=== PATIENT | female | born 1980 | race Caucasian/White ===

== ENCOUNTER 2016-11-15 14:33 | Emergency (ER) | payer OTHER ==
[2016-11-15 17:51] VITALS: BP 130/71
--- NOTE | 2016-11-15 18:16 | UC ---
HPI Febrile Illness - HPI Summary HPI Summary: five days of fever to 102, chills, severe body aches, HALL, malaise, mild [place] dry cough. Has been going to work, but couldn't do it today. 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 Did get a flu shot. No rash. Poor appetite - History of Current Complaint Chief Complaint: UCGeneralIllness Time Seen by Provider: 11/15/16 17:47 Hx Obtained From: Patient Timing: Constant Initial Severity: Mild Current Severity: Moderate Aggravating Factors: Nothing Alleviating Factors: OTC Medicine Associated Signs and Symptoms: Arthralgia, Chills, Cough - dry, mild, Headache, Myalgia, Sore Throat, Weakness - Risk Factors Pseudomonas Risk Factors: Negative Serious Bacterial Infection Risk Factors: Negative - Allergy/Home Medications Allergies/Adverse Reactions: Allergies Allergy/AdvReac Type Severity Reaction Status Date / Time No Known Allergies Allergy Verified 11/15/16 17:51 Home Medications: Home Medications Ibuprofen TAB* [Advil TAB*] 600 mg PO ONCE 11/15/16 [History Confirmed 11/15/16] Topiramate TAB(*) [Topamax(*)] 25 mg PO BEDTIME 11/15/16 [History Confirmed 07/22] PMH/Surg Hx/FS Hx/Imm Hx Previously Healthy: Yes - Surgical History Surgery Procedure, Year, and Place: tubal ligation, cholecystectomy, hysterectomy Infectious Disease History: No Infectious Disease History: Denies: Hx Clostridium Difficile, Hx Hepatitis, Hx Human Immunodeficiency Virus (HIV), Hx of Known/Suspected MRSA, Hx Shingles, Hx Tuberculosis, Hx Known/ Suspected VRE, Hx Known/Suspected VRSA, History Other Infectious Disease, Traveled Outside the [place] in Last 30 Days - Family History Known Family History: Positive: None - Social History Alcohol Use: Occasionally Substance Use Type: Reports: None Smoking Status (MU): Never Smoked Tobacco Review of Systems Constitutional: Fever, Chills, Fatigue Skin: Negative Eyes: Negative ENT: Sore Throat Respiratory: Cough - dry, mild Cardiovascular: Negative Gastrointestinal: Negative Genitourinary: Negative Motor: Negative Neurovascular: Negative Musculoskeletal: Arthralgia, Myalgia Neurological: Negative Psychological: Negative All Other Systems Reviewed And Are Negative: Yes Physical Exam Triage Information Reviewed: Yes Appearance: Well-Appearing, No Pain Distress, Well-Nourished Vital Signs: Initial Vital Signs Temp 97.8 F 11/15/16 17:47 Pulse 74 11/15/16 17:47 Resp 16 11/15/16 17:47 BP 130/71 11/15/16 17:47 Pulse Ox 100 11/15/16 17:47 Vital Signs Reviewed: Yes Eye Exam: Normal Eyes: Positive: Conjunctiva Clear ENT Exam: Normal ENT: Positive: Pharyngeal erythema - mild, Nasal congestion, TMs normal. Negative: Tonsillar swelling, Tonsillar exudate, Trismus, Muffled/hoarse voice Neck exam: Normal Neck: Positive: Supple Respiratory Exam: Normal Respiratory: Positive: Lungs clear, Normal breath sounds, No respiratory distress, No accessory muscle use Cardiovascular Exam: Normal Musculoskeletal Exam: Normal Neurological Exam: Normal Psychological Exam: Normal Skin Exam: Normal Diagnostics - Laboratory Diagnostic Studies Completed/Ordered: Strep neg Course/Dx - Febrile Illness Differential Diagnoses: Meningitis, Pneumonia, Sepsis, Viremia - Diagnoses Clinic Provider Diagnoses: influenza Discharge - Discharge Plan Condition: Stable Disposition: HOME Prescriptions: HYDROcodone/ACET. 7.5/325 LIQ* [Lortab Elixir 7.5/325 per 15 ml *] 5 ml PO Q6H # 100 ml MDD 20ml Patient Education Materials: Influenza (ED) Forms: *Work Release Referrals: Jie Vyas PA [Primary Care Provider] - Additional Instructions: If your fever and sore throat continue another 5 days, consider getting a mono test. There is no treatment for mononucleosis, but sometimes it is reassuring to know why you are still ill.
== END 2016-11-15 18:29 | disposition home or self-care (01) ==
LOC: UCCORT 14:33
DX: J11.1 Influenza due to unidentified influenza virus with other respiratory manifestations (principal)
CPT/HCPCS: 87651; 99212; G0463

== ENCOUNTER 2017-12-12 09:03 | Emergency (ER) | payer OTHER ==
[2017-12-12 09:57] VITALS: BP 126/83
--- NOTE | 2017-12-12 10:23 | UC ---
Knee Pain HPI - HPI Summary HPI Summary: Pt c/o left knee pain. Pt reports slipping on ice 2 weeks ago and falling form standing to left knee. P thas been using ice, NSAIDS X 2 weeks and reports that pain is worsening and radiating both in proximal and distally. - History of Current Complaint Hx Obtained From: Patient Hx Last Menstrual Period: n/a ?: No Onset/Duration: Sudden Onset Severity Initially: Mild Severity Currently: Moderate Pain Intensity: 5 Character: Dull, Aching, Stiffness Aggravating Factor(s): Movement, Weight Bearing, Prolonged Standing, Stairs Alleviating Factor(s): Rest, Position, Cold, OTC Meds Associated Signs And Symptoms: Positive: Negative Able to Bear Weight: Yes - Risk Factors Septic Arthritis Risk Factor: Negative Gout Risk Factor: Negative <Ekaterina Flowers NP - Last Filed: 12/12/17 11:18> <Dmitriy Nichols - Last Filed: 12/12/17 12:05> - History of Current Complaint Chief Complaint: UCLowerExtremity Stated Complaint: LFT KNEE COMPLAINT Time Seen by Provider: 12/12/17 10:06 - Allergies/Home Medications Allergies/Adverse Reactions: Allergies Allergy/AdvReac Type Severity Reaction Status Date / Time No Known Allergies Allergy Verified 12/12/17 09:48 Home Medications: Home Medications Naproxen Sodium 550 mg PO PRN 12/12/17 [History] PMH/Surg Hx/FS Hx/Imm Hx Previously Healthy: Yes - Surgical History Surgical History: Yes Surgery Procedure, Year, and Place: tubal ligation, cholecystectomy, hysterectomy - Family History Known Family History: Positive: Cardiac Disease - Social History Occupation: Employed Full-time Lives: With Family Alcohol Use: Occasionally Substance Use Type: None Smoking Status (MU): Never Smoked Tobacco Have You Smoked in the Last Year: No Household Exposure Type: Cigarettes - Immunization History Most Recent Influenza Vaccination: [id number] <Ekaterina Flowers NP - Last Filed: 12/12/17 11:18> Review of Systems Constitutional: Negative Skin: Negative Eyes: Negative ENT: Negative Respiratory: Negative Cardiovascular: Negative Gastrointestinal: Negative Genitourinary: Negative Motor: Decreased ROM - left knee Neurovascular: Negative Musculoskeletal: Arthralgia, Decreased ROM - left knee, Myalgia Neurological: Negative Psychological: Negative Is Patient Immunocompromised?: No All Other Systems Reviewed And Are Negative: Yes <Ekaterina Flowers NP - Last Filed: 12/12/17 11:18> Physical Exam Triage Information Reviewed: Yes Appearance: Well-Appearing Vital Signs: Initial Vital Signs Temp 98.2 F 12/12/17 09:50 Pulse 94 12/12/17 09:50 Resp 18 12/12/17 09:50 BP 126/83 12/12/17 09:50 Pulse Ox 98 12/12/17 09:50 Vital Signs Reviewed: Yes Eye Exam: Normal ENT Exam: Normal ENT: Positive: Hearing grossly normal Neck exam: Normal Respiratory: Positive: No respiratory distress Musculoskeletal Exam: Other Musculoskeletal: Positive: ROM Limited @ - left knee secondry to pain Neurological Exam: Normal Psychological Exam: Normal Skin Exam: Normal <Ekaterina Flowers NP - Last Filed: 12/12/17 11:18> Vital Signs: Initial Vital Signs Temp 98.2 F 12/12/17 09:50 Pulse 94 12/12/17 09:50 Resp 18 12/12/17 09:50 BP 126/83 12/12/17 09:50 Pulse Ox 98 12/12/17 09:50 <Dmitriy Nichols - Last Filed: 12/12/17 12:05> Diagnostics - Radiology No standard instances Radiology Interpretation Completed By: Radiologist - IMPRESSION: NO ACUTE OSSEOUS INJURY. IF SYMPTOMS PERSIST, RECOMMEND REPEAT IMAGING. <Ekaterina Flowers NP - Last Filed: 12/12/17 11:18> Knee Pain Course/Dx - Course Course Of Treatment: I disucssed with the pt the xray results and referred her to DR. Ordoñez for follow up . - Differential Dx/Diagnosis Differential Diagnosis/HQI/PQRI: Contusion, Sprain, Strain Provider Diagnoses: left knee pain. IMPRESSION: NO ACUTE OSSEOUS INJURY. IF SYMPTOMS PERSIST, RECOMMEND REPEAT IMAGING. <Ekaterina Flowers NP - Last Filed: 12/12/17 11:18> Discharge <Ekaterina Flowers NP - Last Filed: 12/12/17 11:18> <Dmitriy Nichols - Last Filed: 12/12/17 12:05> - Discharge Plan Condition: Stable Disposition: HOME Patient Education Materials: Knee Pain (ED) Referrals: Alexis Ordoñez MD [Medical Doctor] - 12/12/17 3:00 pm Jie Vyas PA [Primary Care Provider] - If Needed Additional Instructions:
--- NOTE | 2017-12-12 10:42 | RAD ---
HISTORY: Fall, subacute trauma, pain COMPARISONS: August 19, 2007 VIEWS: 4, Frontal, lateral, axial, and oblique views of the left knee FINDINGS: BONE DENSITY: Normal. BONES: There is no displaced fracture. JOINTS: There is mild patellofemoral osteoarthritis. There is no suprapatellar joint effusion or lipohemarthrosis. ALIGNMENT: There is no dislocation. SOFT TISSUES: Unremarkable. OTHER FINDINGS: None. IMPRESSION: NO ACUTE OSSEOUS INJURY. IF SYMPTOMS PERSIST, RECOMMEND REPEAT IMAGING.
== END 2017-12-12 11:06 | disposition home or self-care (01) ==
LOC: UCCORT 09:03
DX: W00.0XXA Fall on same level due to ice and snow, initial encounter (principal); Y93.9 Activity, unspecified; Y92.9 Unspecified place or not applicable; M25.562 Pain in left knee
CPT/HCPCS: 99211; G0463

== ENCOUNTER 2018-05-17 08:14 | Emergency (ER) | payer OTHER ==
--- OUTSIDE RECORDS SUMMARY | 2018-05-17 08:22 | XMS REPORT ---
:1980 External Reference #:[id number] Author Organization [facility] 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 Jie Vyas [facility] Primary Care Physician Unavailable Payers Type Date Identification Numbers Payment Provider Subscriber Commercial Effective: Policy Number: [id number] [employer] Lorraine Espinal 2015 PayID: [id number] [address] [place] [address] Problems Date Description Provider Status Onset: 09/01/2013 Endometriosis (clinical) Jie Vyas [facility] Active Onset: 01/04/2013 Depressive disorder Jie Vyas [facility] Active Onset: 09/24/2011 Plantar fascial fibromatosis Citlalli Dominique FNP Active Onset: 03/23/2015 Migraine Jie Vyas [facility] Active Onset: 09/04/2015 Steatosis of liver Jie Vyas [facility] Active Onset: 12/18/2017 Degenerative joint disease involving Jie Vyas [facility] Active multiple joints Note: knee Onset: 01/08/2018 Mixed hyperlipidemia Jie Vyas [facility] Active Onset: 01/08/2018 Vitamin D deficiency Jie Vyas [facility] Active Onset: 04/10/2018 Taking medication Adarsh Leon M.D. Active Onset: 04/10/2018 Increased frequency of urination Adarsh Leon M.D. Active Onset: 11/26/2017 Influenza with respiratory James Dumont M.D. Resolved manifestation other than pneumonia Resolved: 01/08/2018 Onset: 11/26/2017 Fever James Dumont M.D. 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 ETOH Use Currently consumes alcohol socially Smoking Patient has never smoked Allergies, Adverse Reactions, Alerts Date Description Reaction Status Severity Comments 02/20/2015 NKDA active Medications Medication Date Status Form Strength Qnty SIG Indications Ordering Provider Diflucan 05/12 Active Tablets 150mg 1tabs 1 tab by Donato mouth x Eileen Foster 1 for yeast vaginiti s Amoxicillin/Clav 05/01 Active Tablets 875-125mg 20tabs take one J01.90 Catarina ulanate tablet MS Darron, Potassium every 12 TELECOMMUNICATION OPERATOR-C, CNM hours Cheratussin ac 05/01 Active Syrup 100-10mg/ 236ml 5ml by Jennifer 5ML mouth MD Alejandrina every 4 hour as needed cough Atrovent 05/01 Active Solution 0.06% Use 2 J01.90 Catarina sprays MS Darron, twice a TELECOMMUNICATION OPERATOR-C, CNM day Ondansetron HCL 04/27 Active Tablets 8mg 20tabs Take one J11.2 Catarina /2018 tablet MS Darron, every 8 TELECOMMUNICATION OPERATOR-C, CNM hours as needed for nausea and vomiting Sumatriptan Active Tablets 100mg take 1/2 Sa[place], Succinate / - 1 Fahed tablet by mouth at onset of aura, may repeat in 2 hours Naproxen Active Tablets 500mg take one Saada, tablet Fahed by mouth twice a day with food as needed Phendimetrazine Active Tablets 35mg 1 tablet Reinoso, Tartrate / twice MD Americo daily. Benzonatate Active Capsules 100mg Take One Unknown Capsule By Mouth Every 6 Hours as Needed For Cough Doxycycline 05/01 Hx Tablets 100mg 14tabs Take one J01.90 Catarina Monohydrate tablet MS Darron, - two TELECOMMUNICATION OPERATOR-C, CNM 05/01 times a day Levofloxacin 05/01 Hx Tablets 500mg 5tabs Take one J01.90 Catarina tablet MS Darron, - every TELECOMMUNICATION OPERATOR-C, CNM Levofloxacin 05/01 Hx Tablets 750mg 5tabs Take one J.90 Catarina tablet Darron, , - every TELECOMMUNICATION OPERATOR-C, CNM Pseudoephedrine 05/01 Hx Tablets 30mg 30tabs Take one . Catarina HCL every MS Darron, - 4-6 TELECOMMUNICATION OPERATOR-C, CNM 05/01 hours needed for congesti on Loratadine 05/01 Hx Tablets 10mg 1tabs Take one J. Catarina tablet MS Darron, - every TELECOMMUNICATION OPERATOR-C, CNM 05/01 morning Fluticasone 05/01 Hx Suspension 50mcg/Act 31.6ml To use 1 J01.90 Catarina Propionate Nasal or 2 MS Darron, [place] Allergy - sprays TELECOMMUNICATION OPERATOR-C, CNM Relief 24- Hour 05/01 in nostril Atrovent HFA 05/01 Hx Aerosol 17mcg/Act 12.900g use 2 J. Catarina m sprays MS Darron, - in each TELECOMMUNICATION OPERATOR-C, CNM 05/01 nostril /2017 twice a day Pyridium 04/10 Hx Tablets 200mg 6tabs take 1 R30.0 Andras tablet Eileen Leon - by mouth 04/27 three times a day after meals for 2 days (generic [place]) Ciprofloxacin 04/10 Hx Tablets 250mg 6tabs take 1 R30.0 Andras HCL tablet Eileen Leon - twice 04/27 daily for 3 days Fluconazole 12/29 Hx Tablets 150mg 2tabs 1 tab by Jennifer mouth MD Alejandrina - once, 01/08 repeat as needed. Monistat 7 12/29 Hx Cream 2% 1Tube apply to Jennifer Simply affected MD Alejandrina - area of 01/08 vaginal area one daily Methylprednisolo 12/23 Hx Tablets 4mg start 6 Unknown tabs on - day one 04/10 decrease by 1 tab each day until gone Oseltamivir 11/26 Hx Capsules 75mg 10caps 1 tab by J11.1 James Phosphate mouth [place], - twice a M.DDesirae 12/29 day 5 days Cyclobenzaprine 10/20 Hx Tablets 10mg 30tabs take 1 M62.830 Donato HCL tablet Eileen Foster - every 8 for muscle spasm as needed Cefuroxime 10/07 Hx Tablets 500mg 28tabs 1 tab by J01.90 Donato Axetil mouth Eileen Foster - twice a Dulera 10/07 Hx Aerosol 100-5mcg/ sample 2 puffs Act twice a Eileen Foster - day 04/10 Azithromycin 09/01 Hx Tablets 250mg 6tabs 2 tabs by mouth Eileen Foster today, then one tab by mouth daily Benzonatate 09/01 Hx Capsules 200mg 30caps 1 cap by R05 varun Foster M.D. three times a day cough Omeprazole 05/20 Hx Capsules 20mg 30caps Take One DR Milagros Foster M.D. - By Mouth 04/10 Day No Active 05/19 Hx Unknown Medications /2016 - 05/19 Cephalexin 05/19 Hx Tablets 500mg 30tabs 1 tab J01.90 Donato (or cap) Eileen Foster by mouth three times a day Fluoxetine HCL 04/03 Hx Capsules 40mg 30caps 1 by F43.23 mouth Eileen Foster every day Cephalexin 02/20 Hx Tablets 500mg 30tabs 1 tab J02.9 Donato (or cap) Eileen Foster - by mouth 04/03 times a day Magnesium-Oxide 02/10 Hx Tablets 400(241.3 90tabs 1 by Donato mg) mg mouth Eileen Foster every day Oxycodone HCL 01/23 Hx Tablets 10mg 30tabs 1 tab by Donato varun Foster M.D. - every 02/20- hours as needed migraine pain ::: Bactrim DS 11/22 Hx Tablets 800-160mg 20tabs 1 tab by Burt Donato varun Foster M.D. - twice a Amoxicillin 11/18 Hx Tablets 875mg 14tabs 1 tab by Burt Mayer varun Foster M.D. - twice a Fluconazole 11/18 Hx Tablets 150mg 1tabs 1 tab by Burt Sewell varun Foster M.D. - today 01/23 Frovatriptan 08/23 Hx Tablets 2.5mg 18tabs 1 tab po G43.009 Pedro E. Succinate at start [facility] - of Farfan, 11/18 repeat in 2 hrs, or at 4 hrs if necessar y Diclofenac 08/[address] 75mg 60tabs take one Pedro E. Sodium tablet Justin DO - by mouth 11/18 twice a day with food for pain Rizatriptan 08/15 Hx Tablets 10mg 14tabs 1 by G43.009 Pedro E. Benzoate mouth at [place] DO - start of 08/23 farfan/auraFebruary repeat in 2 hours Fluoxetine HCL 08/15 Hx Capsules 20mg 30caps Take One F43.an Milagros Foster M.D. - By Mouth 04/03 Day Fluoxetine HCL 08/01 Hx Capsules 10mg 30caps 1 by F43.23 Pedro E. /2015 mouth Justin DO - every Hydroxyzine HCL 08/01 Hx Tablets 10mg 60tabs take one F43.23 Pedro E. tablet Justin DO by mouth every 4 hours as needed for anxiety, may use 2 tabs qhs Escitalopram 02/04 Hx Tablets 10mg 30tabs Take One Pedro E. Oxalate Tablet Justin DO - By Mouth 08/04 Day Work Note 12/27 Hx May Pedro E. return Justin DO - to work 08/04/ 6....no restrict ions Metronidazole 12/26 Hx Tablets 500mg 21tabs 1 tab by A09 Pedro Wiggins mouth Justin DO - three 01/03 times a day Ondansetron HCL 12/26 Hx Tablets 8mg 14tabs take 1 A09 Pedro Wiggins tablet Justin DO by mouth every 8 hours as needed for nausea Meclizine HCL 11/07 Hx Tablets 12.5mg 30tabs one-two H81.10 Pedro Wiggins tabs Justin DO - every 6 10/21 hour by mouth as needed dizzines s Multivital-M 11/07 Hx Tablets 90tabs 1 by Pedro Wiggins mouth Justin DO every day Cephalexin 11/01 Hx Capsules 500mg 30caps 1 cap ( Pedro Wiggins or tab) Justin DO - by mouth 11/12 times a day Naprosyn 10/20 Hx Tablets 500mg 1 by mouth - twice a after meals Naproxen Kit 10/19 Hx Tablets 500mg 30tabs 2 Times A Day - prn 08/15 headache Note For Work 10/18 Hx Evaluate Noemy Wiggins d at Justin [facility] - Primary 11/07 Care for acute migraine headache . Please excuse Ondansetron 10/18 Hx Tablets 8mg 30tabs 1 tab by G43.Chandan Wiggins Dispers mouth Justin DO - every 8 01/02 hours needed nausea/m igraine Oxycodone HCL 10/18 Hx Capsules 5mg 30caps 1 cap by Lois3.Chandan Wiggins mouth Justin DO - every 4 10/21 hours needed migraine farfan ::: Referenc e #: [id number] Sumatriptan 10/18 Hx Tablets 100mg 9tabs one by Noemy Wiggins Succinate mouth at Justin DO - Onset of 08/15 headache , may repeat in 2 hours Diflucan 09/22 Hx Tablets 150mg 2tabs 1 tab by Pedro Wiggins mouth x Justin DO - 1 for 10/18 yeast vaginiti s Anexsia 09/04 Hx Tablets 5-325mg 15tabs Every 4 Hours as - Needed 10/18 prn Pain Ondansetron HCL 09/04 Hx Tablets 4mg 15tabs Every 8 Unknown Hours as - Needed 10/18 prn Nausea Cephalexin 08/24 Hx Capsules 500mg 30caps 1 cap ( J01.90 Pedro Wiggins /2014 or tab) Justin DO - by mouth 09/22 three times a day Mucinex 08/24 Hx Tablets ER 600mg 30tabs take two J01.90 Pedro Wiggins 12HR by mouth Justin [facility] - twice a 10/18 day for /2016 congesti on Work Note 08/24 Hx Evaluate Pedro Wiggins /2014 d for Justin [facility] - acute 09/22 illness today at Primary Care. Please excuse Fluticasone 08/24 Hx Suspension 50mcg/Act 16units [place] 2 J01.90 Pedro Wiggins Propionate Sprays Justin [facility] - In Each 05/19 Nostril /2016 Once Daily Neomycin/Polymyx 05/19 Hx Suspension 3.5-56443 7.500ml 3 drops 380.10 Pedro Wiggins in/Hydrocortison /2014 -1 to (L) Justin [facility] e - ear four 08/24 times a day Cefuroxime 05/19 Hx Tablets 500mg 20tabs 1 tab by 380.10 Pedro Wiggins Axetil /2014 mouth Justin [facility] - twice a /2014 Acetaminophen-Co 05/19 Hx Tablets 300-30mg 30tabs 1-2 by 380.10 Pedro Wiggins deine #3 /2014 mouth Justin [facility] - every 4 08/24 hours needed ... Nabumetone 04/06 Hx Tablets 750mg 30tabs take 2 789.07 Pedro Wiggins tablets Justin DO - by mouth 08/24 every evening with food for abdl pain Azithromycin 03/23 Hx Tablets 250mg 6tabs 2 tabs 786.2 Pedro Wiggins /2014 by mouth Justin [facility] today then one tab by mouth daily Benzonatate 03/23 Hx Capsules 200mg 30caps 1 cap by 786.2 Pedro Wiggins mouth Justin [facility] three times a day as needed cough Fluticasone 02/20 Hx Suspension 50mcg/Act 2 sprays Katie Propionate Jairo Hernandez every M.D. Lupron Depot 02/20 Hx Kit 30mg q 3 Katie /2014 months Chiquita, - per Dr Arellano 03/22 Reinoso Sumatriptan 02/20 Hx Tablets 100mg 1 tab by Katie mouth @ [place]ita, - start of M.D. 03/22 farfan, february repeat in 2 hours Escitalopram 02/20 Hx Tablets 10mg 30tabs Take One Katie Oxalate Tablet Chiquita, - By Mouth M.DDesirae 03/22 Day Escitalopram 02/20 Hx Tablets 10mg 30tabs Take One Katie Oxalate Tablet Chiquita, - By Mouth M.D. 01/18 Day Omeprazole 02/20 Hx Capsules 20mg 30caps Take One Pedro Wiggins DR Milagros Anderson DO - By Mouth 04/03 Day Topiramate 02/20 Hx Tablets 25mg 90tabs take one Donato tab in Eileen Foster the morning and three tablets by mouth at bedtime Flonase 11/16 Hx Suspension 50mcg/Act 16units 2 sprays [place]iquita, to each Katie, - nostril 03/22 day Lupron Depot 10/12 Hx Kit 11.25mg per Kyburz Fluticasone Hx Suspension 50mcg/Act 2 sprays Unknown Propionate /0000 intranas - al every Naproxen Sodium Hx Capsules 220mg as Unknown /0000 Needed - 10/18 Omeprazole Hx Capsules 20.6(20Ba 30caps Once Unknown Magnesium /0000 DR condon) mg Daily - 01/02 Calcium 600 + D 00 Hx Tablets 600-200mg 2 by Unknown /0000 -Unit mouth - once 05/19 Hydrocodone Hx Solution 7.5-325mg Take 5 Unknown Bitartrate/Aceta /0000 /15ML ML By minophen - Mouth 01/23 Every Hours For Pain Sore Throat Max Day 20ML Medications Administered in Office Medication Date Status Form Strength Qnty SIG Indications Ordering Provider Injection Administered Injection Jie Ketorolac 017 [place], Tromethamine 30 RPAC MG/mL (Toradol) Injection Administered Injection Jie Ketorolac 016 [place], Tromethamine 30 RPAC MG/mL (Toradol) Injection Administered Injection Jie Ketorolac 016 [place], Tromethamine 30 RPAC MG/mL (Toradol) Immunizations CPT Code Status Date Vaccine Lot # [id number] Given 08/15/2016 Tdap injection [id number] Given 11/07/2015 Influenza Vaccine (Fluzone) Age 3 And Older [id number] Given 07/25/2011 flu vaccination 90911 Given 10/19/2009 flu vaccination 29670 Given 10/19/2009 H1N1 Immuniation Adminstration 28608 Given 10/19/2009 H1N1 Immuniation Adminstration Vital Signs Date Vital Result Comment 05/08/2018 BP Systolic Sitting Right Arm 121 mmHg BP Diastolic Sitting Right Arm 86 mmHg Body Temperature 97.8 F Heart Rate 99 /min Respiratory Rate 16 /min Height 62.5 inches 5'2.50" Weight 178.00 lb BMI (Body Mass Index) 32.0 kg/m2 BSA (Body Surface Area) 1.83 m2 [place] body weight in kilograms 51 O2 % BldC Oximetry 95 % 05/01/2018 Body Temperature 99.1 F Heart Rate 97 /min Respiratory Rate 20 /min Height 62.5 inches 5'2.50" Weight 179.00 lb BMI (Body Mass Index) 32.2 kg/m2 BSA (Body Surface Area) 1.83 m2 [place] body weight in kilograms 51 O2 % BldC Oximetry 97 % Ra 04/27/2018 BP Systolic Sitting Left Arm 126 mmHg BP Diastolic Sitting Left Arm 87 mmHg Body Temperature 102.5 F Heart Rate 120 /min Respiratory Rate 18 /min Height 62.5 inches 5'2.50" Weight 183.00 lb BMI (Body Mass Index) 32.9 kg/m2 BSA (Body Surface Area) 1.85 m2 [place] body weight in kilograms 51 O2 % BldC Oximetry 98 % Ra 04/10/2018 BP Systolic Sitting Right Arm 110 mmHg BP Diastolic Sitting Right Arm 74 mmHg Body Temperature 97.4 F Heart Rate 92 /min reg Respiratory Rate 18 /min Height 62.5 inches 5'2.50" Weight 180.00 lb BMI (Body Mass Index) 32.4 kg/m2 BSA (Body Surface Area) 1.84 m2 [place] body weight in kilograms 51 O2 % BldC Oximetry 98 % ra 12/29/2017 BP Systolic Sitting Right Arm 130 mmHg BP Diastolic Sitting Right Arm 82 mmHg Body Temperature 98.2 F Heart Rate 100 /min Height 62.5 inches 5'2.50" Weight 197.00 lb BMI (Body Mass Index) 35.5 kg/m2 BSA (Body Surface Area) 1.91 m2 [place] body weight in kilograms 51 11/26/2017 BP Systolic Sitting Right Arm 102 mmHg BP Diastolic Sitting Right Arm 60 mmHg Body Temperature 98.4 F Heart Rate 87 /min Height 62.5 inches 5'2.50" Weight 189.00 lb BMI (Body Mass Index) 34.0 kg/m2 BSA (Body Surface Area) 1.88 m2 [place] body weight in kilograms 51 O2 % BldC Oximetry 97 % ra 10/20/2017 BP Systolic Sitting Right Arm 118 mmHg BP Diastolic Sitting Right Arm 78 mmHg Heart Rate 92 /min Height 62.5 inches 5'2.50" Weight 195.00 lb BMI (Body Mass Index) 35.1 kg/m2 BSA (Body Surface Area) 1.90 m2 [place] body weight in kilograms 51 O2 % BldC Oximetry 97 % ra 10/07/2017 BP Systolic Sitting Right Arm 118 mmHg BP Diastolic Sitting Right Arm 68 mmHg Heart Rate 104 /min Height 62.5 inches 5'2.50" Weight 196.00 lb BMI (Body Mass Index) 35.3 kg/m2 BSA (Body Surface Area) 1.91 m2 [place] body weight in kilograms 51 O2 % BldC Oximetry 98 % 09/01/2017 Body Temperature 97.5 F Heart Rate 83 /min Respiratory Rate 18 /min Height 62.5 inches 5'2.50" Weight 189.00 lb BMI (Body Mass Index) 34.0 kg/m2 BSA (Body Surface Area) 1.88 m2 [place] body weight in kilograms 51 O2 % BldC Oximetry 98 % ra 05/19/2017 BP Systolic Sitting Right Arm 118 mmHg BP Diastolic Sitting Right Arm 82 mmHg Body Temperature 97.8 F Heart Rate 78 /min Respiratory Rate 18 /min Height 62.5 inches 5'2.50" Weight 192.00 lb BMI (Body Mass Index) 34.6 kg/m2 BSA (Body Surface Area) 1.89 m2 [place] body weight in kilograms 51 O2 % BldC Oximetry 98 % ra 04/03/2017 BP Systolic Sitting Right Arm 132 mmHg BP Diastolic Sitting Right Arm 72 mmHg Height 62.5 inches 5'2.50" Weight 192.00 lb BMI (Body Mass Index) 34.6 kg/m2 BSA (Body Surface Area) 1.89 m2 [place] body weight in kilograms 51 02/20/2017 BP Systolic Sitting Right Arm 128 mmHg BP Diastolic Sitting Right Arm 68 mmHg Body Temperature 97.8 F Height 62.5 inches 5'2.50" Weight 189.50 lb BMI (Body Mass Index) 34.1 kg/m2 BSA (Body Surface Area) 1.88 m2 [place] body weight in kilograms 51 01/23/2017 BP Systolic Sitting Left Arm 136 mmHg BP Diastolic Sitting Left Arm 74 mmHg Height 62.5 inches 5'2.50" Weight 189.12 lb BMI (Body Mass Index) 34.0 kg/m2 BSA (Body Surface Area) 1.88 m2 11/18/2016 BP Systolic 118 mmHg BP Diastolic 86 mmHg Body Temperature 97.7 F Heart Rate 90 /min Respiratory Rate 16 /min Height 62.5 inches 5'2.50" Weight 193.00 lb BMI (Body Mass Index) 34.7 kg/m2 BSA (Body Surface Area) 1.89 m2 O2 % BldC Oximetry 95 % 10/21/2016 BP Systolic Sitting Right Arm 122 mmHg BP Diastolic Sitting Right Arm 80 mmHg Body Temperature 97.8 F Heart Rate 88 /min Height 62.5 inches 5'2.50" Weight 192.25 lb BMI (Body Mass Index) 34.6 kg/m2 BSA (Body Surface Area) 1.89 m2 O2 % BldC Oximetry 98 % 08/15/2016 BP Systolic Sitting Right Arm 122 mmHg BP Diastolic Sitting Right Arm 80 mmHg Height 62.5 inches 5'2.50" Weight 193.50 lb BMI (Body Mass Index) 34.8 kg/m2 BSA (Body Surface Area) 1.90 m2 08/01/2016 BP Systolic 132 mmHg BP Diastolic 88 mmHg Heart Rate 68 /min Respiratory Rate 18 /min Height 62.5 inches 5'2.50" Weight 196.00 lb BMI (Body Mass Index) 35.3 kg/m2 BSA (Body Surface Area) 1.91 m2 01/19/2016 BP Systolic 130 mmHg BP Diastolic 98 mmHg Body Temperature 98.1 F Heart Rate 98 /min Respiratory Rate 16 /min Height 62.5 inches 5'2.50" Weight 194.00 lb BMI (Body Mass Index) 34.9 kg/m2 BSA (Body Surface Area) 1.90 m2 O2 % BldC Oximetry 96 % 12/27/2015 BP Systolic 112 mmHg BP Diastolic 64 mmHg Body Temperature 98.1 F Height 62.5 inches 5'2.50" Weight 193.00 lb BMI (Body Mass Index) 34.7 kg/m2 BSA (Body Surface Area) 1.89 m2 11/07/2015 BP Systolic Sitting Left Arm 138 mmHg BP Diastolic Sitting Left Arm 94 mmHg Body Temperature 97.3 F Height 62 inches 5'2" Weight 185.00 lb BMI (Body Mass Index) 33.8 kg/m2 BSA (Body Surface Area) 1.85 m2 10/18/2015 BP Systolic Sitting Left Arm 138 mmHg BP Diastolic Sitting Left Arm 74 mmHg Body Temperature 98.1 F Heart Rate 84 /min Height 62 inches 5'2" Weight 186.25 lb BMI (Body Mass Index) 34.1 kg/m2 BSA (Body Surface Area) 1.85 m2 O2 % BldC Oximetry 100 % 08/24/2015 BP Systolic 112 mmHg BP Diastolic 70 mmHg Body Temperature 98.2 F Heart Rate 94 /min Height 62 inches 5'2" Weight 186.00 lb BMI (Body Mass Index) 34.0 kg/m2 BSA (Body Surface Area) 1.85 m2 O2 % BldC Oximetry 99 % 05/19/2015 BP Systolic 124 mmHg BP Diastolic 72 mmHg Body Temperature 98.0 F Height 62 inches 5'2" Weight 191.00 lb BMI (Body Mass Index) 34.9 kg/m2 BSA (Body Surface Area) 1.87 m2 04/06/2015 BP Systolic Sitting Left Arm 131 mmHg BP Diastolic Sitting Left Arm 92 mmHg Heart Rate 78 /min Respiratory Rate 14 /min Weight 180.00 lb O2 % BldC Oximetry 93 % 03/23/2015 BP Systolic 127 mmHg BP Diastolic 88 mmHg Body Temperature 96.5 F Heart Rate 87 /min Respiratory Rate 18 /min Weight 192.00 lb 11/16/2014 BP Systolic 132 mmHg BP Diastolic 70 mmHg Body Temperature 98.7 F Height 62 inches 5'2" Weight 199.00 lb 10/27/2014 BP Systolic 122 mmHg BP Diastolic 72 mmHg Weight 198.00 lb 08/09/2014 BP Systolic 134 mmHg BP Diastolic 86 mmHg Weight 192.00 lb O2 % BldC Oximetry 99 % 04/26/2014 BP Systolic 122 mmHg BP Diastolic 68 mmHg Weight 194.00 lb 04/21/2014 BP Systolic 118 mmHg BP Diastolic 68 mmHg Weight 194.00 lb 03/24/2014 BP Systolic 122 mmHg BP Diastolic 70 mmHg Weight 199.00 lb 11/15/2013 BP Systolic 118 mmHg BP Diastolic 70 mmHg Weight 197.00 lb 10/25/2013 Weight 194.00 lb 10/25/2013 BP Systolic 134 mmHg BP Diastolic 70 mmHg 09/13/2013 BP Systolic 124 mmHg BP Diastolic 72 mmHg Results Test Date Test Result H/L Range Note Influenza A/B Antigen 05/01/2018 Influenza A Antigen Negative (Negative) Influenza B Antigen Negative (Negative) 1 CBS W/Automated Diff 05/01/2018 White Blood Count 11.0 K/uL High 3.1-10.7 2 Red Blood Count 4.31 M/uL 3.90-5.40 2 Hemoglobin 12.6 gm/dL 11.6-15.8 2 Hematocrit 37.7 % 36.0-46.1 2 Mean Cell Volume 87.5 fl 80.9-99.0 2 Mean Corpuscular HGB 29.2 pg 25.9-32.7 2 Mean Corpuscular HGB Conc 33.4 g/dL 30.8-34.3 2 Platelet Count 398 K/uL High 155-360 2 Red Cell Distri Width SD 38.2 fl 3-47 2 Red Cell Distri Width %CV 12.1 % 11.7-14.4 2 Mean Platelet Volume 10.3 fL 8.9-12.4 2 Neut% 67.0 % 40.4-72.8 2 Lymph % 23.8 % 20.0-42.0 2 [place] % 7.2 % 4.3-13.2 2 Eo% 1.6 % 0.0-6.6 2 Bas% 0.4 % 0.0-1.1 2 Neut# 7.36 K/uL High 1.8-7.0 2 Lymph # 2.61 K/uL 1.0-4.0 2 [place] # 0.79 K/uL 0.3-0.9 2 Eos # 0.18 K/uL 0.0-0.5 2 Baso # 0.04 K/uL 0.0-0.1 2 Laboratory test 05/01/2018 [place] Screen NEGATIVE Negative 2, 3 finding (Heterophile) Slide Review 05/01/2018 Slide Review (SEE NOTE) 2, 4 Throat Culture 04/27/2018 Throat Culture NORMAL THROAT FL 5, 6 Complete Complete <SEE NOTE> Urine Dipstick 04/10/2018 Ua Color dark yellow Yellow Ua Clarity clear Clear Ua Leuko negative Negative Ua Nitrite negative Negative Ua Urobilinogen 0.2 0.2 - 1.0 E.U./dL Ua Protein trace Negative Ua PH 6.0 Low 6.5-7.5 Ua Blood negative Negative Ua Specific [place] 1.030 1.010-1.030 Ua Ketones trace Negative Ua Bilirubin negative Negative Ua Glucose negative Negative Ua RFX Micro & Culture II 04/10/2018 Urine Color YELLOW Yellow 7 Urine Clarity CLEAR Clear 7 Urine Glucose - Dipstick NEGATIVE mg/dL Negative 7 Urine Bilirubin - Dipstick NEGATIVE Negative 7 Urine Ketone NEGATIVE mg/dL Negative 7 Urine Specific [place] 1.020 1.010-1.030 7 Urine Blood NEGATIVE Negative 7 Urine PH 6.5 6.5-7.5 7 Urine Protein - Dipstick NEGATIVE mg/dL Negative 7 Urine Urobilinogen - Dipstick 0.2 E.U./dL 0.2-1.0 7 Urine Nitrite - Dipstick NEGATIVE Negative 7 Urine Leuk Esterase NEGATIVE Negative 7 Source: URINE, CLEAN CAT <SEE NOTE> 7, 8 Urine Culture 04/10/2018 Urine Culture NO GROWTH: 7, 9 FINAL <SEE NOTE> Ketones Ur 05/10/2017 Ketones Ur Negative Negative Strip.auto-mCnc Strip.auto-mCnc Leukocyte esterase 05/10/2017 Leukocyte esterase Negative Negative Ur Ql Strip.auto Ur Ql Strip.auto Lymphocytes 05/10/2017 Lymphocytes 2.68 1.0-4.0 [#/volume] in Blood [#/volume] in Blood by Automated count by Automated count Lymphocytes/leuk NFr 05/10/2017 Lymphocytes/leuk NFr 32.0 20.0-42.0 Bld Auto Bld Auto MCV RBC Auto 05/10/2017 MCV RBC Auto 85.2 80.9-99.0 Monocytes/leuk NFr 05/10/2017 Monocytes/leuk NFr 6.7 4.3-13.2 Bld Auto Bld Auto Neutrophils # Bld 05/10/2017 Neutrophils # Bld 4.96 1.8-7.0 Auto Auto Neutrophils/leuk NFr 05/10/2017 Neutrophils/leuk NFr 59.2 40.4-72.8 Bld Auto Bld Auto Nitrite Ur Ql 05/10/2017 Nitrite Ur Ql Negative Negative Strip.auto Strip.auto PMV Bld Auto 05/10/2017 PMV Bld Auto 10.5 8.9-12.4 Platelets [#/volume] 05/10/2017 Platelets [#/volume] 309 150-400 in Blood by in Blood by Automated count Automated count Potassium SerPl-sCnc 05/10/2017 Potassium SerPl-sCnc 4.1 3.5-5.1 Prot SerPl-mCnc 05/10/2017 Prot SerPl-mCnc 8.2 6.4-8.2 Prot Ur 05/10/2017 Prot Ur Trace Negative Strip.auto-mCnc Strip.auto-mCnc RDW RBC Auto 05/10/2017 RDW RBC Auto 38.6 3-47 RDW RBC Auto-Rto 05/10/2017 RDW RBC Auto-Rto 12.7 11.7-14.4 Serum or plasma 05/10/2017 Serum or plasma 139 73-393 lipase measurement lipase measurement (enzymatic acti (enzymatic activity/volume) Serum or plasma 05/10/2017 Serum or plasma 0.4 0.2-1.0 total bilirubin total bilirubin measurement (mass/ measurement (mass/volume) Sodium SerPl-sCnc 05/10/2017 Sodium SerPl-sCnc 140 136-145 Urine appearance 05/10/2017 Urine appearance Clear Clear determination determination Urine glucose 05/10/2017 Urine glucose Negative Negative measurement by measurement by automated test strip automated test strip (mass/volume) Urine hemoglobin 05/10/2017 Urine hemoglobin Negative Negative detection by detection by automated test strip automated test strip Urine total 05/10/2017 Urine total Negative Negative bilirubin detection bilirubin detection by automated test by automated test strip Urobilinogen Ur 05/10/2017 Urobilinogen Ur 0.2 0.2-1.0 Strip-aCnc Strip-aCnc WBC # Bld Auto 05/10/2017 WBC # Bld Auto 8.4 3.1-10.7 pH Ur Strip.auto 05/10/2017 pH Ur Strip.auto 6.0 Low 6.5-7.5 Ua RFX Micro & 05/10/2017 Urine Color YELLOW Yellow 10 Culture II Urine Clarity CLEAR Clear 10 Urine Glucose - Dipstick NEGATIVE mg/dL Negative 10 Urine Bilirubin - Dipstick NEGATIVE Negative 10 Urine Ketone NEGATIVE mg/dL Negative 10 Urine Specific [place] >=1.030 1.010-1.030 10 Urine Blood NEGATIVE Negative 10 Urine PH 6.0 Low 6.5-7.5 10 Urine Protein - Dipstick TRACE mg/dL Negative 10 Urine Urobilinogen - Dipstick 0.2 E.U./dL 0.2-1.0 10 Urine Nitrite - Dipstick NEGATIVE Negative 10 Urine Leuk Esterase NEGATIVE Negative 10 Source: URINE, CLEAN CAT <SEE NOTE> 10, 11 CBS W/Automated Diff 05/10/2017 White Blood Count 8.4 K/uL 3.1-10.7 10 Red Blood Count 4.54 M/uL 3.90-5.40 10 Hemoglobin 13.7 gm/dL 11.6-15.8 10 Hematocrit 38.7 % 36.0-46.1 10 Mean Cell Volume 85.2 fl 80.9-99.0 10 Mean Corpuscular HGB 30.2 pg 25.9-32.7 10 Mean Corpuscular HGB Conc 35.4 g/dL High 30.8-34.3 10 Platelet Count 309 K/uL 150-400 10 Red Cell Distri Width SD 38.6 fl 3-47 10 Red Cell Distri Width %CV 12.7 % 11.7-14.4 10 Mean Platelet Volume 10.5 fL 8.9-12.4 10 Neut% 59.2 % 40.4-72.8 10 Lymph % 32.0 % 20.0-42.0 10 [place] % 6.7 % 4.3-13.2 10 Eo% 1.6 % 0.0-6.6 10 Bas% 0.5 % 0.0-1.1 10 Neut# 4.96 K/uL 1.8-7.0 10 Lymph # 2.68 K/uL 1.0-4.0 10 [place] # 0.56 K/uL 0.3-0.9 10 Eos # 0.13 K/uL 0.0-0.5 10 Baso # 0.04 K/uL 0.0-0.1 10 Comprehensive Metabolic Panel 05/10/2017 Glucose 117 mg/dL High 74-106 10 BUN 11 mg/dL 7-18 10 Creatinine 0.7 mg/dL 0.6-1.3 10 Glom Filtration Rate, Estimate >60 mL/min >60 10 If >60 mL/min >60 10, 12 BUN/Creat 15.7 ratio 10 Sodium 140 mmol/L 136-145 10 Potassium 4.1 mmol/L 3.5-5.1 10 Chloride 107 mmol/L 98-107 10 Carbon Dioxide 26 mmol/L 21-32 10 Anion Gap 7 mEq/L Low 8-16 10 Calcium 8.9 mg/dL 8.5-10.1 10 Total Protein 8.2 g/dL 6.4-8.2 10 Albumin 3.7 g/dL 3.4-5.0 10 Globulin 4.5 g/dL High 1.9-4.3 10 Alb/Glob 0.8 ratio 10 Bilirubin,Total 0.4 mg/dL 0.2-1.0 10 Sgot/Ast 32 U/L 15-37 10 SGPT/Alt 40 U/L 12-78 10 Alkaline Phosphatase 111 U/L 45-117 10 Laboratory test finding 05/10/2017 Lipase 139 U/L 73-393 10 HCG,Serum (Qualitative) NEGATIVE (Negative) 10, 13 Alp SerPl-cCnc 05/10/2017 Alp SerPl-cCnc 111 45-117 Alt SerPl-cCnc 05/10/2017 Alt SerPl-cCnc 40 12-78 Albumin SerPl-mCnc 05/10/2017 Albumin SerPl-mCnc 3.7 3.4-5.0 Albumin/Glob SerPl 05/10/2017 Albumin/Glob SerPl 0.8 Anion Gap SerPl-sCnc 05/10/2017 Anion Gap SerPl-sCnc 7 Low 8-16 Aspartate 05/10/2017 Aspartate 32 15-37 aminotransferase aminotransferase [Enzymatic activity/vol [Enzymatic activity/volume] in Serum or Plasma Automated erythrocyte 05/10/2017 Automated erythrocyte 30.2 25.9-32.7 mean corpuscular mean corpuscular hemoglobin hemoglobin (mass per erythrocyte) Automated erythrocyte 05/10/2017 Automated erythrocyte 35.4 High 30.8- 34.3 mean corpuscular mean corpuscular hemoglobin hemoglobin concentration measurement (mass/volume) BUN SerPl-mCnc 05/10/2017 BUN SerPl-mCnc 11 7-18 BUN/Creat SerPl 05/10/2017 BUN/Creat SerPl 15.7 Hct VFr Bld Auto 05/10/2017 Hct VFr Bld Auto 38.7 36.0-46.1 Glucose [Mass/volume] 05/10/2017 Glucose [Mass/volume] 117 High 74-106 in Serum or Plasma in Serum or Plasma Globulin Ser Calc-mCnc 05/10/2017 Globulin Ser Calc-mCnc 4.5 High 1.9-4.3 Eosinophil/leuk NFr Bld 05/10/2017 Eosinophil/leuk NFr 1.6 0.0-6.6 Auto Bld Auto Eosinophil # Bld Auto 05/10/2017 Eosinophil # Bld Auto 0.13 0.0-0.5 Creat SerPl-mCnc 05/10/2017 Creat SerPl-mCnc 0.7 0.6-1.3 Color Ur 05/10/2017 Color Ur Yellow Yellow Chloride SerPl-sCnc 05/10/2017 Chloride SerPl-sCnc 107 98-107 Calcium SerPl-mCnc 05/10/2017 Calcium SerPl-mCnc 8.9 8.5-10.1 Co2 SerPl-sCnc 05/10/2017 Co2 SerPl-sCnc 26 21-32 Blood monocytes 05/10/2017 Blood monocytes 0.56 0.3-0.9 automated count automated count (number/volume) (number/volume) Blood hemoglobin 05/10/2017 Blood hemoglobin 13.7 11.6-15.8 measurement measurement (mass/volume) (mass/volume) Blood erythrocytes 05/10/2017 Blood erythrocytes 4.54 3.90-5.40 automated count automated count (number/volume) (number/volume) Basophils/leuk NFr Bld 05/10/2017 Basophils/leuk NFr Bld 0.5 0.0-1.1 Auto Auto Basophils [#/volume] in 05/10/2017 Basophils [#/volume] 0.04 0.0-0.1 Blood by Automated in Blood by Automated count count Xray 02/28/2017 Foot, 2 Views, Left <pending> Laboratory test finding 11/15/2016 Rapid Strep Molecular Negative Negative 14 CBS W/Automated Diff 10/21/2016 White Blood Count 8.8 K/uL 3.1-10.7 15 Red Blood Count 4.67 M/uL 3.90-5.40 15 Hemoglobin 13.7 gm/dL 11.6-15.8 15 Hematocrit 40.2 % 36.0-46.1 15 Mean Cell Volume 86.1 fl 80.9-99.0 15 Mean Corpuscular HGB 29.3 pg 25.9-32.7 15 Mean Corpuscular HGB Conc 34.1 g/dL 30.8-34.3 15 Platelet Count 331 K/uL 155-360 15 Red Cell Distri Width SD 40.2 fl 3-47 15 Red Cell Distri Width %CV 13.1 % 11.7-14.4 15 Mean Platelet Volume 10.9 fL 8.9-12.4 15 Neut% 61.0 % 40.4-72.8 15 Lymph % 30.9 % 20.0-42.0 15 [place] % 6.2 % 4.3-13.2 15 Eo% 1.6 % 0.0-6.6 15 Bas% 0.3 % 0.0-1.1 15 Neut# 5.38 K/uL 1.8-7.0 15 Lymph # 2.73 K/uL 1.0-4.0 15 [place] # 0.55 K/uL 0.3-0.9 15 Eos # 0.14 K/uL 0.0-0.5 15 Baso # 0.03 K/uL 0.0-0.1 15 Liver Function Tests 10/21/2016 Total Protein 7.8 g/dL 6.4-8.2 15 Albumin 3.9 g/dL 3.4-5.0 15 Globulin 3.9 g/dL 1.9-4.3 15 Alb/Glob 1.0 ratio 15 Bilirubin,Total 0.7 mg/dL 0.2-1.0 15 Bilirubin,Direct 0.1 mg/dL 0.0-0.2 15 Bilirubin,Indirect 0.6 mg/dL 0.0-0.9 15 Sgot/Ast 24 U/L 15-37 15 SGPT/Alt 34 U/L 12-78 15 Alkaline Phosphatase 100 U/L 45-117 15 Laboratory test finding 10/21/2016 Lipase 149 U/L 73-393 15 Amylase 63 U/L 25-115 15 Laboratory test 12/27/2015 Cryptosporidium Antigen Negative For finding Cryptosporidium Specific Antigen Giardia Antigen (Hal) Negative For Giardia Specific Antigen. Shiga Toxin Test Shiga Toxin 1 Not Detected Stool Culture Organism: No Enteric Pathogens Isolated Laboratory test finding 12/27/2015 Aerobic Blood Culture No Growth: Final Report Anaerobic Blood Culture No Growth: Final Report Blood Culture 12/27/2015 Blood Culture Aerobic See Note 16 Blood Culture Anaerobic See Note 17 Urine Screen 12/26/2015 Urine Color YELLOW Yellow Urine Clarity SL CLOUDY Clear Urine Glucose - Dipstick NEGATIVE mg/dL Negative Urine Bilirubin - Dipstick NEGATIVE Negative Urine Ketone NEGATIVE mg/dL Negative Urine Specific [place] >=1.030 1.010-1.030 Urine Blood NEGATIVE Negative Urine PH 5.5 Low 6.5-7.5 Urine Protein - Dipstick NEGATIVE mg/dL Negative Urine Urobilinogen - Dipstick 0.2 E.U./dL 0.2-1.0 Urine Nitrite - Dipstick NEGATIVE Negative Urine Leuk Esterase NEGATIVE Negative CBC 12/26/2015 White Blood Count 9.6 K/uL 3.1-10.7 Red Blood Count 4.24 M/uL 3.90-5.40 Hemoglobin 12.6 gm/dL 11.6-15.8 Hematocrit 37.0 % 36.0-46.1 Mean Cell Volume 87.3 fl 80.9-99.0 Mean Corpuscular HGB 29.7 pg 25.9-32.7 Mean Corpuscular HGB Conc 34.1 g/dL 30.8-34.3 Platelet Count 418 K/uL High 155-360 Red Cell Distri Width %CV 12.5 % 11.7-14.4 Mean Platelet Volume 9.9 fL 8.9-12.4 Laboratory test finding 12/26/2015 Lipase 174 U/L 73-393 HCG,Serum (Qualitative) NEGATIVE (Negative) Comprehensive Metabolic Panel 12/26/2015 Glucose 92 mg/dL 74-106 BUN 16 mg/dL 7-18 Creatinine 0.8 mg/dL 0.6-1.3 Glom Filtration Rate, Estimate >60 mL/min >60 If >60 mL/min >60 18 BUN/Creat 20.0 ratio Sodium 139 mmol/L 136-145 Potassium 3.7 mmol/L 3.5-5.1 Chloride 104 mmol/L 98-107 Carbon Dioxide 28 mmol/L 21-32 Anion Gap 7 mEq/L Low 8-16 Calcium 8.6 mg/dL 8.5-10.1 Total Protein 7.8 g/dL 6.4-8.2 Albumin 3.8 g/dL 3.4-5.0 Globulin 4.0 g/dL 1.9-4.3 Alb/Glob 1.0 ratio Bilirubin,Total 0.5 mg/dL 0.2-1.0 Sgot/Ast 25 U/L 15-37 SGPT/Alt 38 U/L 12-78 Alkaline Phosphatase 95 U/L 45-117 Laboratory test finding 12/26/2015 Carbon Dioxide Level 28 21-32 RDW Coefficient of Variation 12.5 11.7-14.4 Sodium Level 139 136-145 Urine Bilirubin Negative Negative Urine Glucose (Ua) Negative Negative Urine Ketones Negative Negative Urine Leukocyte Esterase Negative Negative Urine Nitrite Negative Negative Urine Protein Negative Negative Urine Urobilinogen 0.2 0.2-1.0 Comprehensive Metabolic Panel 12/12/2015 Glucose 99 mg/dL 74-106 BUN 21 mg/dL High 7-18 Creatinine 0.7 mg/dL 0.6-1.3 Glom Filtration Rate, Estimate >60 mL/min >60 If >60 mL/min >60 19 BUN/Creat 30.0 ratio Sodium 139 mmol/L 136-145 Potassium 3.9 mmol/L 3.5-5.1 Chloride 104 mmol/L 98-107 Carbon Dioxide 27 mmol/L 21-32 Anion Gap 8 mEq/L 8-16 Calcium 8.4 mg/dL Low 8.5-10.1 Total Protein 8.0 g/dL 6.4-8.2 Albumin 3.7 g/dL 3.4-5.0 Globulin 4.3 g/dL 1.9-4.3 Alb/Glob 0.9 ratio Bilirubin,Total 0.4 mg/dL 0.2-1.0 Sgot/Ast 19 U/L 15-37 SGPT/Alt 37 U/L 12-78 Alkaline Phosphatase 88 U/L 45-117 Laboratory test finding 12/12/2015 Lipase 139 U/L 73-393 CBC W/Automated Diff 12/12/2015 White Blood Count 11.2 K/uL High 3.1-10.7 Red Blood Count 4.44 M/uL 3.90-5.40 Hemoglobin 13.3 gm/dL 11.6-15.8 Hematocrit 38.9 % 36.0-46.1 Mean Cell Volume 87.6 fl 80.9-99.0 Mean Corpuscular HGB 30.0 pg 25.9-32.7 Mean Corpuscular HGB Conc 34.2 g/dL 30.8-34.3 Platelet Count 392 K/uL High 155-360 Red Cell Distri Width SD 40.0 fl 3-47 Red Cell Distri Width %CV 12.9 % 11.7-14.4 Mean Platelet Volume 10.0 fL 8.9-12.4 Neut% 61.2 % 40.4-72.8 Lymph % 31.0 % 17.0-46.1 [place] % 5.9 % 4.3-13.2 Eo% 1.5 % 0.0-6.6 Bas% 0.4 % 0.0-1.1 Neut# 6.85 K/uL 1.8-7.0 Lymph # 3.47 K/uL 1.8-7.0 [place] # 0.66 K/uL 0.3-0.9 Eos # 0.17 K/uL 0.0-0.5 Baso # 0.04 K/uL 0.0-0.1 Laboratory test finding 12/12/2015 Slide Review . 20 Laboratory test finding 12/12/2015 Basophils # (Auto) 0.04 0.0-0.1 Basophils (%) (Auto) 0.4 0.0-1.1 Eosinophils # (Auto) 0.17 0.0-0.5 Eosinophils (%) (Auto) 1.5 0.0-6.6 Lymphocytes # (Auto) 3.47 1.8-7.0 Lymphocytes (%) (Auto) 31.0 17.0-46.1 Manual Slide Review (Hematology) . Monocytes # (Auto) 0.66 0.3-0.9 Monocytes (%) (Auto) 5.9 4.3-13.2 Neutrophils # (Auto) 6.85 1.8-7.0 Neutrophils (%) (Auto) 61.2 40.4-72.8 RDW Coefficient of Variation 12.9 11.7-14.4 Red Cell Distribution Width 40.0 3-47 Sodium Level 139 136-145 Carbon Dioxide Level 27 21-32 Laboratory test finding 12/12/2015 Urine HCG (Qualitative) NEGATIVE Negative 21 Urinalysis With 12/12/2015 Urine Color YELLOW Yellow Microscopic Urine Clarity CLEAR Clear Urine Glucose - Dipstick NEGATIVE mg/dL Negative Urine Bilirubin - Dipstick NEGATIVE Negative Urine Ketone NEGATIVE mg/dL Negative Urine Specific [place] >=1.030 1.010-1.030 Urine Blood LARGE High Negative Urine PH 5.5 Low 6.5-7.5 Urine Protein - Dipstick NEGATIVE mg/dL Negative Urine Urobilinogen - Dipstick 0.2 E.U./dL 0.2-1.0 Urine Nitrite - Dipstick NEGATIVE Negative Urine Leuk Esterase NEGATIVE Negative Urine RBC 0-2 rbc/hpf 0-2 Urine WBC 0-2 wbc/hpf 0-7 Urine Epithelial Cells FEW NONESEEN/lpf Urine Bacteria VERY FEW NONESEEN Urine Mucus VERY FEW NONESEEN Urine Screen 12/12/2015 Ua RFX Micro + Culture II See Note 22 Laboratory test finding 12/12/2015 Urine Bilirubin Negative Negative Urine Glucose (Ua) Negative Negative Urine Ketones Negative Negative Urine Leukocyte Esterase Negative Negative Urine Nitrite Negative Negative Urine Protein Negative Negative Urine Urobilinogen 0.2 0.2-1.0 CBC 12/08/2015 White Blood Count 8.7 K/uL 3.1-10.7 Red Blood Count 4.57 M/uL 3.90-5.40 Hemoglobin 13.7 gm/dL 11.6-15.8 Hematocrit 39.8 % 36.0-46.1 Mean Cell Volume 87.1 fl 80.9-99.0 Mean Corpuscular HGB 30.0 pg 25.9-32.7 Mean Corpuscular HGB Conc 34.4 g/dL High 30.8-34.3 Platelet Count 352 K/uL 155-360 Red Cell Distri Width %CV 12.9 % 11.7-14.4 Mean Platelet Volume 10.0 fL 8.9-12.4 Urine Screen 12/08/2015 Urine Color YELLOW Yellow Urine Clarity CLEAR Clear Urine Glucose - Dipstick NEGATIVE mg/dL Negative Urine Bilirubin - Dipstick NEGATIVE Negative Urine Ketone NEGATIVE mg/dL Negative Urine Specific [place] 1.020 1.010-1.030 Urine Blood NEGATIVE Negative Urine PH 5.5 Low 6.5-7.5 Urine Protein - Dipstick NEGATIVE mg/dL Negative Urine Urobilinogen - Dipstick 0.2 E.U./dL 0.2-1.0 Urine Nitrite - Dipstick NEGATIVE Negative Urine Leuk Esterase NEGATIVE Negative Laboratory test finding 12/08/2015 RDW Coefficient of Variation 12.9 11.7 -14.4 Urine Bilirubin Negative Negative Urine Glucose (Ua) Negative Negative Urine Ketones Negative Negative Urine Leukocyte Esterase Negative Negative Urine Nitrite Negative Negative Urine Protein Negative Negative Urine Urobilinogen 0.2 0.2-1.0 Urine Screen 12/04/2015 Urine Color YELLOW Yellow Urine Clarity SL CLOUDY Clear Urine Glucose - Dipstick NEGATIVE mg/dL Negative Urine Bilirubin - Dipstick NEGATIVE Negative Urine Ketone NEGATIVE mg/dL Negative Urine Specific [place] 1.025 1.010-1.030 Urine Blood NEGATIVE Negative Urine PH 5.5 Low 6.5-7.5 Urine Protein - Dipstick NEGATIVE mg/dL Negative Urine Urobilinogen - Dipstick 0.2 E.U./dL 0.2-1.0 Urine Nitrite - Dipstick NEGATIVE Negative Urine Leuk Esterase NEGATIVE Negative Laboratory test finding 12/04/2015 Urine Bilirubin Negative Negative Urine Glucose (Ua) Negative Negative Urine Ketones Negative Negative Urine Leukocyte Esterase Negative Negative Urine Nitrite Negative Negative Urine Protein Negative Negative Urine Urobilinogen 0.2 0.2-1.0 Laboratory test finding 12/04/2015 Basophils # (Auto) 0.06 0.0-0.1 Basophils (%) (Auto) 0.7 0.0-1.1 Eosinophils # (Auto) 0.13 0.0-0.5 Eosinophils (%) (Auto) 1.5 0.0-6.6 Lymphocytes # (Auto) 2.88 1.8-7.0 Lymphocytes (%) (Auto) 33.0 17.0-46.1 Monocytes # (Auto) 0.48 0.3-0.9 Monocytes (%) (Auto) 5.5 4.3-13.2 Neutrophils # (Auto) 5.19 1.8-7.0 Neutrophils (%) (Auto) 59.3 40.4-72.8 RDW Coefficient of Variation 12.8 11.7-14.4 Red Cell Distribution Width 40.0 3-47 Sodium Level 139 136-145 Carbon Dioxide Level 26 21-32 Laboratory test finding 12/04/2015 Lipase 143 U/L 73-393 HCG,Serum (Qualitative) NEGATIVE (Negative) Comprehensive Metabolic Panel 12/04/2015 Glucose 99 mg/dL 74-106 BUN 14 mg/dL 7-18 Creatinine 0.7 mg/dL 0.6-1.3 Glom Filtration Rate, Estimate >60 mL/min >60 If >60 mL/min >60 23 BUN/Creat 20.0 ratio Sodium 139 mmol/L 136-145 Potassium 3.5 mmol/L 3.5-5.1 Chloride 104 mmol/L 98-107 Carbon Dioxide 26 mmol/L 21-32 Anion Gap 9 mEq/L 8-16 Calcium 8.8 mg/dL 8.5-10.1 Total Protein 8.5 g/dL High 6.4-8.2 Albumin 4.1 g/dL 3.4-5.0 Globulin 4.4 g/dL High 1.9-4.3 Alb/Glob 0.9 ratio Bilirubin,Total 0.7 mg/dL 0.2-1.0 Sgot/Ast 21 U/L 15-37 SGPT/Alt 36 U/L 12-78 Alkaline Phosphatase 97 U/L 45-117 CBC W/Automated Diff 12/04/2015 White Blood Count 8.7 K/uL 3.1-10.7 Red Blood Count 4.36 M/uL 3.90-5.40 Hemoglobin 13.1 gm/dL 11.6-15.8 Hematocrit 38.1 % 36.0-46.1 Mean Cell Volume 87.4 fl 80.9-99.0 Mean Corpuscular HGB 30.0 pg 25.9-32.7 Mean Corpuscular HGB Conc 34.4 g/dL High 30.8-34.3 Platelet Count 367 K/uL High 155-360 Red Cell Distri Width SD 40.0 fl 3-47 Red Cell Distri Width %CV 12.8 % 11.7-14.4 Mean Platelet Volume 10.4 fL 8.9-12.4 Neut% 59.3 % 40.4-72.8 Lymph % 33.0 % 17.0-46.1 [place] % 5.5 % 4.3-13.2 Eo% 1.5 % 0.0-6.6 Bas% 0.7 % 0.0-1.1 Neut# 5.19 K/uL 1.8-7.0 Lymph # 2.88 K/uL 1.8-7.0 [place] # 0.48 K/uL 0.3-0.9 Eos # 0.13 K/uL 0.0-0.5 Baso # 0.06 K/uL 0.0-0.1 Laboratory test finding 11/23/2015 Thyroid Stim Hormone 0.80 uIU/mL 0.36- 3.74 Laboratory test finding 10/31/2015 Basophils # (Auto) 0.05 0.0-0.1 Basophils (%) (Auto) 0.5 0.0-1.1 Eosinophils # (Auto) 0.14 0.0-0.5 Eosinophils (%) (Auto) 1.5 0.0-6.6 Lymphocytes # (Auto) 3.57 1.8-7.0 Lymphocytes (%) (Auto) 38.3 17.0-46.1 Monocytes # (Auto) 0.54 0.3-0.9 Monocytes (%) (Auto) 5.8 4.3-13.2 Neutrophils # (Auto) 5.01 1.8-7.0 Neutrophils (%) (Auto) 53.9 40.4-72.8 RDW Coefficient of Variation 12.8 11.7-14.4 Red Cell Distribution Width 38.8 3-47 Sodium Level 141 136-145 Carbon Dioxide Level 23 21-32 Laboratory test finding 10/31/2015 HCG,Serum (Qualitative) NEGATIVE ( Negative) Comprehensive Metabolic 10/31/2015 Glucose 81 mg/dL 74-106 Panel BUN 16 mg/dL 7-18 Creatinine 0.8 mg/dL 0.6-1.3 Glom Filtration Rate, Estimate >60 mL/min >60 If >60 mL/min >60 24 BUN/Creat 20.0 ratio Sodium 141 mmol/L 136-145 Potassium 3.7 mmol/L 3.5-5.1 Chloride 109 mmol/L High 98-107 Carbon Dioxide 23 mmol/L 21-32 Anion Gap 9 mEq/L 8-16 Calcium 7.9 mg/dL Low 8.5-10.1 Total Protein 7.9 g/dL 6.4-8.2 Albumin 3.6 g/dL 3.4-5.0 Globulin 4.3 g/dL 1.9-4.3 Alb/Glob 0.8 ratio Bilirubin,Total 0.5 mg/dL 0.2-1.0 Sgot/Ast 15 U/L 15-37 SGPT/Alt 26 U/L 12-78 Alkaline Phosphatase 87 U/L 45-117 CBC W/Automated Diff 10/31/2015 White Blood Count 9.3 K/uL 3.1-10.7 Red Blood Count 4.35 M/uL 3.90-5.40 Hemoglobin 13.2 gm/dL 11.6-15.8 Hematocrit 37.5 % 36.0-46.1 Mean Cell Volume 86.2 fl 80.9-99.0 Mean Corpuscular HGB 30.3 pg 25.9-32.7 Mean Corpuscular HGB Conc 35.2 g/dL High 30.8-34.3 Platelet Count 387 K/uL High 155-360 Red Cell Distri Width SD 38.8 fl 3-47 Red Cell Distri Width %CV 12.8 % 11.7-14.4 Mean Platelet Volume 10.0 fL 8.9-12.4 Neut% 53.9 % 40.4-72.8 Lymph % 38.3 % 17.0-46.1 [place] % 5.8 % 4.3-13.2 Eo% 1.5 % 0.0-6.6 Bas% 0.5 % 0.0-1.1 Neut# 5.01 K/uL 1.8-7.0 Lymph # 3.57 K/uL 1.8-7.0 [place] # 0.54 K/uL 0.3-0.9 Eos # 0.14 K/uL 0.0-0.5 Baso # 0.05 K/uL 0.0-0.1 Laboratory test finding 09/04/2015 Urine HCG (Qualitative) NEGATIVE Negative 25 Urinalysis With 09/04/2015 Urine Color YELLOW Yellow Microscopic Urine Clarity CLEAR Clear Urine Glucose - Dipstick NEGATIVE mg/dL Negative Urine Bilirubin - Dipstick NEGATIVE Negative Urine Ketone TRACE mg/dL High Negative Urine Specific [place] 1.025 1.010-1.030 Urine Blood LARGE High Negative Urine PH 6.0 Low 6.5-7.5 Urine Protein - Dipstick NEGATIVE mg/dL Negative Urine Urobilinogen - Dipstick 0.2 E.U./dL 0.2-1.0 Urine Nitrite - Dipstick NEGATIVE Negative Urine Leuk Esterase NEGATIVE Negative Urine RBC 20-30 rbc/hpf High 0-2 Urine WBC 0-2 wbc/hpf 0-7 Urine Epithelial Cells FEW NONESEEN/lpf Urine Bacteria FEW NONESEEN Urine Mucus SMALL NONESEEN Laboratory test finding 09/04/2015 Ua RFX Micro + Culture II See Note 26 Laboratory test finding 09/04/2015 Urine Bilirubin Negative Negative Urine Glucose (Ua) Negative Negative Urine Ketones Trace High Negative Urine Leukocyte Esterase Negative Negative Urine Nitrite Negative Negative Urine Protein Negative Negative Urine Urobilinogen 0.2 0.2-1.0 Comprehensive Metabolic Panel 09/04/2015 Glucose 86 mg/dL 74-106 BUN 19 mg/dL High 7-18 Creatinine 0.6 mg/dL 0.6-1.3 Glom Filtration Rate, Estimate >60 mL/min >60 If >60 mL/min >60 27 BUN/Creat 31.6 ratio Sodium 141 mmol/L 136-145 Potassium 3.9 mmol/L 3.5-5.1 Chloride 106 mmol/L 98-107 Carbon Dioxide 25 mmol/L 21-32 Anion Gap 10 mEq/L 8-16 Calcium 8.9 mg/dL 8.5-10.1 Total Protein 8.0 g/dL 6.4-8.2 Albumin 4.2 g/dL 3.4-5.0 Globulin 3.8 g/dL 1.9-4.3 Alb/Glob 1.1 ratio Bilirubin,Total 0.6 mg/dL 0.2-1.0 Sgot/Ast 35 U/L 15-37 SGPT/Alt 43 U/L 12-78 Alkaline Phosphatase 95 U/L 45-117 CBS W/Automated Diff 09/04/2015 White Blood Count 9.9 K/uL 3.1-10.7 Red Blood Count 4.34 M/uL 3.90-5.40 Hemoglobin 12.8 gm/dL 11.6-15.8 Hematocrit 37.4 % 36.0-46.1 Mean Cell Volume 86.2 fl 80.9-99.0 Mean Corpuscular HGB 29.5 pg 25.9-32.7 Mean Corpuscular HGB Conc 34.2 g/dL 30.8-34.3 Platelet Count 410 K/uL High 155-360 Red Cell Distri Width SD 39.5 fl 3-47 Red Cell Distri Width %CV 12.9 % 11.7-14.4 Mean Platelet Volume 10.1 fL 8.9-12.4 Neut% 60.8 % 40.4-72.8 Lymph % 31.9 % 17.0-46.1 [place] % 5.5 % 4.3-13.2 Eo% 1.4 % 0.0-6.6 Bas% 0.4 % 0.0-1.1 Neut# 6.03 K/uL 1.0-7.0 Lymph # 3.17 K/uL 1.8-7.0 [place] # 0.55 K/uL 0.3-0.9 Eos # 0.14 K/uL 0.0-0.5 Baso # 0.04 K/uL 0.0-0.1 Laboratory test finding 09/04/2015 Basophils # (Auto) 0.04 0.0-0.1 Basophils (%) (Auto) 0.4 0.0-1.1 Eosinophils # (Auto) 0.14 0.0-0.5 Eosinophils (%) (Auto) 1.4 0.0-6.6 Lymphocytes # (Auto) 3.17 1.8-7.0 Lymphocytes (%) (Auto) 31.9 17.0-46.1 Monocytes # (Auto) 0.55 0.3-0.9 Monocytes (%) (Auto) 5.5 4.3-13.2 Neutrophils # (Auto) 6.03 1.0-7.0 Neutrophils (%) (Auto) 60.8 40.4-72.8 RDW Coefficient of Variation 12.9 11.7-14.4 Red Cell Distribution Width 39.5 3-47 Sodium Level 141 136-145 Comprehensive Metabolic Panel 05/30/2015 Glucose 97 mg/dL 74-106 BUN 10 mg/dL 7-18 Creatinine 0.8 mg/dL 0.6-1.3 Glom Filtration Rate, Estimate >60 mL/min >60 If >60 mL/min >60 28 BUN/Creat 12.5 ratio Sodium 138 mmol/L 136-145 Potassium 3.9 mmol/L 3.5-5.1 Chloride 102 mmol/L 98-107 Carbon Dioxide 27 mmol/L 21-32 Anion Gap 9 mEq/L 8-16 Calcium 9.0 mg/dL 8.5-10.1 Total Protein 8.2 g/dL 6.4-8.2 Albumin 3.7 g/dL 3.4-5.0 Globulin 4.5 g/dL High 1.9-4.3 Alb/Glob 0.8 ratio Bilirubin,Total 0.9 mg/dL 0.2-1.0 Sgot/Ast 27 U/L 15-37 SGPT/Alt 49 U/L 12-78 Alkaline Phosphatase 117 U/L 45-117 Laboratory test finding 05/30/2015 Lipase 133 U/L 73-393 CBC W/Automated Diff 05/30/2015 White Blood Count 12.6 K/uL High 3.1-10.7 Red Blood Count 4.46 M/uL 3.90-5.40 Hemoglobin 13.2 gm/dL 11.6-15.8 Hematocrit 38.7 % 36.0-46.1 Mean Cell Volume 86.8 fl 80.9-99.0 Mean Corpuscular HGB 29.6 pg 25.9-32.7 Mean Corpuscular HGB Conc 34.1 g/dL 30.8-34.3 Platelet Count 333 K/uL 155-360 Red Cell Distri Width SD 40.2 fl 3-47 Red Cell Distri Width %CV 13.2 % 11.7-14.4 Mean Platelet Volume 10.0 fL 8.9-12.4 Neut% 75.4 % High 40.4-72.8 Lymph % 17.7 % 17.0-46.1 [place] % 6.0 % 4.3-13.2 Eo% 0.7 % 0.0-6.6 Bas% 0.2 % 0.0-1.1 Neut# 9.49 K/uL High 1.0-7.0 Lymph # 2.23 K/uL 1.8-7.0 [place] # 0.76 K/uL 0.3-0.9 Eos # 0.09 K/uL 0.0-0.5 Baso # 0.03 K/uL 0.0-0.1 Chlamydia/GC [place], Urine 05/30/2015 Chlamydia Trachomatis,Ur Negative Negative -[place] Neisseria Gonorrhoeae,Ur -[place] Negative Negative Urine note: See Note 29 Urine HCG (Qualitative) 05/30/2015 Urine HCG (Qualitative) NEGATIVE Negative 30 Urine Screen 05/30/2015 Urine Color YELLOW Yellow Urine Clarity CLEAR Clear Urine Glucose - Dipstick NEGATIVE mg/dL Negative Urine Bilirubin - Dipstick NEGATIVE Negative Urine Ketone NEGATIVE mg/dL Negative Urine Specific [place] 1.025 1.010-1.030 Urine Blood NEGATIVE Negative Urine PH 5.5 Low 6.5-7.5 Urine Protein - Dipstick NEGATIVE mg/dL Negative Urine Urobilinogen - Dipstick 0.2 E.U./dL 0.2-1.0 Urine Nitrite - Dipstick NEGATIVE Negative Urine Leuk Esterase NEGATIVE Negative Laboratory test finding 05/30/2015 Basophils # (Auto) 0.03 0.0-0.1 Basophils (%) (Auto) 0.2 0.0-1.1 Eosinophils # (Auto) 0.09 0.0-0.5 Eosinophils (%) (Auto) 0.7 0.0-6.6 Lymphocytes # (Auto) 2.23 1.8-7.0 Lymphocytes (%) (Auto) 17.7 17.0-46.1 Monocytes # (Auto) 0.76 0.3-0.9 Monocytes (%) (Auto) 6.0 4.3-13.2 Neutrophils # (Auto) 9.49 High 1.0-7.0 Neutrophils (%) (Auto) 75.4 High 40.4-72.8 RDW Coefficient of Variation 13.2 11.7-14.4 Red Cell Distribution Width 40.2 3-47 Reference Lab Test Comments See Note 31 Sodium Level 138 136-145 Urine Bilirubin Negative Negative Urine Glucose (Ua) Negative Negative Urine Ketones Negative Negative Urine Leukocyte Esterase Negative Negative Urine Nitrite Negative Negative Urine Protein Negative Negative Urine Urobilinogen 0.2 0.2-1.0 Laboratory test finding 04/06/2015 Sedimentation Rate 36 mm/hr High 0-20 C-Reactive Protein,Quant 5.9 mg/L <3.0 CBC W/Automated Diff 04/06/2015 White Blood Count 7.5 K/uL 3.1-10.7 Red Blood Count 4.63 M/uL 3.90-5.40 Hemoglobin 13.8 gm/dL 11.6-15.8 Hematocrit 40.0 % 36.0-46.1 Mean Cell Volume 86.4 fl 80.9-99.0 Mean Corpuscular HGB 29.8 pg 25.9-32.7 Mean Corpuscular HGB Conc 34.5 g/dL High 30.8-34.3 Platelet Count 375 K/uL High 155-360 Red Cell Distri Width SD 39.9 fl 3-47 Red Cell Distri Width %CV 13.0 % 11.7-14.4 Mean Platelet Volume 10.1 fL 8.9-12.4 Neut% 59.0 % 40.4-72.8 Lymph % 32.0 % 17.0-46.1 [place] % 6.7 % 4.3-13.2 Eo% 1.5 % 0.0-6.6 Bas% 0.8 % 0.0-1.1 Neut# 4.40 K/uL 1.0-7.0 Lymph # 2.39 K/uL 1.8-7.0 [place] # 0.50 K/uL 0.3-0.9 Eos # 0.11 K/uL 0.0-0.5 Baso # 0.06 K/uL 0.0-0.1 Influenza A & B Antigen 10/24/2014 Influenza A Antigen Negative (Negative ) Influenza B Antigen Negative (Negative) 32 H Pylori,Igm,Igg,Iga 04/26/2014 Helicobacter Pylori, 1.1 units 0.0-8.9 33 Antibodys Iga Abs Helicobacter Pylori, Igg <0.9 U/mL 0.0-0.8 34 Helicobacter Pylori, Igm Abs 1.6 units 0.0-8.9 35 Comprehensive Metabolic Panel 04/26/2014 Alb/Glob 0.8 ratio Albumin 3.8 g/dL 3.5-5.0 Alkaline Phosphatase 106 U/L 50-136 Anion Gap 11 mEq/L 8-16 BUN 13 mg/dL 5-23 BUN/Creat 16.2 ratio Bilirubin,Total 0.4 mg/dL 0.2-1.2 Calcium 8.8 mg/dL 8.5-10.1 Carbon Dioxide 23 mEq/L 18-29 Chloride 109 mmol/L High 98-107 Creatinine 0.8 mg/dL 0.5-1.4 Globulin 4.5 g/dL High 1.9-4.3 Glom Filtration Rate, Estimate >60 mL/min >60 Glucose 84 mg/dL 76-115 If >60 mL/min >60 36 Potassium 3.7 mmol/L 3.5-5.1 SGPT/Alt 35 U/L 30-65 Sgot/Ast 20 U/L 16-40 Sodium 139 mmol/L 136-145 Total Protein 8.3 g/dL High 6.3-8.0 Laboratory test finding 04/26/2014 Urine Culture See Note 37 Affirm 04/26/2014 Lilia Negative 38 Gardnerella Negative Trichomonas Negative Throat-Beta Strept 04/02/2014 Throat Beta Strep (See Note) 39 Culture Laboratory test finding 03/24/2014 Free T4 1.07 ng/dL 0.71-1.85 Thyroid Stim Hormone 0.97 uIU/mL 0.49-4.67 Comprehensive Metabolic Panel 12/30/2013 Alb/Glob 1.0 ratio Albumin 4.2 g/dL 3.5-5.0 Alkaline Phosphatase 99 U/L 50-136 Anion Gap 11 mEq/L 8-16 BUN 12 mg/dL 5-23 BUN/Creat 24.0 ratio Bilirubin,Total 0.7 mg/dL 0.2-1.2 Calcium 9.0 mg/dL 8.5-10.1 Carbon Dioxide 27 mEq/L 18-29 Chloride 104 mmol/L 98-107 Creatinine 0.5 mg/dL 0.5-1.4 Globulin 4.3 g/dL 1.9-4.3 Glom Filtration Rate, Estimate >60 mL/min >60 Glucose 94 mg/dL 76-115 If >60 mL/min >60 40 Potassium 4.2 mmol/L 3.5-5.1 SGPT/Alt 28 U/L Low 30-65 Sgot/Ast 28 U/L 16-40 Sodium 138 mmol/L 136-145 Total Protein 8.5 g/dL High 6.3-8.0 Laboratory test finding 12/30/2013 Bas% 0.5 % 0.0-1.1 Baso # 0.06 K/uL 0.0-0.1 Eo% 1.4 % 0.0-6.6 Eos # 0.16 K/uL 0.0-0.5 Hematocrit 41.3 % 36.0-46.1 Hemoglobin 14.3 gm/dL 11.6-15.8 Lipase 137 U/L 28-380 41 Lymph # 3.14 K/uL 0.8-3.4 Lymph % 26.6 % 17.0-46.1 Mean Cell Volume 87.7 fl 80.9-99.0 Mean Corpuscular HGB 30.4 pg 25.9-32.7 Mean Corpuscular HGB Conc 34.6 g/dL High 30.8-34.3 Mean Platelet Volume 10.0 fL 8.9-12.4 [place] # 0.69 K/uL 0.3-0.9 [place] % 5.8 % 4.3-13.2 Neut# 7.77 K/uL High 1.0-7.0 Neut% 65.7 % 40.4-72.8 Platelet Count 413 K/uL High 155-360 Red Blood Count 4.71 M/uL 3.90-5.40 Red Cell Distri Width %CV 13.0 % 11.7-14.4 Red Cell Distri Width SD 40.3 fl 3-47 White Blood Count 11.8 K/uL High 3.1-10.7 Urine Screen 12/30/2013 Urine Bilirubin - Dipstick Negative Negative Urine Blood Negative Negative Urine Clarity SL Cloudy Clear Urine Color Yellow Yellow Urine Glucose - Dipstick Negative mg/dL Negative Urine Ketone Negative mg/dL Negative Urine Leuk Esterase Negative Negative Urine Nitrite - Dipstick Negative Negative Urine PH 6.0 Low 6.5-7.5 Urine Protein - Dipstick Negative mg/dL Negative Urine Specific [place] >=1.030 1.010-1.030 Urine Urobilinogen - Dipstick 0.2 E.U./dL 0.2-1.0 Chlamydia/GC R[place], Urine 12/30/2013 Chlamydia Trachomatis,Ur Negative Negative -[place] Neisseria Gonorrhoeae,Ur -[place] Negative Negative Urine note: See Note 42 1 Please Note: A POSITIVE result for influenza A and/or B antigen does not rule out a co-infection with other pathogens or identify any specific influenza A virus subtype. A NEGATIVE result for influenza A and/or B antigen does not preclude influenza virus infection and should not be the sole basis for treatment or other management decisions, since the antigen present in the specimen may be below the detection limit of the test. A NEGATIVE result is PRESUMPTIVE and it is recommended these results be confirmed by virus culture or an FDA-cleared influenza A and B molecular assay. Method: BD Veritor Chromatographic immunoassay 2 J11.2 3 METHOD: [place] II Rapid Immunochromatographic assay [facility] 4 Instrument flagged sample for slide review. Less than 10% Bands seen, no other immature WBC's seen. RBC morphology essentially normal. Platelet estimate=NORMAL 5 J02.9 6 NORMAL THROAT RYDER 7 R35.0 8 URINE, CLEAN CATCH 9 NO GROWTH: FINAL REPORT 10 SEVERE RT ABDOMINAL PAIN AND VOMITING 11 URINE, CLEAN CATCH 12 Note: Persistent reduction for 3 months or more in an eGFR <60 mL/min/1.73 m2 defines CKD. Patients with eGFR values >/=60 mL/min/1.73 m2 may also have CKD if evidence of persistent proteinuria is present. The original MDRD equation for estimated GFR is not valid for patients less than 18 years of age. Additional information may be found at [email or web address]. 13 Method: Quidel QuickVue One-Step Immunoassay 14 [employer] Coach: [id number] DONNELL BURR 15 A09 16 NO GROWTH: FINAL REPORT 17 NO GROWTH: FINAL REPORT 18 Note: Persistent reduction for 3 months or more in an eGFR <60 mL/min/1.73 m2 defines CKD. Patients with eGFR values >/=60 mL/min/1.73 m2 may also have CKD if evidence of persistent proteinuria is present. The original MDRD equation for estimated GFR is not valid for patients less than 18 years of age. Additional information may be found at [email or web address]. 19 Note: Persistent reduction for 3 months or more in an eGFR <60 mL/min/1.73 m2 defines CKD. Patients with eGFR values >/=60 mL/min/1.73 m2 may also have CKD if evidence of persistent proteinuria is present. The original MDRD equation for estimated GFR is not valid for patients less than 18 years of age. Additional information may be found at [email or web address]. 20 Instrument flagged sample for slide review. Less than 10% Bands seen, no other immature WBC's seen. RBC morphology essentially normal. Platelet estimate=NORMAL 21 FIRST MORNING SPECIMENS GENERALLY CONTAIN THE HIGHEST CONCENTRATION OF HCG AND ARE RECOMMENDED FOR EARLY DETECTION OF . 22 12/12/15 LAB.TOW Deleted by [employer] 23 Note: Persistent reduction for 3 months or more in an eGFR <60 mL/min/1.73 m2 defines CKD. Patients with eGFR values >/=60 mL/min/1.73 m2 may also have CKD if evidence of persistent proteinuria is present. The original MDRD equation for estimated GFR is not valid for patients less than 18 years of age. Additional information may be found at [email or web address]. 24 Note: Persistent reduction for 3 months or more in an eGFR <60 mL/min/1.73 m2 defines CKD. Patients with eGFR values >/=60 mL/min/1.73 m2 may also have CKD if evidence of persistent proteinuria is present. The original MDRD equation for estimated GFR is not valid for patients less than 18 years of age. Additional information may be found at [email or web address]. 25 FIRST MORNING SPECIMENS GENERALLY CONTAIN THE HIGHEST CONCENTRATION OF HCG AND ARE RECOMMENDED FOR EARLY DETECTION OF . 26 09/04/15 LAB.DWM Deleted by Reflex Group [facility] 27 Note: Persistent reduction for 3 months or more in an eGFR <60 mL/min/1.73 m2 defines CKD. Patients with eGFR values >/=60 mL/min/1.73 m2 may also have CKD if evidence of persistent proteinuria is present. The original MDRD equation for estimated GFR is not valid for patients less than 18 years of age. Additional information may be found at [email or web address]. 28 Note: Persistent reduction for 3 months or more in an eGFR <60 mL/min/1.73 m2 defines CKD. Patients with eGFR values >/=60 mL/min/1.73 m2 may also have CKD if evidence of persistent proteinuria is present. The original MDRD equation for estimated GFR is not valid for patients less than 18 years of age. Additional information may be found at [email or web address]. 29 Acceptable specimens for this test are male urethral swab, endocervical swab and liquid based pap specimens, vaginal swabs in APTIMA transports and first void urine. See online Directory of Services for test number for rectal and pharyngeal specimens. Performed at: [address] [id number] [employer]: Myesha Saab MD, Phone: [phone] 30 FIRST MORNING SPECIMENS GENERALLY CONTAIN THE HIGHEST CONCENTRATION OF HCG AND ARE RECOMMENDED FOR EARLY DETECTION OF . 31 Acceptable specimens for this test are male urethral swab, endocervical swab and liquid based pap specimens, vaginal swabs in Aptima transports and first void urine. See online Directory of Services for test number for rectal and pharyngeal specimens. Performed at: [facility] [id number] [employer]: Myesha Saab MD, Phone: [phone] 32 Please Note: A POSITIVE result for influenza A and/or B antigen does not rule out a co-infection with other pathogens or identify any specific influenza A virus subtype. A NEGATIVE result for influenza A and/or B antigen does not preclude influenza virus infection and should not be the sole basis for treatment or other management decisions, since the antigen present in the specimen may be below the detection limit of the test. A NEGATIVE result is PRESUMPTIVE and it is recommended these results be confirmed by virus culture or an FDA-cleared influenza A and B molecular assay. 33 Negative <9.0 Equivocal 9.0 - 11.0 Positive >11.0 34 Negative <0.9 Indeterminate 0.9 - 1.0 Positive >1.0 35 Negative <9.0 Equivocal 9.0 - 11.0 Positive >11.0 This test was developed and its performance characteristics determined by [employer]. It has not been cleared or approved by the Food and Drug Administration. Results of this test are for investigational purposes only. The result should not be used as a diagnostic procedure without confirmation of the diagnosis by another medically diagnostic product or procedure. Performed at: [address] [id number] [employer]: Myesha Saab MD, Phone: [phone] 36 Note: Persistent reduction for 3 months or more in an eGFR <60 mL/min/1.73 m2 defines CKD. Patients with eGFR values >/=60 mL/min/1.73 m2 may also have CKD if evidence of persistent proteinuria is present. The original MDRD equation for estimated GFR is not valid for patients less than 18 years of age. Additional information may be found at [email or web address]. 37 COLONY COUNT ! 80,000-100,000 CFU/ml Organism 1 ! URETHRAL RYDER 38 [facility] [address] [place] [address], [address] [place] [address] AFFIRM VAGINOSIS / VAGINITIS REPORT Name: Lorraine Espinal : 1980 (Age: 33) Sex: F Location: [facility] Med. Rec. # Date Collected: 04/26/2014 Billing #: [id number] Date Received: 04/26/2014 Physician(s): ANUSHA SINGH Source of Specimen: Vaginal Results: Lilia species DNA Probe NEGATIVE Gardnerella vaginalis DNA Probe NEGATIVE Trichomonas vaginalis DNA Probe NEGATIVE Reported: 04/27/2014 Electronic Signature alphonso Romo [facility] ICD-9 Codes: 616.10 39 RUN DATE: 04/04/14 [facility] LAB LIVE PAGE 1 RUN TIME: [address] [place] [id number] Specimen Inquiry ----- Name: LORRAINE ESPINAL : [address]: Gigi Khan DO Acct: [id number] Unit: [id number] AGE: 33 Location: [facility] Re04/02/14 SEX: F Status: DEP ER ----- SPEC: [id number] NERY: 04/02/14-0858 [facility] [address]: Gigi Khan DO REQ: [id number] RECD: 04/02/14-1242 STATUS: TRUMAN DOMINGUEZ DR: [place] Jie KATZ _ SOURCE: THROAT SPDESC: ORDERED: Throat Beta Str ----- Procedure Result Verified Site ----- Throat Beta Strep Culture Final 04/04/14-918 ML Negative For Group A Beta Streptococcus ----- END OF REPORT * ML=Testing performed at Main Lab DEPARTMENT OF PATHOLOGY, [address] [place] [address] Jim Alatorre M.D. Director [facility] # [id number] Note: Persistent reduction for 3 months or more in an eGFR <60 mL/min/1.73 m2 defines CKD. Patients with eGFR values >/=60 mL/min/1.73 m2 may also have CKD if evidence of persistent proteinuria is present. The original MDRD equation for estimated GFR is not valid for patients less than 18 years of age. Additional information may be found at www.[email or web address]. 41 SPECIMEN IS SLIGHTLY HEMOLYZED 42 Acceptable specimens for this test are male urethral swab, endocervical swab and liquid based pap specimens, vaginal swabs in APTIMA transports and first void urine. See online Directory of Services for test number for rectal and pharyngeal specimens. Performed at: RN - [facility] [address], [place], [place] [id number] [employer]: Myesha Saab MD, Phone: [phone] Procedures Date CPT Code Description Status 01/23/2017 16106 Theraputic Or Diagnostic Injection Completed 08/15/2016 46857 Theraputic Or Diagnostic Injection Completed 08/01/2016 60260 Theraputic Or Diagnostic Injection Completed Encounters Type Date Location Provider CPT E/M Dx Office Visit 04/10/2018 11:40a Primary Care Office Adarsh Leon M.D. 29620 R35.0 R30.0 Z79.899 Office Visit 12/29/2017 2:20p [place] [address] R30.0 B37.3 Office Visit 11/26/2017 9:00a Primary Care Office James Luthersteve, 75598 J11.1 Eileen R50.81 Office Visit 10/20/2017 2:30p Primary Care Office Jie Kaisering, 36900 M62.830 RPA G43.009 Office Visit 10/07/2017 9:00a Primary Care Office Jie Kaisering, 85090 J01.90 [facility] R05 Office Visit 09/01/2017 2:30p Primary Care Office Jie Kaisering, 88430 R05 RPA Office Visit 05/19/2017 2:00p Primary Care Office Jie Kaisering, 96829 J01.90 RPA Office Visit 04/03/2017 2:45p Primary Care Office Jie Kaisering, 14977 F43.23 RPA Office Visit 02/20/2017 10:00a Primary Care Office Jie Kaisering, 62110 J02.9 RPAC J06.9 Office Visit 01/23/2017 1:30p Primary Care Office Jie Kaisering, 26271 G43.009 RPAC Office Visit 11/18/2016 9:45a Primary Care Office Jie Kaisering, 79568 J01.90 RPA Office Visit 10/21/2016 2:00p Primary Care Office Jie Kaisering, 51547 A09 RPAC Office Visit 08/15/2016 10:15a Primary Care Office Jie Kaisering, 47142 G43.009 [facility] F43.23 Z23 Office Visit 08/01/2016 11:15a Primary Care Office Jie Midland, 23205 G43.009 RPAC F43.23 Office Visit 01/19/2016 9:45a Primary [facility] Kaisering, [facility] 83145 N80.9 R10.84 Office Visit 12/27/2015 1:45p Primary Care Office Jie [place], 46588 R10.84 [facility] A09 Office Visit 11/07/2015 1:00p Primary Care Office Jie Vays, [facility] 26186 Z23 R53.81 H81.10 Office Visit 10/18/2015 1:30p Primary Care Office Jie Vyas, 11915 G43.009 [facility] Office Visit 08/24/2015 10:15a Primary Care Office Jie Vyas, 22807 J01.90 [facility] Office Visit 05/19/2015 1:15p Primary Care Office Jie Vyas, 21173 380.10 [facility] 780.60 Office Visit 04/06/2015 9:45a Primary Care Office Jie Vyas, 49136 789.07 [facility] Office Visit 03/23/2015 1:15p Primary Care Office Jie Vyas, 21633 786.2 [facility] Plan of Care 05/08/2018 - Catarina Rob, MS, TELECOMMUNICATION OPERATOR-C, CN66.91 Otitis media, unspecified, right earComments:Otitis media with effusion, no infection. Patient advised to continue Atrovent BID. Counseled on theprognosis of OME. Patient to monitor and report if not resolving.J01.90 Acute sinusitis, unspecifiedComments:Complete antibiotic, steam inhalation, increase fluids, rest.R05 CoughComments:Increase fluids, Atrovent, continue Benzonatate 100 mg, as cough medication with codiene does not work as well. Monitor symptons and report worsening.
--- OUTSIDE RECORDS SUMMARY | 2018-05-17 08:23 | XMS REPORT ---
:1980 External Reference #:[id number] Author Organization [facility] 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 Jie Vyas [facility] Primary Care Physician Unavailable Payers Type Date Identification Numbers Payment Provider Subscriber Commercial Effective: Policy Number: [id number] [employer] Medicaid Lorraine Espinal 2015 PayID: [id number] [address] [place] [address] Problems Date Description Provider Status Onset: 09/01/2013 Endometriosis (clinical) Jie Vyas [facility] Active Onset: 01/04/2013 Depressive disorder Jie Vyas [facility] Active Onset: 09/24/2011 Plantar fascial fibromatosis Citlalli Dominique FNP Active Onset: 03/23/2015 Migraine Jie Vyas [facility] Active Onset: 09/04/2015 Steatosis of liver Jie Vyas [facility] Active Onset: 12/18/2017 Degenerative joint disease involving Jie Vyas [facility] Active multiple joints Note: knee Onset: 01/08/2018 Mixed hyperlipidemia Jie Vyas [facility] Active Onset: 01/08/2018 Vitamin D deficiency Jie Vyas [facility] Active Onset: 04/10/2018 Taking medication Adarsh Leon [...] follows no dietary restrictions 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 Catarina ulanate tablet [place], [place], Potassium every 12 HEALTH SUPPORT SPECIALIST-C, CNM hours Cheratussin ac 05/01 Active Syrup 100-10mg/ 236ml 5ml by Jennifer 5ML mouth MD Alejandrina every 4 hour as needed cough Atrovent 05/01 Active Solution 0.06% Use 2 J. Catarina /2018 sprays [place], MS, twice a HEALTH SUPPORT SPECIALIST-C, CNM day Ondansetron HCL 04/27 Active Tablets 8mg 20tabs Take one J11.2 tablet [place]agen, MS, every 8 HEALTH SUPPORT SPECIALIST-C, CNM hours as needed for nausea and vomiting Sumatriptan Active Tablets 100mg take 1/2 Saada, Succinate / - 1 Fahed tablet by mouth at onset of aura, may repeat in 2 hours Naproxen Active Tablets 500mg take one Saada, 0000 tablet Fahed by mouth twice a day with food as needed Phendimetrazine Active Tablets 35mg 1 tablet Reinoso, Tartrate twice MD Americo daily. Benzonatate Active Capsules 100mg Take One Unknown Capsule By Mouth Every 6 Hours as Needed For Cough Doxycycline 05/01 Hx Tablets 100mg 14tabs Take one . Catarina Monohydrate tablet [place]agen, MS, - two HEALTH SUPPORT SPECIALIST-C, CNM 05/01 times a day Levofloxacin 05/01 Hx Tablets 500mg 5tabs Take one J.90 Catarina tablet [place]ageran, MS, - every HEALTH SUPPORT SPECIALIST-C, CNM Levofloxacin 05/01 Hx Tablets 750mg 5tabs Take one J.90 Catarina tablet Gageran, MS, - every HEALTH SUPPORT SPECIALIST-C, CNM Pseudoephedrine 05/01 Hx Tablets 30mg 30tabs Take one . Catarina HCL every Darron, MS, - 4-6 HEALTH SUPPORT SPECIALIST-C, CNM 05/01 hours needed for congesti on Loratadine 05/01 Hx Tablets 10mg 1tabs Take one J01.90 Catarina tablet Darron, MS, - every HEALTH SUPPORT SPECIALIST-C, CNM 05/01 morning Fluticasone 05/01 Hx Suspension 50mcg/Act 31.6ml To use 1 J01.90 Catarina Propionate Nasal or 2 Darron, MS, [place] Allergy - sprays HEALTH SUPPORT SPECIALIST-C, CNM Relief 24- Hour 05/01 in nostril Atrovent HFA 05/01 Hx Aerosol 17mcg/Act 12.900g use 2 J01.90 Catarina m sprays [place]ron, MS, - in each HEALTH SUPPORT SPECIALIST-C, CNM 05/01 nostril twice a day Pyridium 04/10 Hx Tablets [...] James Phosphate mouth [place], - twice a M.D. 12/29 day for /2018 5 days Cyclobenzaprine 10/20 Hx Tablets 10mg 30tabs take 1 M62.830 Donato HCL edgar Foster M.D. - every 8 for muscle spasm as needed Cefuroxime 10/07 Hx Tablets 500mg 28tabs 1 tab by J01.90 Donato Axetil mouth Eileen Foster - twice a /2017 Dulera 10/07 Hx Aerosol 100-5mcg/ sample 2 puffs Act twice a Eileen Foster - day 04/10 Azithromycin 09/01 Hx Tablets 250mg 6tabs 2 tabs by varun Foster M.D. today, then one tab by mouth daily Benzonatate 09/01 Hx Capsules 200mg 30caps 1 cap by R0 varun Foster M.D. three times a day cough Omeprazole 05/20 Hx Capsules 20mg 30caps Take One DR Milagros Foster M.D. - By Mouth 04/10 Day No Active 05/19 Hx Unknown Medications /2016 - 05/19 Cephalexin 05/19 Hx Tablets 500mg 30tabs 1 tab J01.90 (or cap) Eileen Foster by mouth three times a day Fluoxetine HCL 04/03 Hx Capsules 40mg 30caps 1 by F43.23 varun Foster M.D. every day Cephalexin 02/20 Hx Tablets 500mg 30tabs 1 tab J02.9 (or cap) Eileen Foster - by mouth 04/03 times a day Magnesium-Oxide 02/10 Hx Tablets 400(241.3 90tabs 1 by mg) mg varun Foster M.D. every day Oxycodone HCL 01/23 Hx Tablets 10mg 30tabs 1 tab by Donato varun Foster M.D. - every 02/20- hours as needed migraine pain ::: Bactrim DS 11/22 Hx Tablets 800-160mg 20tabs 1 tab by Burt varun Foster M.D. - twice a Amoxicillin 11/18 Hx Tablets 875mg 14tabs 1 tab by Burt Dunn varun Foster M.D. - twice a Fluconazole 11/18 Hx Tablets 150mg 1tabs 1 tab by Burt varun Foster M.D. - today 01/23 Frovatriptan 08/23 Hx Tablets 2.5mg 18tabs 1 tab po G43.009 Pedro E. Succinate at start [place] DO - of Farfan, 11/18 repeat in 2 hrs, or at 4 hrs if necessar y Diclofenac 08/[address] 75mg 60tabs take one Pedro E. Sodium tablet Justin DO - by mouth 11/18 twice a day with food for pain Rizatriptan 08/15 Hx Tablets 10mg 14tabs 1 by G43.009 Pedro E. Benzoate mouth at [place] DO - start of 08/23 farfan/aura, February repeat in 2 hours Fluoxetine HCL 08/15 Hx Capsules 20mg 30caps Take One F43. Milagros Foster M.D. - By Mouth 04/03 Day Fluoxetine HCL 08/01 Hx Capsules 10mg 30caps 1 by F43. Pedro E. mouth Justin DO - every Hydroxyzine HCL [...] 500mg 21tabs 1 tab by A09 Pedro E. mouth Justin DO - three 01/03 times a day Ondansetron HCL 12/26 Hx Tablets 8mg 14tabs take 1 A09 Pedro Wiggins tablet Justin DO by mouth every 8 hours as needed for nausea Meclizine HCL 11/07 Hx Tablets 12.5mg 30tabs one-two H81.10 Pedro Wiggins tabs Justin DO - every 6 /16 hour by mouth as needed dizzines s Multivital-M 11/07 Hx Tablets 90tabs 1 by Pedro Wiggins mouth Justin DO every day Cephalexin 11/01 Hx Capsules 500mg 30caps 1 cap ( Pedro Wiggins /2015 or tab) Justin DO - by mouth 11/12 times a day Naprosyn 10/20 Hx Tablets 500mg 1 by Unknown mouth - twice a 11/07 day after meals Naproxen Kit 10/19 Hx Tablets 500mg 30tabs 2 Times A Day - prn 08/15 headache Note For Work 10/18 Hx Evaluate Noemy Wiggins d at [facility] - Primary 11/07 Care for acute migraine headache . Please excuse Ondansetron 10/18 Hx Tablets 8mg 30tabs 1 tab by G43.Chandan Wiggins Dispers mouth Justin DO - every 8 01/02 hours as needed nausea/m igraine Oxycodone HCL 10/18 Hx Capsules 5mg 30caps 1 cap by G43.Chandan Wiggins mouth Justin DO - every 4 10/21 hours needed migraine farfan ::: Referenc e #: [id number] Sumatriptan 10/18 Hx Tablets 100mg 9tabs one by G43.Chandan Wiggins Succinate mouth at [facility] - Onset of 08/15 headache , may repeat in 2 hours Diflucan 09/22 Hx Tablets 150mg 2tabs 1 tab by Pedro Wiggins mouth x Justin [facility] - 1 for 10/18 yeast vaginiti s Anexsia 09/04 Hx Tablets 5-325mg 15tabs Every 4 Hours as - Needed 10/18 prn Pain Ondansetron HCL 09/04 Hx Tablets 4mg 15tabs Every 8 Hours as - Needed 10/18 prn /2015 Nausea Cephalexin 08/24 Hx Capsules 500mg 30caps 1 cap ( J01.90 Pedro Wiggins /2014 or tab) Justin DO - by mouth 09/22 times a day Mucinex 08/24 Hx Tablets ER 600mg 30tabs take two J01.90 Pedro Wiggins 12HR by mouth Justin DO - twice a 10/18 day for congesti on Work Note 08/24 Hx Evaluate Pedro Wiggins /2014 d for [facility] - acute 09/22 illness today at Primary Care. Please excuse Fluticasone 08/24 Hx Suspension 50mcg/Act 16units [place] 2 J01.90 Pedro Wiggins Propionate Sprays Justin [facility] - In Each 05/19 Nostril Once Daily Neomycin/Polymyx 05/19 Hx Suspension 3.5-95921 7.500ml 3 drops 380.10 Pedro Wiggins in/Hydrocortison /2014 -1 to (L) Justin [facility] e - ear four 08/24 times a day Cefuroxime 05/19 Hx Tablets 500mg 20tabs 1 tab by 380.10 Pedro Wiggins Axetil /2014 mouth Justin [facility] - twice a Acetaminophen-Co 05/19 Hx Tablets 300-30mg 30tabs 1-2 by 380.10 Pedro Wiggins deine #3 mouth Justin [facility] - every 4 08/24 hours needed ... Nabumetone 04/06 Hx Tablets 750mg 30tabs take 2 789.07 Pedro Wiggins tablets Justin [facility] - by mouth 08/24 evening with food for abdl pain Azithromycin 03/23 Hx Tablets 250mg 6tabs 2 tabs 786.2 Pedro Wiggins by mouth Justin [facility] today then one tab by mouth daily Benzonatate 03/23 Hx Capsules 200mg 30caps 1 cap by 786.2 Pedro Wiggins mouth Justin [facility] three times a day as needed cough Fluticasone 02/20 Hx Suspension 50mcg/Act 2 sprays Katie Propionate intranjenna Porras, - al every Eileen Lupron Depot 02/20 Hx Kit 30mg q 3 Katie /2014 months [place], - per Dr Arellano 03/22 [place] Sumatriptan 02/20 Hx Tablets 100mg 1 tab by Katie Succinate mouth @ Chiquita, - start of M.D. 03/22 farfan, february repeat in 2 hours Escitalopram 02/20 Hx Tablets 10mg 30tabs Take One Katie Oxalate Tablet Chiquita, - By Mouth M.D. 03/22 Day Escitalopram 02/20 Hx Tablets 10mg 30tabs Take One Katie Oxalate Tablet Chiquita, - By Mouth M.D. 01/18 Day Omeprazole 02/20 Hx Capsules 20mg 30caps Take One Pedro Wiggins DR Milagros Anderson DO - By Mouth 04/03 Day Topiramate 02/20 Hx Tablets 25mg 90tabs take one Donato tab in FosterEileen the morning and three tablets by mouth at bedtime Flonase 11/16 Hx Suspension 50mcg/Act 16units 2 sprays Chiquita to each Katie, - nostril 03/22 day Lupron Depot 10/12 Hx Kit 11.25mg per Dr Ortiz [place] Fluticasone Hx Suspension 50mcg/Act 2 sprays Unknown Propionate /0000 intranas - al every Naproxen Sodium Hx Capsules 220mg as Unknown /0000 Needed - 10/18 Omeprazole Hx Capsules 20.6(20Ba 30caps Once Unknown Magnesium /0000 DR condon) mg Daily - 01/02 Calcium 600 + D Hx Tablets 600-200mg 2 by Unknown /0000 -Unit mouth - once 05/19 Hydrocodone Hx Solution 7.5-325mg Take 5 Unknown Bitartrate/Aceta /0000 /15ML ML By minophen - Mouth 01/23 Every Hours For Pain Sore Throat Max Day 20ML Medications Administered in Office Medication Date Status Form Strength Qnty SIG Indications Ordering Provider Injection Administered Injection Jie Ketorolac 017 [place], Tromethamine 30 RPAC MG/mL (Toradol) Injection Administered Injection Jie Ketorolac 016 [place], Tromethamine 30 RPAC MG/mL (Toradol) Injection Administered Injection Jie Ketorolac 016 [place], Tromethamine 30 RPAC MG/mL (Toradol) Immunizations CPT Code Status Date Vaccine Lot # [id number] Given 08/15/2016 Tdap injection [id number] Given 11/07/2015 Influenza Vaccine (Fluzone) Age 3 And Older [id number] Given 07/25/2011 flu vaccination 25866 Given 10/19/2009 flu vaccination 26729 Given 10/19/2009 H1N1 Immuniation Adminstration 61689 Given 10/19/2009 H1N1 Immuniation Adminstration Vital Signs Date Vital Result Comment 05/01/2018 Body Temperature 99.1 F Heart Rate 97 /min Respiratory Rate 20 /min Height 62.5 inches 5'2.50" Weight 179.00 lb BMI (Body Mass Index) 32.2 kg/m2 BSA (Body Surface Area) 1.83 m2 [place] body weight in kilograms 51 O2 % BldC Oximetry 97 % Ra 04/27/2018 BP Systolic Sitting Left Arm 126 mmHg BP Diastolic Sitting Left Arm 87 mmHg Body Temperature 102.5 F Heart Rate 120 /min Respiratory Rate 18 /min Height 62.5 inches 5'2.50" Weight 183.00 lb BMI (Body Mass Index) 32.9 kg/m2 BSA (Body Surface Area) 1.85 m2 [place] body weight in kilograms 51 O2 % BldC Oximetry 98 % Ra 04/10/2018 BP Systolic Sitting Right Arm 110 mmHg BP Diastolic Sitting Right Arm 74 mmHg Body Temperature 97.4 F Heart Rate 92 /min reg Respiratory Rate 18 /min Height 62.5 inches 5'2.50" Weight 180.00 lb BMI (Body Mass Index) 32.4 kg/m2 BSA (Body Surface Area) 1.84 m2 [place] body weight in kilograms 51 O2 % BldC Oximetry 98 % ra 12/29/2017 BP Systolic Sitting Right Arm 130 mmHg BP Diastolic Sitting Right Arm 82 mmHg Body Temperature 98.2 F Heart Rate 100 /min Height 62.5 inches 5'2.50" Weight 197.00 lb BMI (Body Mass Index) 35.5 kg/m2 BSA (Body Surface Area) 1.91 m2 [place] body weight in kilograms 51 11/26/2017 BP Systolic Sitting Right Arm 102 mmHg BP Diastolic Sitting Right Arm 60 mmHg Body Temperature 98.4 F Heart Rate 87 /min Height 62.5 inches 5'2.50" Weight 189.00 lb BMI (Body Mass Index) 34.0 kg/m2 BSA (Body Surface Area) 1.88 m2 [place] body weight in kilograms 51 O2 % BldC Oximetry 97 % ra 10/20/2017 BP Systolic Sitting Right Arm 118 mmHg BP Diastolic Sitting Right Arm 78 mmHg Heart Rate 92 /min Height 62.5 inches 5'2.50" Weight 195.00 lb BMI (Body Mass Index) 35.1 kg/m2 BSA (Body Surface Area) 1.90 m2 [place] body weight in kilograms 51 O2 % BldC Oximetry 97 % ra 10/07/2017 BP Systolic Sitting Right Arm 118 mmHg BP Diastolic Sitting Right Arm 68 mmHg Heart Rate 104 /min Height 62.5 inches 5'2.50" Weight 196.00 lb BMI (Body Mass Index) 35.3 kg/m2 BSA (Body Surface Area) 1.91 m2 [place] body weight in kilograms 51 O2 % BldC Oximetry 98 % 09/01/2017 Body Temperature 97.5 F Heart Rate 83 /min Respiratory Rate 18 /min Height 62.5 inches 5'2.50" Weight 189.00 lb BMI (Body Mass Index) 34.0 kg/m2 BSA (Body Surface Area) 1.88 m2 [place] body weight in kilograms 51 O2 % BldC Oximetry 98 % 05/19/2017 BP Systolic Sitting Right Arm 118 mmHg BP Diastolic Sitting Right Arm 82 mmHg Body Temperature 97.8 F Heart Rate 78 /min Respiratory Rate 18 /min Height 62.5 inches 5'2.50" Weight 192.00 lb BMI (Body Mass Index) 34.6 kg/m2 BSA (Body Surface Area) 1.89 m2 [place] body weight in kilograms 51 O2 % BldC Oximetry 98 % ra 04/03/2017 BP Systolic Sitting Right Arm 132 mmHg BP Diastolic Sitting Right Arm 72 mmHg Height 62.5 inches 5'2.50" Weight 192.00 lb BMI (Body Mass Index) 34.6 kg/m2 BSA (Body Surface Area) 1.89 m2 [place] body weight in kilograms 51 02/20/2017 BP Systolic Sitting Right Arm 128 mmHg BP Diastolic Sitting Right Arm 68 mmHg Body Temperature 97.8 F Height 62.5 inches 5'2.50" Weight 189.50 lb BMI (Body Mass Index) 34.1 kg/m2 BSA (Body Surface Area) 1.88 m2 [place] body weight in kilograms 51 01/23/2017 BP [...] 2 Lymph % 23.8 % 20.0-42.0 2 [place] % 7.2 % 4.3-13.2 2 Eo% 1.6 % 0.0-6.6 2 Bas% 0.4 % 0.0-1.1 2 Neut# 7.36 K/uL High 1.8-7.0 2 Lymph # 2.61 K/uL 1.0-4.0 2 [place] # 0.79 K/uL 0.3-0.9 2 Eos # 0.18 K/uL 0.0-0.5 2 Baso # 0.04 K/uL 0.0-0.1 2 Laboratory test 05/01/2018 [place] Screen NEGATIVE Negative 2, 3 finding (Heterophile) [...] 6.5-7.5 Ua Blood negative Negative Ua Specific [place] 1.030 1.010-1.030 Ua Ketones trace Negative Ua Bilirubin negative Negative Ua Glucose negative Negative Ua RFX Micro & Culture II 04/10/2018 Urine Color YELLOW Yellow 7 Urine Clarity CLEAR Clear 7 Urine Glucose - Dipstick NEGATIVE mg/dL Negative 7 Urine Bilirubin - Dipstick NEGATIVE Negative 7 Urine Ketone NEGATIVE mg/dL Negative 7 Urine Specific [place] 1.020 1.010-1.030 7 Urine Blood NEGATIVE Negative [...] Ketone NEGATIVE mg/dL Negative 10 Urine Specific [place] >=1.030 1.010-1.030 10 Urine Blood NEGATIVE Negative [...] 10 Lymph % 32.0 % 20.0-42.0 10 [place] % 6.7 % 4.3-13.2 10 Eo% 1.6 % 0.0-6.6 10 Bas% 0.5 % 0.0-1.1 10 Neut# 4.96 K/uL 1.8-7.0 10 Lymph # 2.68 K/uL 1.0-4.0 10 [place] # 0.56 K/uL 0.3-0.9 10 Eos # [...] 15 Lymph % 30.9 % 20.0-42.0 15 [place] % 6.2 % 4.3-13.2 15 Eo% 1.6 % 0.0-6.6 15 Bas% 0.3 % 0.0-1.1 15 Neut# 5.38 K/uL 1.8-7.0 15 Lymph # 2.73 K/uL 1.0-4.0 15 [place] # 0.55 K/uL 0.3-0.9 15 Eos # [...] Urine Ketone NEGATIVE mg/dL Negative Urine Specific [place] >=1.030 1.010-1.030 Urine Blood NEGATIVE Negative Urine [...] % 40.4-72.8 Lymph % 31.0 % 17.0-46.1 [place] % 5.9 % 4.3-13.2 Eo% 1.5 % 0.0-6.6 Bas% 0.4 % 0.0-1.1 Neut# 6.85 K/uL 1.8-7.0 Lymph # 3.47 K/uL 1.8-7.0 [place] # 0.66 K/uL 0.3-0.9 Eos # 0.17 [...] Urine Ketone NEGATIVE mg/dL Negative Urine Specific [place] >=1.030 1.010-1.030 Urine Blood LARGE High Negative [...] Urine Ketone NEGATIVE mg/dL Negative Urine Specific [place] 1.020 1.010-1.030 Urine Blood NEGATIVE Negative Urine [...] Urine Ketone NEGATIVE mg/dL Negative Urine Specific [place] 1.025 1.010-1.030 Urine Blood NEGATIVE Negative Urine [...] % 40.4-72.8 Lymph % 33.0 % 17.0-46.1 [place] % 5.5 % 4.3-13.2 Eo% 1.5 % 0.0-6.6 Bas% 0.7 % 0.0-1.1 Neut# 5.19 K/uL 1.8-7.0 Lymph # 2.88 K/uL 1.8-7.0 [place] # 0.48 K/uL 0.3-0.9 Eos # 0.13 [...] % 40.4-72.8 Lymph % 38.3 % 17.0-46.1 [place] % 5.8 % 4.3-13.2 Eo% 1.5 % 0.0-6.6 Bas% 0.5 % 0.0-1.1 Neut# 5.01 K/uL 1.8-7.0 Lymph # 3.57 K/uL 1.8-7.0 [place] # 0.54 K/uL 0.3-0.9 Eos # 0.14 K/uL 0.0-0.5 Baso # 0.05 K/uL 0.0-0.1 Laboratory test finding 09/04/2015 Urine HCG (Qualitative) NEGATIVE Negative 25 Urinalysis With 09/04/2015 Urine Color YELLOW Yellow Microscopic Urine Clarity CLEAR Clear Urine Glucose - Dipstick NEGATIVE mg/dL Negative Urine Bilirubin - Dipstick NEGATIVE Negative Urine Ketone TRACE mg/dL High Negative Urine Specific [place] 1.025 1.010-1.030 Urine Blood LARGE High Negative [...] % 40.4-72.8 Lymph % 31.9 % 17.0-46.1 [place] % 5.5 % 4.3-13.2 Eo% 1.4 % 0.0-6.6 Bas% 0.4 % 0.0-1.1 Neut# 6.03 K/uL 1.0-7.0 Lymph # 3.17 K/uL 1.8-7.0 [place] # 0.55 K/uL 0.3-0.9 Eos # 0.14 [...] High 40.4-72.8 Lymph % 17.7 % 17.0-46.1 [place] % 6.0 % 4.3-13.2 Eo% 0.7 % 0.0-6.6 Bas% 0.2 % 0.0-1.1 Neut# 9.49 K/uL High 1.0-7.0 Lymph # 2.23 K/uL 1.8-7.0 [place] # 0.76 K/uL 0.3-0.9 Eos # 0.09 [...] Urine Ketone NEGATIVE mg/dL Negative Urine Specific [place] 1.025 1.010-1.030 Urine Blood NEGATIVE Negative Urine [...] % 40.4-72.8 Lymph % 32.0 % 17.0-46.1 [place] % 6.7 % 4.3-13.2 Eo% 1.5 % 0.0-6.6 Bas% 0.8 % 0.0-1.1 Neut# 4.40 K/uL 1.0-7.0 Lymph # 2.39 K/uL 1.8-7.0 [place] # 0.50 K/uL 0.3-0.9 Eos # 0.11 [...] 30.8-34.3 Mean Platelet Volume 10.0 fL 8.9-12.4 [place] # 0.69 K/uL 0.3-0.9 [place] % 5.8 % 4.3-13.2 Neut# 7.77 K/uL [...] - Dipstick Negative mg/dL Negative Urine Specific [place] >=1.030 1.010-1.030 Urine Urobilinogen - Dipstick 0.2 [...] influenza A and B molecular assay. Method: WangYou Chromatographic immunoassay 2 J11.2 3 METHOD: [place] II Rapid Immunochromatographic assay [facility] 4 Instrument flagged sample for slide review. [...] may be found at [email or web address]. 13 Method: Accruent[employer] One-Step Immunoassay 14 [employer]: [id number] DONNELL BURR 15 A09 16 NO GROWTH: [...] 26 09/04/15 LAB.DWM Deleted by [employer] UACOM 27 Note: Persistent reduction for 3 months [...] for rectal and pharyngeal specimens. Performed at: [address] [id number] [employer]er: Myesha Saab MD, Phone: [phone] 30 FIRST MORNING SPECIMENS GENERALLY CONTAIN THE HIGHEST CONCENTRATION OF HCG AND ARE RECOMMENDED FOR EARLY DETECTION OF . 31 Acceptable specimens for this test are male urethral swab, endocervical swab and liquid based pap specimens, vaginal swabs in Aptima transports and first void urine. See online Directory of Services for test number for rectal and pharyngeal specimens. Performed at: [address] [id number] [employer]: Myesha Saab MD, Phone: [phone] Please Note: A POSITIVE result for [...] developed and its performance characteristics determined by [facility]. It has not been cleared or approved by the Food and Drug Administration. Results of this test are for investigational purposes only. The result should not be used as a diagnostic procedure without confirmation of the diagnosis by another medically diagnostic product or procedure. Performed at: - [facility] [id number] [employer]: Myesha Saab MD, Phone: [phone] Note: Persistent reduction for 3 months [...] ! URETHRAL RYDER 38 [facility] [address] [place] [address], [address] [place] [address] AFFIRM VAGINOSIS / VAGINITIS REPORT Name: Lorraine Espinal : 1980 (Age: 33) Sex: F Location: [facility] Med. Rec. # Date Collected: 04/26/2014 Billing #: [id number] Date Received: 04/26/2014 Physician(s): ANUSHA CONNORS HEALTH SUPPORT SPECIALIST Source of Specimen: Vaginal Results: Lilia species DNA Probe NEGATIVE Gardnerella vaginalis DNA Probe NEGATIVE Trichomonas vaginalis DNA Probe NEGATIVE Reported: 04/27/2014 Electronic Signature alphonso Kelin [facility] ICD-9 Codes: 616.10 39 RUN DATE: 04/04/14 [facility] LAB LIVE PAGE 1 RUN TIME: [id number] [address] [place], [place] [address] Specimen Inquiry ----- Name: LORRAINE ESPINAL Rachelle : [address]: Gigi Khan DO Acct: [id number] Unit: [id number] AGE: 33 Location: [facility] Re04/02/14 SEX: F Status: DEP ER ----- SPEC: [id number] NERY: 04/02/14-[address] [facility] [address]: Gigi Khan DO REQ: [id number] RECD: 04/02/14-1241 STATUS: TRUMAN DOMINGUEZ DR: [facility] Jie KATZ _ SOURCE: THROAT SPDESC: ORDERED: Throat Beta Str ----- Procedure Result Verified Site ----- Throat Beta Strep Culture Final 04/04/14-0919 ML Negative For Group A Beta Streptococcus ----- END OF REPORT * ML=Testing performed at Main Lab DEPARTMENT OF PATHOLOGY, [address] [place] [address] Jim Alatorre M.D. Director [facility] # [id number] Note: Persistent reduction for 3 months [...] pharyngeal specimens. Performed at: RN - [facility] [address] [id number] [employer]: Myesha Saab MD, Phone: [phone] Procedures Date CPT Code Description Status 01/23/2017 37217 Theraputic Or Diagnostic Injection Completed 08/15/2016 82292 Theraputic Or Diagnostic Injection Completed 08/01/2016 46074 Theraputic Or Diagnostic Injection Completed Encounters Type Date Location Provider CPT E/M Dx Office Visit 04/10/2018 11:40a Primary Care Office Adarsh Leon M.D. 03411 R35.0 R30.0 Z79.899 Office Visit 12/29/2017 2:20p [place] [address] R30.0 B37.3 Office Visit 11/26/2017 9:00a Primary Care Office James Dumont 81569 J11.1 Eileen R50.81 Office Visit 10/20/2017 2:30p Primary Care Office Jie Vyas 25210 M62.830 [facility] G43.009 Office Visit 10/07/2017 9:00a Primary Care Office Jie Kiasering, 49025 J01.90 [facility] R05 Office Visit 09/01/2017 2:30p Primary Care Office Jie Kaisering, 82449 R05 RPA Office Visit 05/19/2017 2:00p Primary Care Office Jie [place], 97099 J01.90 RPA Office Visit 04/03/2017 2:45p Primary Care Office Jie [place], 31116 F43.23 RPA Office Visit 02/20/2017 10:00a Primary Care Office Jie [place], 24606 J02.9 [facility] J06.9 Office Visit 01/23/2017 1:30p Primary Care Office Jie Kaisering, 37686 G43.009 [facility] Office Visit 11/18/2016 9:45a Primary Care Office Jie Kaisering, 10427 J01.90 RPA Office Visit 10/21/2016 2:00p Primary Care Office Jie Kaisering, 14442 A09 RPA Office Visit 08/15/2016 10:15a Primary Care Office Jie Kaisering, 48547 G43.009 [facility] F43.23 Z23 Office Visit 08/01/2016 11:15a Primary Care Office Jie Kaisering, 32304 G43.009 RPAC F43.23 Office Visit 01/19/2016 9:45a Primary Care Office Jie Vyas, [facility] [address]8786 N80.9 R10.84 Office Visit 12/27/2015 1:45p Primary Care Office Jie [place], 08921 R10.84 [facility] A09 Office Visit 11/07/2015 1:00p Primary Care Office Jie Kaisering, [facility] 11756 Z23 R53.81 H81.10 Office Visit 10/18/2015 1:30p Primary Care Office Jie [place], 48864 G43.009 [facility] Office Visit 08/24/2015 10:15a Primary Care Office Jie [place], 48791 J01.90 RPA Office Visit 05/19/2015 1:15p Primary Care Office Jie Kaisering, 55703 380.10 [facility] 780.60 Office Visit 04/06/2015 9:45a Primary Care Office Jie Vyas, [phone] [facility] Office Visit 03/23/2015 1:15p Primary Care Office Jie Vyas, [phone] [facility] Plan of Care Future Appointment(s):05/08/2018 9:30 am - Catarina Rob, MS, ROSELYN, CNM at [facility] [id number]/2018 - Catarina Rob, MS, [place], [id number] Influenza due to unidentified influenza virus w GI manifestComments:Patient to: increase fluids, use steam inhalation 20 to 30 minutes three times a day,use saline irrigation (Neti pot), sleep with head of the bed elevated, avoid exposure to smoke or fumes, avoid caffeine and alcohol. Call back if symptoms are worsening and not resolved. We will get mono spot due to swollen lymph nodes, fever, sore throat, [id number] Acute sinusitis, unspecifiedNew Medication:Amoxicillin/ Clavulanate Potassium 875-125 mgAtrovent 0.06 %Doxycycline Monohydrate 100 mgLevofloxacin 500 mgLevofloxacin 750 mgPseudoephedrine HCL 30 mgLoratadine 10 mgFluticasone Propionate Nasal [place] Allergy Relief 24- Hour 50 mcg/ActAtrovent HFA 17 mcg/ActComments:Not sure why all theses meds are here. I order Augmentin antibiotic onlyFollow up:Return to office if no improvement of [id number] CoughComments:As Benzonatate was not effective, Cheratussin AC was ordered. Discussed Herbal tea with [place] kelly up:OOW for 1 more week RTO next Friday for Follow up
--- OUTSIDE RECORDS SUMMARY | 2018-05-17 08:24 | XMS REPORT ---
:1980 External Reference #:[id number] Author Organization [facility] Address [address] [place] [address] Phone [phone] Care Team Providers Name Role Phone Jie Vyas RPAC Care Team Information Financial Secretary Unavailable Jie Vyas RPAC Primary Care Physician Unavailable Payers Type Date Identification Numbers Payment Provider Subscriber Commercial Effective: Policy Number: [id number] [employer]idel[employer] Medicaid Lorraine Rachelle Kae 2015 PayID: [id number] [address] [place] [address] Problems Date Description Provider Status Onset: 09/01/2013 Endometriosis (clinical) MARIANELA Bates Active Onset: 01/04/2013 Depressive disorder [facility] Active Onset: 09/24/2011 Plantar fascial fibromatosis Citlalli Dominique FNP Active Onset: 03/23/2015 Migraine Jie Vyas [facility] Active Onset: 09/04/2015 Steatosis of liver [facility] Active Onset: 12/18/2017 Degenerative joint disease involving Jie Vyas [facility] Active multiple joints Note: knee Onset: 01/08/2018 Mixed hyperlipidemia [facility]ie [facility]as [facility] Active Onset: 01/08/2018 Vitamin D deficiency [facility] Active Onset: 04/10/2018 Increased frequency of urination [...] follows no dietary restrictions 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 ETOH Use Currently consumes alcohol socially Smoking Patient has never smoked Allergies, Adverse Reactions, Alerts Date Description Reaction Status Severity Comments 02/20/2015 NKDA active Medications Medication Date Status Form Strength Qnty SIG Indications Ordering Provider Ondansetron HCL 04/27 Active Tablets 8mg 20tabs Take one J11.2 Catarina tablet MS Darron, every 8 MAPPING TECHNICIAN-C, CNM hours as needed for nausea and vomiting Sumatriptan Active Tablets 100mg take 1/2 Saada, Succinate / - 1 Fahed tablet by mouth at onset of aura, may repeat in 2 hours Naproxen Active Tablets 500mg take one Saada, / tablet Fahed by mouth twice a day with food as needed Phendimetrazine Active Tablets 35mg 1 tablet Reinoso, Tartrate / twice MD Americo daily. Pyridium 04/10 Hx Tablets 200mg 6tabs take 1 R30.0 Andras tablet Eileen Leon - by mouth 04/27 times a day after meals for 2 [...] 1 tab each day until gone Oseltamivir 02/21 Hx Capsules 75mg 10caps 1 tab by J11.1 James Phosphate mouth [place], - twice a M.D. 12/29 day 5 days Cyclobenzaprine 10/20 Hx Tablets 10mg 30tabs take 1 M62.830 HCL edgar Foster M.D. - every 8 [...] Hx Capsules 200mg 30caps 1 cap by varun Foster M.D. three times a day [...] Hx Tablets 10mg 30tabs 1 tab by varun Foster M.D. - every 02/20- hours as needed migraine pain ::: Bactrim DS 11/22 Hx Tablets 800-160mg 20tabs 1 tab by Burt varun Foster M.D. - twice a Amoxicillin 11/18 Hx Tablets 875mg 14tabs 1 tab by Burt varun Foster M.D. - twice a Fluconazole 11/18 Hx Tablets 150mg 1tabs 1 tab by Burt Donato varun Foster M.D. - today 01/23 Frovatriptan 08/23 Hx Tablets 2.5mg 18tabs 1 tab po G43.009 Pedro E. Succinate at start Justin DO - of Farfan, 11/18 repeat in 2 hrs, or at 4 hrs if necessar y Diclofenac 08/[address] 75mg 60tabs take one Pedro E. Sodium tablet Justin DO - by mouth 11/18 twice day with food for pain Rizatriptan 08/15 Hx Tablets 10mg 14tabs 1 by G43. Pedro E. Benzoate mouth at Justin DO - start of 08/23 farfan/auraFebruary repeat in 2 hours Fluoxetine HCL 08/15 Hx Capsules 20mg 30caps Take One F4. Capsule Eileen Foster - By Mouth 04/03 Day Fluoxetine HCL 08/01 Hx Capsules 10mg 30caps 1 by F43. Pedro E. mouth Justin DO - every Hydroxyzine HCL 08/01 Hx Tablets 10mg 60tabs take one F4. Pedro E. tablet Justin DO by mouth [...] needed migraine farfan ::: Referenc e #: [id number] Sumatriptan 10/18 Hx Tablets 100mg 9tabs one by G43.Chandan Wiggins mouth at Justin CORDOVA - Onset of [...] 15tabs Every 8 Hours as - Needed 01/13 prn Nausea Cephalexin 08/24 Hx Capsules 500mg 30caps 1 cap ( J01.90 Pedro Wiggins /2014 or tab) Justin DO - by mouth 09/22 times a day Mucinex 08/24 Hx Tablets ER 600mg 30tabs take two J01.90 Pedro Wiggins 12HR by mouth Justin CORDOVA - twice a 10/18 day for congesti on Work Note 08/24 Hx Evaluate Pedro Wiggins /2014 d for Justin CORDOVA - acute 09/22 illness today at [facility]. Please excuse Fluticasone 08/24 Hx Suspension 50mcg/Act 16units [place] 2 J01.90 Pedro Wiggins Propionate Sprays Justin CORDOVA - In Each 05/19 Nostril /2016 Once Daily Neomycin/Polymyx 05/19 Hx Suspension 3.5-62102 7.500ml 3 drops 380.10 Pedro Wiggins in/Hydrocortison [...] Hx Suspension 50mcg/Act 2 sprays Katie Propionate intranas Chiquita, - al every MHu Lupron Depot 02/20 Hx Kit 30mg q 3 Katie /2014 months Chiquita, - per Dr Arellano 06/ Sumatriptan 02/20 Hx Tablets 100mg 1 tab by Katie Succinate mouth @ Chiquita, - start of M.D. 03/22 farfan, february repeat in 2 hours Escitalopram 02/20 Hx Tablets 10mg 30tabs Take One Katie Oxalate Tablet Chiquita, - By Mouth M.D. 03/22 Day Escitalopram 02/20 Hx Tablets 10mg 30tabs Take One Katie Oxalate Tablet Chiuqita, - By Mouth M.D. 01/18 Day Omeprazole 02/20 Hx Capsules 20mg 30caps Take One Pedro Wiggins DR Milagros Anderson DO - By Mouth 04/03 Day Topiramate 02/20 Hx Tablets 25mg 90tabs take one Donato tab in Eileen Foster the morning and three tablets by mouth at bedtime Flonase 11/16 Hx Suspension 50mcg/Act 16units 2 sprays Chiquita to each Katie, Jairo nostril 03/22 day Lupron Depot 10/12 Hx Kit 11.25mg per Dr Ortiz [place] Fluticasone Hx Suspension 50mcg/Act 2 sprays Unknown [...] Provider Injection Administered Injection Jie Ketorolac 017 [place], Tromethamine 30 RPAC MG/mL (Toradol) Injection Administered Injection Jie Ketorolac 016 [place], Tromethamine 30 RPAC MG/mL (Toradol) Injection Administered Injection Jie Ketorolac 016 [place], Tromethamine 30 RPAC MG/mL (Toradol) Immunizations CPT Code Status Date Vaccine Lot # [id number] Given 08/15/2016 Tdap injection [id number] Given 11/07/2015 Influenza Vaccine (Fluzone) Age 3 And Older [id number] Given 07/25/2011 flu vaccination 66893 Given 10/19/2009 flu vaccination 27409 Given 10/19/2009 H1N1 Immuniation Adminstration 44037 Given 10/19/2009 H1N1 Immuniation Adminstration Vital Signs Date Vital Result Comment 04/27/2018 BP Systolic Sitting Left Arm 126 mmHg BP Diastolic Sitting Left Arm 87 mmHg Body Temperature 102.5 F Heart Rate 120 /min Respiratory Rate 18 /min Height 62.5 inches 5'2.50" Weight 183.00 lb BMI (Body Mass Index) 32.9 kg/m2 BSA (Body Surface Area) 1.85 m2 [place] body weight in kilograms 51 O2 % BldC Oximetry 98 % Ra 04/10/2018 BP Systolic Sitting Right Arm 110 mmHg BP Diastolic Sitting Right Arm 74 mmHg Body Temperature 97.4 F Heart Rate 92 /min reg Respiratory Rate 18 /min Height 62.5 inches 5'2.50" Weight 180.00 lb BMI (Body Mass Index) 32.4 kg/m2 BSA (Body Surface Area) 1.84 m2 [place] body weight in kilograms 51 O2 % BldC Oximetry 98 % ra 12/29/2017 BP Systolic Sitting Right Arm 130 mmHg BP Diastolic Sitting Right Arm 82 mmHg Body Temperature 98.2 F Heart Rate 100 /min Height 62.5 inches 5'2.50" Weight 197.00 lb BMI (Body Mass Index) 35.5 kg/m2 BSA (Body Surface Area) 1.91 m2 [place] body weight in kilograms 51 11/26/2017 BP Systolic Sitting Right Arm 102 mmHg BP Diastolic Sitting Right Arm 60 mmHg Body Temperature 98.4 F Heart Rate 87 /min Height 62.5 inches 5'2.50" Weight 189.00 lb BMI (Body Mass Index) 34.0 kg/m2 BSA (Body Surface Area) 1.88 m2 [place] body weight in kilograms 51 O2 % BldC Oximetry 97 % ra 10/20/2017 BP Systolic Sitting Right Arm 118 mmHg BP Diastolic Sitting Right Arm 78 mmHg Heart Rate 92 /min Height 62.5 inches 5'2.50" Weight 195.00 lb BMI (Body Mass Index) 35.1 kg/m2 BSA (Body Surface Area) 1.90 m2 [place] body weight in kilograms 51 O2 % BldC Oximetry 97 % ra 10/07/2017 BP Systolic Sitting Right Arm 118 mmHg BP Diastolic Sitting Right Arm 68 mmHg Heart Rate 104 /min Height 62.5 inches 5'2.50" Weight 196.00 lb BMI (Body Mass Index) 35.3 kg/m2 BSA (Body Surface Area) 1.91 m2 [place] body weight in kilograms 51 O2 % BldC Oximetry 98 % 09/01/2017 Body Temperature 97.5 F Heart Rate 83 /min Respiratory Rate 18 /min Height 62.5 inches 5'2.50" Weight 189.00 lb BMI (Body Mass Index) 34.0 kg/m2 BSA (Body Surface Area) 1.88 m2 [place] body weight in kilograms 51 O2 % BldC Oximetry 98 % ra 05/19/2017 BP Systolic Sitting Right Arm 118 mmHg BP Diastolic Sitting Right Arm 82 mmHg Body Temperature 97.8 F Heart Rate 78 /min Respiratory Rate 18 /min Height 62.5 inches 5'2.50" Weight 192.00 lb BMI (Body Mass Index) 34.6 kg/m2 BSA (Body Surface Area) 1.89 m2 [place] body weight in kilograms 51 O2 % BldC Oximetry 98 % ra 04/03/2017 BP Systolic Sitting Right Arm 132 mmHg BP Diastolic Sitting Right Arm 72 mmHg Height 62.5 inches 5'2.50" Weight 192.00 lb BMI (Body Mass Index) 34.6 kg/m2 BSA (Body Surface Area) 1.89 m2 [place] body weight in kilograms 51 02/20/2017 BP Systolic Sitting Right Arm 128 mmHg BP Diastolic Sitting Right Arm 68 mmHg Body Temperature 97.8 F Height 62.5 inches 5'2.50" Weight 189.50 lb BMI (Body Mass Index) 34.1 kg/m2 BSA (Body Surface Area) 1.88 m2 [place] body weight in kilograms 51 01/23/2017 BP [...] Test Date Test Result H/L Range Note Ua RFX Micro & Culture II 04/10/2018 Urine Color YELLOW Yellow 1 Urine Clarity CLEAR Clear 1 Urine Glucose - Dipstick NEGATIVE mg/dL Negative 1 Urine Bilirubin - Dipstick NEGATIVE Negative 1 Urine Ketone NEGATIVE mg/dL Negative 1 Urine Specific [place] 1.020 1.010-1.030 1 Urine Blood NEGATIVE Negative 1 Urine PH 6.5 6.5-7.5 1 Urine Protein - Dipstick NEGATIVE mg/dL Negative 1 Urine Urobilinogen - Dipstick 0.2 E.U./dL 0.2-1.0 1 Urine Nitrite - Dipstick NEGATIVE Negative 1 Urine Leuk Esterase NEGATIVE Negative 1 Source: URINE, CLEAN CAT <SEE NOTE> 1, 2 Urine Culture 04/10/2018 Urine Culture NO GROWTH: FINAL <SEE NOTE> 1, 3 Urine Dipstick 04/10/2018 Ua Color dark yellow Yellow Ua Clarity clear Clear Ua Leuko negative Negative Ua Nitrite negative Negative Ua Urobilinogen 0.2 0.2 - 1.0 E.U./dL Ua Protein trace Negative Ua PH 6.0 Low 6.5-7.5 Ua Blood negative Negative Ua Specific [place] 1.030 1.010-1.030 Ua Ketones trace Negative Ua Bilirubin negative Negative Ua Glucose negative Negative Ketones Ur 05/10/2017 Ketones Ur Negative Negative Strip.auto-mCnc Strip.auto-mCnc Leukocyte esterase Ur Ql 05/10/2017 Leukocyte esterase Ur Ql Negative Negative Strip.auto Strip.auto Lymphocytes [#/volume] 05/10/2017 Lymphocytes [#/volume] 2.68 1.0-4.0 in Blood by Automated in Blood by Automated count count Lymphocytes/leuk NFr Bld 05/10/2017 Lymphocytes/leuk NFr Bld 32.0 20.0- 42.0 Auto Auto MCV RBC Auto 05/10/2017 MCV RBC Auto 85.2 80.9-99.0 Monocytes/leuk NFr Bld 05/10/2017 Monocytes/leuk NFr Bld 6.7 4.3-13.2 Auto Auto Neutrophils # Bld Auto 05/10/2017 Neutrophils # Bld Auto 4.96 1.8-7.0 Neutrophils/leuk NFr Bld 05/10/2017 Neutrophils/leuk NFr Bld 59.2 40.4- 72.8 Auto Auto Nitrite Ur Ql Strip.auto 05/10/2017 Nitrite Ur Ql Strip.auto Negative Negative PMV Bld Auto 05/10/2017 PMV Bld Auto 10.5 8.9-12.4 Platelets [#/volume] in 05/10/2017 Platelets [#/volume] in 309 150-400 Blood by Automated count Blood by Automated count Potassium SerPl-sCnc 05/10/2017 Potassium SerPl-sCnc 4.1 3.5-5.1 Prot SerPl-mCnc 05/10/2017 Prot SerPl-mCnc 8.2 6.4-8.2 Prot Ur Strip.auto-mCnc 05/10/2017 Prot Ur Strip.auto-mCnc Trace Negative RDW RBC Auto 05/10/2017 RDW RBC Auto 38.6 3-47 RDW RBC Auto-Rto 05/10/2017 RDW RBC Auto-Rto 12.7 11.7-14.4 Serum or plasma lipase 05/10/2017 Serum or plasma lipase 139 73-393 measurement (enzymatic measurement (enzymatic acti activity/volume) Serum or plasma total 05/10/2017 Serum or plasma total 0.4 0.2-1.0 bilirubin measurement bilirubin measurement (mass/ (mass/volume) Sodium SerPl-sCnc 05/10/2017 Sodium SerPl-sCnc 140 136-145 Urine appearance 05/10/2017 Urine appearance Clear Clear determination determination Urine glucose 05/10/2017 Urine glucose Negative Negative measurement by automated measurement by automated test strip test strip (mass/volume) Urine hemoglobin 05/10/2017 Urine hemoglobin Negative Negative detection by automated detection by automated test strip test strip Urine total bilirubin 05/10/2017 Urine total bilirubin Negative Negative detection by automated detection by automated test test strip Urobilinogen Ur 05/10/2017 Urobilinogen Ur 0.2 0.2-1.0 Strip-aCnc Strip-aCnc WBC # Bld Auto 05/10/2017 WBC # Bld Auto 8.4 3.1-10.7 pH Ur Strip.auto 05/10/2017 pH Ur Strip.auto 6.0 Low 6.5-7.5 Ua RFX Micro & Culture 05/10/2017 Urine Color YELLOW Yellow 4 II Urine Clarity CLEAR Clear 4 Urine Glucose - Dipstick NEGATIVE mg/dL Negative 4 Urine Bilirubin - Dipstick NEGATIVE Negative 4 Urine Ketone NEGATIVE mg/dL Negative 4 Urine Specific [place] >=1.030 1.010-1.030 4 Urine Blood NEGATIVE Negative 4 Urine PH 6.0 Low 6.5-7.5 4 Urine Protein - Dipstick TRACE mg/dL Negative 4 Urine Urobilinogen - Dipstick 0.2 E.U./dL 0.2-1.0 4 Urine Nitrite - Dipstick NEGATIVE Negative 4 Urine Leuk Esterase NEGATIVE Negative 4 Source: URINE, CLEAN CAT <SEE NOTE> 4, 5 CBS W/Automated Diff 05/10/2017 White Blood Count 8.4 K/uL 3.1-10.7 4 Red Blood Count 4.54 M/uL 3.90-5.40 4 Hemoglobin 13.7 gm/dL 11.6-15.8 4 Hematocrit 38.7 % 36.0-46.1 4 Mean Cell Volume 85.2 fl 80.9-99.0 4 Mean Corpuscular HGB 30.2 pg 25.9-32.7 4 Mean Corpuscular HGB Conc 35.4 g/dL High 30.8-34.3 4 Platelet Count 309 K/uL 150-400 4 Red Cell Distri Width SD 38.6 fl 3-47 4 Red Cell Distri Width %CV 12.7 % 11.7-14.4 4 Mean Platelet Volume 10.5 fL 8.9-12.4 4 Neut% 59.2 % 40.4-72.8 4 Lymph % 32.0 % 20.0-42.0 4 [place] % 6.7 % 4.3-13.2 4 Eo% 1.6 % 0.0-6.6 4 Bas% 0.5 % 0.0-1.1 4 Neut# 4.96 K/uL 1.8-7.0 4 Lymph # 2.68 K/uL 1.0-4.0 4 [place] # 0.56 K/uL 0.3-0.9 4 Eos # 0.13 K/uL 0.0-0.5 4 Baso # 0.04 K/uL 0.0-0.1 4 Comprehensive Metabolic Panel 05/10/2017 Glucose 117 mg/dL High 74-106 4 BUN 11 mg/dL 7-18 4 Creatinine 0.7 mg/dL 0.6-1.3 4 Glom Filtration Rate, Estimate >60 mL/min >60 4 If >60 mL/min >60 4, 6 BUN/Creat 15.7 ratio 4 Sodium 140 mmol/L 136-145 4 Potassium 4.1 mmol/L 3.5-5.1 4 Chloride 107 mmol/L 98-107 4 Carbon Dioxide 26 mmol/L 21-32 4 Anion Gap 7 mEq/L Low 8-16 4 Calcium 8.9 mg/dL 8.5-10.1 4 Total Protein 8.2 g/dL 6.4-8.2 4 Albumin 3.7 g/dL 3.4-5.0 4 Globulin 4.5 g/dL High 1.9-4.3 4 Alb/Glob 0.8 ratio 4 Bilirubin,Total 0.4 mg/dL 0.2-1.0 4 Sgot/Ast 32 U/L 15-37 4 SGPT/Alt 40 U/L 12-78 4 Alkaline Phosphatase 111 U/L 45-117 4 Laboratory test finding 05/10/2017 Lipase 139 U/L 73-393 4 HCG,Serum (Qualitative) NEGATIVE (Negative) 4, 7 Alp SerPl-cCnc 05/10/2017 Alp SerPl-cCnc 111 45-117 [...] 7-18 BUN/Creat SerPl 05/10/2017 BUN/Creat SerPl 15.7 Basophils [#/volume] in 05/10/2017 Basophils [#/volume] in 0.04 0.0-0.1 Blood by Automated Blood by Automated count count Hct VFr Bld Auto 05/10/2017 Hct VFr Bld Auto 38.7 36.0-46.1 Glucose [Mass/volume] 05/10/2017 Glucose [Mass/volume] 117 High 74-106 in Serum or Plasma in Serum or Plasma Globulin Ser Calc-mCnc 05/10/2017 Globulin Ser Calc-mCnc 4.5 High 1.9-4.3 Eosinophil/leuk NFr Bld 05/10/2017 Eosinophil/leuk NFr Bld 1.6 0.0-6.6 Auto Auto Eosinophil # Bld Auto 05/10/2017 Eosinophil [...] Basophils/leuk NFr Bld 0.5 0.0-1.1 Auto Auto Xray 02/28/2017 Foot, 2 Views, Left <pending> Laboratory test finding 11/15/2016 Rapid Strep Molecular Negative Negative 8 CBS W/Automated Diff 10/21/2016 White Blood Count 8.8 K/uL 3.1-10.7 9 Red Blood Count 4.67 M/uL 3.90-5.40 9 Hemoglobin 13.7 gm/dL 11.6-15.8 9 Hematocrit 40.2 % 36.0-46.1 9 Mean Cell Volume 86.1 fl 80.9-99.0 9 Mean Corpuscular HGB 29.3 pg 25.9-32.7 9 Mean Corpuscular HGB Conc 34.1 g/dL 30.8-34.3 9 Platelet Count 331 K/uL 155-360 9 Red Cell Distri Width SD 40.2 fl 3-47 9 Red Cell Distri Width %CV 13.1 % 11.7-14.4 9 Mean Platelet Volume 10.9 fL 8.9-12.4 9 Neut% 61.0 % 40.4-72.8 9 Lymph % 30.9 % 20.0-42.0 9 [place] % 6.2 % 4.3-13.2 9 Eo% 1.6 % 0.0-6.6 9 Bas% 0.3 % 0.0-1.1 9 Neut# 5.38 K/uL 1.8-7.0 9 Lymph # 2.73 K/uL 1.0-4.0 9 [place] # 0.55 K/uL 0.3-0.9 9 Eos # 0.14 K/uL 0.0-0.5 9 Baso # 0.03 K/uL 0.0-0.1 9 Liver Function Tests 10/21/2016 Total Protein 7.8 g/dL 6.4-8.2 9 Albumin 3.9 g/dL 3.4-5.0 9 Globulin 3.9 g/dL 1.9-4.3 9 Alb/Glob 1.0 ratio 9 Bilirubin,Total 0.7 mg/dL 0.2-1.0 9 Bilirubin,Direct 0.1 mg/dL 0.0-0.2 9 Bilirubin,Indirect 0.6 mg/dL 0.0-0.9 9 Sgot/Ast 24 U/L 15-37 9 SGPT/Alt 34 U/L 12-78 9 Alkaline Phosphatase 100 U/L 45-117 9 Laboratory test finding 10/21/2016 Lipase 149 U/L 73-393 9 Amylase 63 U/L 25-115 9 Laboratory test 12/27/2015 Cryptosporidium Antigen Negative For finding Cryptosporidium Specific Antigen Giardia Antigen (Hal) Negative For Giardia Specific Antigen. Shiga Toxin Test Shiga Toxin 1 Not Detected Stool Culture Organism: No Enteric Pathogens Isolated Laboratory test finding 12/27/2015 Aerobic Blood Culture No Growth: Final Report Anaerobic Blood Culture No Growth: Final Report Blood Culture 12/27/2015 Blood Culture Aerobic See Note 10 Blood Culture Anaerobic See Note 11 CBC 12/26/2015 White Blood Count 9.6 K/uL [...] >60 mL/min >60 If >60 mL/min >60 12 BUN/Creat 20.0 ratio Sodium 139 mmol/L 136-145 Potassium 3.7 mmol/L 3.5-5.1 Chloride 104 mmol/L 98-107 Carbon Dioxide 28 mmol/L 21-32 Anion Gap 7 mEq/L Low 8-16 Calcium 8.6 mg/dL 8.5-10.1 Total Protein 7.8 g/dL 6.4-8.2 Albumin 3.8 g/dL 3.4-5.0 Globulin 4.0 g/dL 1.9-4.3 Alb/Glob 1.0 ratio Bilirubin,Total 0.5 mg/dL 0.2-1.0 Sgot/Ast 25 U/L 15-37 SGPT/Alt 38 U/L 12-78 Alkaline Phosphatase 95 U/L 45-117 Urine Screen 12/26/2015 Urine Color YELLOW Yellow Urine Clarity SL CLOUDY Clear Urine Glucose - Dipstick NEGATIVE mg/dL Negative Urine Bilirubin - Dipstick NEGATIVE Negative Urine Ketone NEGATIVE mg/dL Negative Urine Specific [place] >=1.030 1.010-1.030 Urine Blood NEGATIVE Negative Urine PH 5.5 Low 6.5-7.5 Urine Protein - Dipstick NEGATIVE mg/dL Negative Urine Urobilinogen - Dipstick 0.2 E.U./dL 0.2-1.0 Urine Nitrite - Dipstick NEGATIVE Negative Urine Leuk Esterase NEGATIVE Negative Laboratory test finding 12/26/2015 Carbon Dioxide Level [...] >60 mL/min >60 If >60 mL/min >60 13 BUN/Creat 30.0 ratio Sodium 139 mmol/L 136-145 [...] % 40.4-72.8 Lymph % 31.0 % 17.0-46.1 [place] % 5.9 % 4.3-13.2 Eo% 1.5 % 0.0-6.6 Bas% 0.4 % 0.0-1.1 Neut# 6.85 K/uL 1.8-7.0 Lymph # 3.47 K/uL 1.8-7.0 [place] # 0.66 K/uL 0.3-0.9 Eos # 0.17 K/uL 0.0-0.5 Baso # 0.04 K/uL 0.0-0.1 Laboratory test finding 12/12/2015 Slide Review . 14 Laboratory test finding 12/12/2015 Basophils # (Auto) [...] finding 12/12/2015 Urine HCG (Qualitative) NEGATIVE Negative 15 Urinalysis With 12/12/2015 Urine Color YELLOW Yellow Microscopic Urine Clarity CLEAR Clear Urine Glucose - Dipstick NEGATIVE mg/dL Negative Urine Bilirubin - Dipstick NEGATIVE Negative Urine Ketone NEGATIVE mg/dL Negative Urine Specific [place] >=1.030 1.010-1.030 Urine Blood LARGE High Negative [...] RFX Micro + Culture II See Note 16 Laboratory test finding 12/12/2015 Urine Bilirubin Negative [...] Urine Ketone NEGATIVE mg/dL Negative Urine Specific [place] 1.020 1.010-1.030 Urine Blood NEGATIVE Negative Urine [...] Urine Ketone NEGATIVE mg/dL Negative Urine Specific [place] 1.025 1.010-1.030 Urine Blood NEGATIVE Negative Urine [...] Negative Negative Urine Urobilinogen 0.2 0.2-1.0 CBC W/Automated Diff 12/04/2015 White Blood Count [...] % 40.4-72.8 Lymph % 33.0 % 17.0-46.1 [place] % 5.5 % 4.3-13.2 Eo% 1.5 % 0.0-6.6 Bas% 0.7 % 0.0-1.1 Neut# 5.19 K/uL 1.8-7.0 Lymph # 2.88 K/uL 1.8-7.0 [place] # 0.48 K/uL 0.3-0.9 Eos # 0.13 K/uL 0.0-0.5 Baso # 0.06 K/uL 0.0-0.1 Comprehensive Metabolic Panel 12/04/2015 Glucose 99 mg/dL 74-106 BUN 14 mg/dL 7-18 Creatinine 0.7 mg/dL 0.6-1.3 Glom Filtration Rate, Estimate >60 mL/min >60 If >60 mL/min >60 17 BUN/Creat 20.0 ratio Sodium 139 mmol/L 136-145 [...] U/L 12-78 Alkaline Phosphatase 97 U/L 45-117 Laboratory test finding 12/04/2015 Lipase 143 U/L 73-393 HCG,Serum (Qualitative) NEGATIVE (Negative) Laboratory test finding 12/04/2015 Basophils # (Auto) [...] Dioxide Level 26 21-32 Laboratory test finding 11/23/2015 Thyroid Stim Hormone [...] mL/min >60 18 BUN/Creat 20.0 ratio Sodium 141 mmol/L 136-145 [...] % 40.4-72.8 Lymph % 38.3 % 17.0-46.1 [place] % 5.8 % 4.3-13.2 Eo% 1.5 % 0.0-6.6 Bas% 0.5 % 0.0-1.1 Neut# 5.01 K/uL 1.8-7.0 Lymph # 3.57 K/uL 1.8-7.0 [place] # 0.54 K/uL 0.3-0.9 Eos # 0.14 K/uL 0.0-0.5 Baso # 0.05 K/uL 0.0-0.1 Laboratory test finding 09/04/2015 Urine HCG (Qualitative) NEGATIVE Negative 19 Urinalysis With 09/04/2015 Urine Color YELLOW Yellow Microscopic Urine Clarity CLEAR Clear Urine Glucose - Dipstick NEGATIVE mg/dL Negative Urine Bilirubin - Dipstick NEGATIVE Negative Urine Ketone TRACE mg/dL High Negative Urine Specific [place] 1.025 1.010-1.030 Urine Blood LARGE High Negative [...] RFX Micro + Culture II See Note 20 Laboratory test finding 09/04/2015 Urine Bilirubin Negative Negative Urine Glucose (Ua) Negative Negative Urine Ketones Trace High Negative Urine Leukocyte Esterase Negative Negative Urine Nitrite Negative Negative Urine Protein Negative Negative Urine Urobilinogen 0.2 0.2-1.0 Comprehensive Metabolic Panel 09/04/2015 Glucose 86 mg/dL 74-106 BUN 19 mg/dL High 7-18 Creatinine 0.6 mg/dL 0.6-1.3 Glom Filtration Rate, Estimate >60 mL/min >60 If >60 mL/min >60 21 BUN/Creat 31.6 ratio Sodium 141 mmol/L 136-145 [...] % 40.4-72.8 Lymph % 31.9 % 17.0-46.1 [place] % 5.5 % 4.3-13.2 Eo% 1.4 % 0.0-6.6 Bas% 0.4 % 0.0-1.1 Neut# 6.03 K/uL 1.0-7.0 Lymph # 3.17 K/uL 1.8-7.0 [place] # 0.55 K/uL 0.3-0.9 Eos # 0.14 [...] >60 mL/min >60 If >60 mL/min >60 22 BUN/Creat 12.5 ratio Sodium 138 mmol/L 136-145 [...] High 40.4-72.8 Lymph % 17.7 % 17.0-46.1 [place] % 6.0 % 4.3-13.2 Eo% 0.7 % 0.0-6.6 Bas% 0.2 % 0.0-1.1 Neut# 9.49 K/uL High 1.0-7.0 Lymph # 2.23 K/uL 1.8-7.0 [place] # 0.76 K/uL 0.3-0.9 Eos # 0.09 K/uL 0.0-0.5 Baso # 0.03 K/uL 0.0-0.1 Chlamydia/GC [place], Urine 05/30/2015 Chlamydia Trachomatis,Ur Negative Negative -[place] Neisseria Gonorrhoeae,Ur -[place] Negative Negative Urine note: See Note 23 Urine HCG (Qualitative) 05/30/2015 Urine HCG (Qualitative) NEGATIVE Negative 24 Laboratory test finding 05/30/2015 Basophils # (Auto) [...] 3-47 Reference Lab Test Comments See Note 25 Sodium Level 138 136-145 Urine Bilirubin Negative Negative Urine Glucose (Ua) Negative Negative Urine Ketones Negative Negative Urine Leukocyte Esterase Negative Negative Urine Nitrite Negative Negative Urine Protein Negative Negative Urine Urobilinogen 0.2 0.2-1.0 Urine Screen 05/30/2015 Urine Color YELLOW Yellow Urine Clarity CLEAR Clear Urine Glucose - Dipstick NEGATIVE mg/dL Negative Urine Bilirubin - Dipstick NEGATIVE Negative Urine Ketone NEGATIVE mg/dL Negative Urine Specific [place] 1.025 1.010-1.030 Urine Blood NEGATIVE Negative Urine PH 5.5 Low 6.5-7.5 Urine Protein - Dipstick NEGATIVE mg/dL Negative Urine Urobilinogen - Dipstick 0.2 E.U./dL 0.2-1.0 Urine Nitrite - Dipstick NEGATIVE Negative Urine Leuk Esterase NEGATIVE Negative Laboratory test finding 04/06/2015 Sedimentation Rate 36 [...] % 40.4-72.8 Lymph % 32.0 % 17.0-46.1 [place] % 6.7 % 4.3-13.2 Eo% 1.5 % 0.0-6.6 Bas% 0.8 % 0.0-1.1 Neut# 4.40 K/uL 1.0-7.0 Lymph # 2.39 K/uL 1.8-7.0 [place] # 0.50 K/uL 0.3-0.9 Eos # 0.11 K/uL 0.0-0.5 Baso # 0.06 K/uL 0.0-0.1 Influenza A & B Antigen 10/24/2014 Influenza A Antigen Negative (Negative ) Influenza B Antigen Negative (Negative) 26 H Pylori,Igm,Igg,Iga 04/26/2014 Helicobacter Pylori, 1.1 units 0.0-8.9 27 Antibodys Iga Abs Helicobacter Pylori, Igg <0.9 U/mL 0.0-0.8 28 Helicobacter Pylori, Igm Abs 1.6 units 0.0-8.9 29 Comprehensive Metabolic Panel 04/26/2014 Alb/Glob 0.8 ratio [...] 84 mg/dL 76-115 If >60 mL/min >60 30 Potassium 3.7 mmol/L 3.5-5.1 SGPT/Alt 35 U/L 30-65 Sgot/Ast 20 U/L 16-40 Sodium 139 mmol/L 136-145 Total Protein 8.3 g/dL High 6.3-8.0 Laboratory test finding 04/26/2014 Urine Culture See Note 31 Affirm 04/26/2014 Lilia Negative 32 Gardnerella Negative Trichomonas Negative Throat-Beta Strept 04/02/2014 Throat Beta Strep (See Note) 33 Culture Laboratory test finding 03/24/2014 Free T4 1.07 ng/dL 0.71-1.85 Thyroid Stim Hormone 0.97 uIU/mL 0.49-4.67 Urine Screen 12/30/2013 Urine Bilirubin - Dipstick Negative Negative Urine Blood Negative Negative Urine Clarity SL Cloudy Clear Urine Color Yellow Yellow Urine Glucose - Dipstick Negative mg/dL Negative Urine Ketone Negative mg/dL Negative Urine Leuk Esterase Negative Negative Urine Nitrite - Dipstick Negative Negative Urine PH 6.0 Low 6.5-7.5 Urine Protein - Dipstick Negative mg/dL Negative Urine Specific [place] >=1.030 1.010-1.030 Urine Urobilinogen - Dipstick 0.2 E.U./dL 0.2-1.0 Laboratory test finding 12/30/2013 Bas% 0.5 % 0.0-1.1 Baso # 0.06 K/uL 0.0-0.1 Eo% 1.4 % 0.0-6.6 Eos # 0.16 K/uL 0.0-0.5 Hematocrit 41.3 % 36.0-46.1 Hemoglobin 14.3 gm/dL 11.6-15.8 Lipase 137 U/L 28-380 34 Lymph # 3.14 K/uL 0.8-3.4 Lymph % 26.6 % 17.0-46.1 Mean Cell Volume 87.7 fl 80.9-99.0 Mean Corpuscular HGB 30.4 pg 25.9-32.7 Mean Corpuscular HGB Conc 34.6 g/dL High 30.8-34.3 Mean Platelet Volume 10.0 fL 8.9-12.4 [place] # 0.69 K/uL 0.3-0.9 [place] % 5.8 % 4.3-13.2 Neut# 7.77 K/uL High 1.0-7.0 Neut% 65.7 % 40.4-72.8 Platelet Count 413 K/uL High 155-360 Red Blood Count 4.71 M/uL 3.90-5.40 Red Cell Distri Width %CV 13.0 % 11.7-14.4 Red Cell Distri Width SD 40.3 fl 3-47 White Blood Count 11.8 K/uL High 3.1-10.7 Comprehensive Metabolic Panel 12/30/2013 Alb/Glob 1.0 ratio [...] 94 mg/dL 76-115 If >60 mL/min >60 35 Potassium 4.2 mmol/L 3.5-5.1 SGPT/Alt 28 U/L Low 30-65 Sgot/Ast 28 U/L 16-40 Sodium 138 mmol/L 136-145 Total Protein 8.5 g/dL High 6.3-8.0 Chlamydia/GC [place], Urine 12/30/2013 Chlamydia Trachomatis,Ur Negative Negative -[place] Neisseria Gonorrhoeae,Ur -[place] Negative Negative Urine note: See Note 36 1 R35.0 2 URINE, CLEAN CATCH 3 NO GROWTH: FINAL REPORT 4 SEVERE RT ABDOMINAL PAIN AND VOMITING 5 URINE, CLEAN CATCH 6 Note: Persistent reduction for 3 months or more in an eGFR <60 mL/min/1.73 m2 defines CKD. Patients with eGFR values >/=60 mL/min/1.73 m2 may also have CKD if evidence of persistent proteinuria is present. The original MDRD equation for estimated GFR is not valid for patients less than 18 years of age. Additional information may be found at [email or web address]. 7 Method: Quidel QuickVue One-Step Immunoassay 8 Plastic Surgery Assistant: [id number] DONNELL BURR 9 A09 10 NO GROWTH: FINAL REPORT 11 NO GROWTH: FINAL REPORT 12 Note: Persistent reduction for 3 months or more in an eGFR <60 mL/min/1.73 m2 defines CKD. Patients with eGFR values >/=60 mL/min/1.73 m2 may also have CKD if evidence of persistent proteinuria is present. The original MDRD equation for estimated GFR is not valid for patients less than 18 years of age. Additional information may be found at [email or web address]. 13 Note: Persistent reduction for 3 months or more in an eGFR <60 mL/min/1.73 m2 defines CKD. Patients with eGFR values >/=60 mL/min/1.73 m2 may also have CKD if evidence of persistent proteinuria is present. The original MDRD equation for estimated GFR is not valid for patients less than 18 years of age. Additional information may be found at [email or web address]. 14 Instrument flagged sample for slide review. Less than 10% Bands seen, no other immature WBC's seen. RBC morphology essentially normal. Platelet estimate=NORMAL 15 FIRST MORNING SPECIMENS GENERALLY CONTAIN THE HIGHEST CONCENTRATION OF HCG AND ARE RECOMMENDED FOR EARLY DETECTION OF . 16 12/12/15 LAB.TOW Deleted by Reflex Group UACOM 17 Note: Persistent reduction for 3 months or more in an eGFR <60 mL/min/1.73 m2 defines CKD. Patients with eGFR values >/=60 mL/min/1.73 m2 may also have CKD if evidence of persistent proteinuria is present. The original MDRD equation for estimated GFR is not valid for patients less than 18 years of age. Additional information may be found at [email or web address]. 18 Note: Persistent reduction for 3 months or more in an eGFR <60 mL/min/1.73 m2 defines CKD. Patients with eGFR values >/=60 mL/min/1.73 m2 may also have CKD if evidence of persistent proteinuria is present. The original MDRD equation for estimated GFR is not valid for patients less than 18 years of age. Additional information may be found at [email or web address]. 19 FIRST MORNING SPECIMENS GENERALLY CONTAIN THE HIGHEST CONCENTRATION OF HCG AND ARE RECOMMENDED FOR EARLY DETECTION OF . 20 09/04/15 LAB.DWM Deleted by Reflex Group UACOM 21 Note: Persistent reduction for 3 months or more in an eGFR <60 mL/min/1.73 m2 defines CKD. Patients with eGFR values >/=60 mL/min/1.73 m2 may also have CKD if evidence of persistent proteinuria is present. The original MDRD equation for estimated GFR is not valid for patients less than 18 years of age. Additional information may be found at [email or web address]. 22 Note: Persistent reduction for 3 months or more in an eGFR <60 mL/min/1.73 m2 defines CKD. Patients with eGFR values >/=60 mL/min/1.73 m2 may also have CKD if evidence of persistent proteinuria is present. The original MDRD equation for estimated GFR is not valid for patients less than 18 years of age. Additional information may be found at [email or web address]. 23 Acceptable specimens for this test are male urethral swab, endocervical swab and liquid based pap specimens, vaginal swabs in APTIMA transports and first void urine. See online Directory of Services for test number for rectal and pharyngeal specimens. Performed at: [address] [id number] Fish And Game Warden: Myesha Saab MD, Phone: [phone] 24 FIRST MORNING SPECIMENS GENERALLY CONTAIN THE HIGHEST CONCENTRATION OF HCG AND ARE RECOMMENDED FOR EARLY DETECTION OF . 25 Acceptable specimens for this test are male urethral swab, endocervical swab and liquid based pap specimens, vaginal swabs in Aptima transports and first void urine. See online Directory of Services for test number for rectal and pharyngeal specimens. [facility]formed [facility]: [facility] [id number] [employer] And Game Warden: Myesha Saab MD, Phone: [phone] 26 Please Note: A POSITIVE result for influenza [...] FDA-cleared influenza A and B molecular assay. 27 Negative <9.0 Equivocal 9.0 - 11.0 Positive >11.0 28 Negative <0.9 Indeterminate 0.9 - 1.0 Positive >1.0 29 Negative <9.0 Equivocal 9.0 - 11.0 Positive >11.0 This test was developed and its performance characteristics determined by [facility]. It has not been cleared or approved by the Food and Drug Administration. Results of this test are for investigational purposes only. The result should not be used as a diagnostic procedure without confirmation of the diagnosis by another medically diagnostic product or procedure. Performed at: [facility] [id number] Fish And Game Warden: Myesha Saab MD, Phone: [phone] 30 Note: Persistent reduction for 3 months or more in an eGFR <60 mL/min/1.73 m2 defines CKD. Patients with eGFR values >/=60 mL/min/1.73 m2 may also have CKD if evidence of persistent proteinuria is present. The original MDRD equation for estimated GFR is not valid for patients less than 18 years of age. Additional information may be found at [email or web address]. 31 COLONY COUNT ! 80,000-100,000 CFU/ml Organism 1 ! URETHRAL RYDER 32 [facility] [address] [place] [address], [address] [place] [address] AFFIRM VAGINOSIS / VAGINITIS REPORT Name: Lorraine Espinal : 1980 (Age: 33) Sex: F Location: [facility]. Rec. # Date Collected: 04/26/2014 Billing #: [id number] Date Received: 04/26/2014 Physician(s): ANUSHA SINGH Source of Specimen: Vaginal Results: Lilia species DNA Probe NEGATIVE Gardnerella vaginalis DNA Probe NEGATIVE Trichomonas vaginalis DNA Probe NEGATIVE Reported: 04/27/2014 Electronic Signature kt Kelin [facility] ICD-9 Codes: 616.10 33 RUN DATE: 04/04/[address] [facility] LAB LIVE PAGE 1 RUN TIME: [address] [place] [id number] Specimen Inquiry ----- Name: LORRAINE ESPINAL : [address]: Gigi Kahn DO Acct: [id number] Unit: [id number] AGE: 33 Location: [facility] Re04/02/14 SEX: F Status: DEP ER ----- SPEC: [id number] NERY: 04/02/14-[address] [facility] [address]: Gigi Khan DO REQ: [id number] RECD: 04/02/14-124 STATUS: TRUMAN DOMINGUEZ DR: [facility] Jie KATZ _ SOURCE: THROAT SPDESC: ORDERED: Throat Beta Str ----- Procedure Result Verified Site ----- Throat Beta Strep Culture Final 04/04/14-918 ML Negative For Group A Beta Streptococcus ----- END OF REPORT * ML=Testing performed at Main Lab DEPARTMENT OF PATHOLOGY, [address] [place] [address] Jim Alatorre M.D. Director [facility] # [id number] 34 SPECIMEN IS SLIGHTLY HEMOLYZED 35 Note: Persistent reduction for 3 months or more in an eGFR <60 mL/min/1.73 m2 defines CKD. Patients with eGFR values >/=60 mL/min/1.73 m2 may also have CKD if evidence of persistent proteinuria is present. The original MDRD equation for estimated GFR is not valid for patients less than 18 years of age. Additional information may be found at [email or web address]. 36 Acceptable specimens for this test are male urethral swab, endocervical swab and liquid based pap specimens, vaginal swabs in APTIMA transports and first void urine. See online Directory of Services for test number for rectal and pharyngeal specimens. Performed at: RN - [facility] [address] [id number] Fish And Game Warden: Myesha Saab MD, Phone: [phone] Procedures Date CPT Code Description Status 01/23/2017 90900 Theraputic Or Diagnostic Injection Completed 08/15/2016 02733 Theraputic Or Diagnostic Injection Completed 08/01/2016 66754 Theraputic Or Diagnostic Injection Completed Encounters Type Date Location Provider CPT E/M Dx Office Visit 12/29/2017 2:20p [place] [address] R30.0 B37.3 Office Visit 11/26/2017 9:00a Primary Care Office James Dumont, 20368 J11.1 Eileen R50.81 Office Visit 10/20/2017 2:30p Primary Care Office Jie Vyas, 20878 M62.830 [facility] G43.009 Office Visit 10/07/2017 9:00a Primary Care Office Jie Vyas 20748 J01.90 [facility] R05 Office Visit 09/01/2017 2:30p Primary Care Office Jie Vyas, 74313 R05 RPA Office Visit 05/19/2017 2:00p Primary Care Office Jie Vyas, 57225 J01.90 RPA Office Visit 04/03/2017 2:45p Primary Care Office Jie Vyas 89654 F43.23 RPA Office Visit 02/20/2017 10:00a Primary Care Office Jie Vyas 62960 J02.9 RPA J06.9 Office Visit 01/23/2017 1:30p Primary Care Office Jie Vyas 70028 G43.009 [facility] Office Visit 11/18/2016 9:45a Primary Care Office Jie Vyas 75105 J01.90 [facility] Office Visit 10/21/2016 2:00p Primary Care Office Jie Vyas, 85120 A09 RPA Office Visit 08/15/2016 10:15a Primary Care Office Jie Vyas, 34881 G43.009 [facility] F43.23 Z23 Office Visit 08/01/2016 11:15a Primary Care Office Jie Vyas, 44332 G43.009 [facility] F43.23 Office Visit 01/19/2016 9:45a Primary Care Office Jie Vyas, [facility] 77379 N80.9 R10.84 Office Visit 12/27/2015 1:45p Primary Care Office Jie Vyas, 86668 R10.84 [facility] A09 Office Visit 11/07/2015 1:00p Primary Care Office Jie Vyas, [facility] 72566 Z23 R53.81 H81.10 Office Visit 10/18/2015 1:30p Primary Care Office Jie Vyas, 00277 G43.009 [facility] Office Visit 08/24/2015 10:15a Primary Care Office Jie Vyas, 20602 J01.90 [facility] Office Visit 05/19/2015 1:15p Primary Care Office Jie Vyas, 45452 380.10 [facility] 780.60 Office Visit 04/06/2015 9:45a Primary Care Office Jie Vyas, 19191 789.07 [facility] Office Visit 03/23/2015 1:15p Primary Care Office Jie Vyas, 34292 786.2 [facility] Plan of Care Future Appointment(s):05/01/2018 9:30 am - Catarina Rob MS, MAPPING TECHNICIAN-C, CNM at [facility] Evqnam6504/27/2018 - Catarina Rob MS, ROSELYN, CNMJ02.9 Acute pharyngitis, unspecifiedComments:Gargle with warm salt water, Tylenol, or Motrin for pain.R11.2 Nausea with vomiting, unspecifiedComments:Patient advised to take frequent sips of fluids. If unable to void, go to ER for dehydration Patientoffered rectal Tylenol or ibuprofen for pain, temperature; however, did not want them at this time. Patient advised to call back if she changes her mind.J11.2 Influenza due to unidentified influenza virus w GI manifestNew Medication:Ondansetron HCL 8 mgComments:Patient to rest, ibuprofen or Tylenol, call back if worsening.Follow up:Patient will need note [facility]OW for 5 days with follow up this Friday office visit. Script for Viviane
--- OUTSIDE RECORDS SUMMARY | 2018-05-17 08:25 | XMS REPORT ---
:1980 External Reference #:[id number] Author Organization [facility] 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 Jie Vyas RPAC Primary Care Physician Unavailable Payers Type Date Identification Numbers Payment Provider Subscriber Commercial Effective: Policy Number: [id number] [employer] Medicaid Lorraine Espinal 2015 PayID: [id number] [address] [place] [address] Medicaid Policy Number: [id number] Medicaid Lorraine Espinal Group Name: 1 1 [address] PayID: [id number] [place] [address] Problems Date Description Provider Status Onset: 09/01/2013 Endometriosis (clinical) Jie Vyas [facility] Active Onset: 01/04/2013 Depressive disorder Jie Vyas [facility] Active Onset: 09/24/2011 Plantar fascial fibromatosis Citlalli Dominique, FRANCIS[place] Active Onset: 03/23/2015 Migraine Jie Vyas [facility] Active Onset: 09/04/2015 Steatosis of liver Jie Vyas [facility] Active Onset: 12/18/2017 Degenerative joint disease involving Jie Vyas [facility] Active multiple joints Note: knee Onset: 01/08/2018 Mixed hyperlipidemia Jie Vyas [facility] Active Onset: 01/08/2018 Vitamin D deficiency Jie Vyas [facility] Active Onset: 04/10/2018 Increased frequency of urination Adarsh Leon M.D. Active Onset: 11/26/2017 Influenza with respiratory James Steencken, M.D. 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 three times a day after meals for 2 days (generic [place]) Ciprofloxacin 04/10 Active Tablets 250mg 6tabs take 1 R30.0 Andras HCL /2017 tablet Carolyn, twice M.D. daily for 3 days Sumatriptan Active Tablets 100mg take 1/2 Saada, Succinate / - 1 Fahed tablet by mouth at onset of aura, may repeat in 2 hours Naproxen Active Tablets 500mg take one Saada, /0000 tablet by Fahed mouth twice a day with food as needed Phendimetrazine Active Tablets 35mg 1 tablet Reinoso, Tartrate twice MD Americo daily. Fluconazole 12/29 Hx Tablets 150mg 2tabs 1 tab by Jennifer mouth MD Alejandrina - once, 01/08 repeat needed. Monistat 7 12/29 Hx Cream 2% 1Tube apply to Jennifer Simply affected MD Alejandrina - area of 01/08 vaginal area one daily Methylprednisolo 12/23 Hx Tablets 4mg start 6 Unknown tabs on - day one 04/10 decrease by 1 tab each day until gone Oseltamivir 11/26 Hx Capsules 75mg 10caps 1 tab by J11.1 James mouth Steencken, - twice a M.D. 12/29 day for days Cyclobenzaprine 10/20 Hx Tablets 10mg 30tabs take 1 M62.830 Donato HCL tablet Foster, - every 8 M.D. 12/29 hours muscle spasm as needed Cefuroxime 10/07 Hx Tablets 500mg 28tabs 1 tab by J01.90 Donato Axetil mouth Foster, - twice a M.D. Dulera 10/07 Hx Aerosol 100-5mcg/ sample 2 puffs Act twice a Foster, - day M.D. 04/10 Azithromycin 09/01 Hx Tablets 250mg 6tabs 2 tabs by mouth Foster, today, M.D. then one tab by mouth daily Benzonatate 09/01 Hx Capsules 200mg 30caps 1 cap by mouth Fosetr, three M.D. times a day cough Omeprazole 05/20 Hx Capsules 20mg 30caps Take One DR Capsule Foster, - By Mouth M.D. 04/10 Every No Active 05/19 Hx Unknown Medications - 05/19 Cephalexin 05/19 Hx Tablets 500mg 30tabs 1 tab (or J01.90 cap) by Foster, mouth M.D. three times a day Fluoxetine HCL 04/03 Hx Capsules 40mg 30caps 1 by F43.23 mouth Foster, every day M.D. Cephalexin 02/20 Hx Tablets 500mg 30tabs 1 tab (or J02.9 cap) by Foster, - mouth M.D. 04/03 times a day Magnesium-Oxide 02/10 Hx Tablets 400(241.3 90tabs 1 by mg) mg mouth Foster, every day M.D. Oxycodone HCL 01/23 Hx Tablets 10mg 30tabs 1 tab by mouth Foster, - every 6-8 M.D. 18 hours needed migraine pain ::: Bactrim DS 11/22 Hx Tablets 800-160mg 20tabs 1 tab by J01.90 Donato mouth Foster, - twice a M.D. Amoxicillin 11/18 Hx Tablets 875mg 14tabs 1 tab by J01.90 Donato mouth Foster, - twice a M.D. Fluconazole 11/18 Hx Tablets 150mg 1tabs 1 tab by J01.90 Donato mouth Foster, - today M.D. 01/23 Frovatriptan 08/23 Hx Tablets 2.5mg 18tabs 1 tab po G43.009 Pedro E. Succinate at [facility] - of , 11/18 repeat in 2 hrs, or at 4 hrs if necessary Diclofenac 08/[address] 75mg 60tabs take one Pedro E. Sodium tablet by [facility] - mouth 11/18 twice a day with food for pain Rizatriptan 08/15 Hx Tablets 10mg 14tabs 1 by G43.009 Pedro Murillo. Benzoate mouth at [facility] - start of 08/23 farfan/auraFebruary repeat in 2 hours Fluoxetine HCL 08/15 Hx Capsules 20mg 30caps Take One F43.23 Capsule Foster, - By Mouth M.D. 04/03 Every Fluoxetine HCL 08/01 Hx Capsules 10mg 30caps 1 by F43.23 Pedro E. mouth [facility] - every day 08/15 Hydroxyzine HCL 08/01 Hx Tablets 10mg 60tabs take one F43.23 Pedro E. tablet by [facility] every 4 hours as needed for anxiety, may use 2 tabs [facility] Escitalopram 02/04 Hx Tablets 10mg 30tabs Take One Pedro Lidia. Oxalate Tablet By [facility] - Mouth 08/04 Every Work Note 12/27 Hx May Pedro Wiggins return to [facility] work on 08/0401/22/2016 ....no restricti ons Metronidazole 12/26 Hx Tablets 500mg 21tabs 1 tab by A09 Pedro Wiggins mouth [facility] - three 01/03 times a day Ondansetron HCL 12/26 Hx Tablets 8mg 14tabs take 1 A09 Pedro Wiggins tablet by [facility] mouth every 8 hours as needed for nausea Meclizine HCL 11/07 Hx Tablets 12.5mg 30tabs one-two H81.10 Pedro Wiggins tabs Justin DO - every 6 16 hour by mouth as needed dizziness Multivital-M 11/07 Hx Tablets 90tabs 1 by Pedro Wiggins mouth Justin DO every day Cephalexin 11/01 Hx Capsules 500mg 30caps 1 cap ( Pedro Wiggins /2015 or tab) Justin DO - by mouth 11/12 three times a day Naprosyn 10/20 Hx Tablets 500mg 1 by mouth - twice a 11/07 day after meals Naproxen Kit 10/19 Hx Tablets 500mg 30tabs 2 Times A Day prn - headache 08/15 Note For Work 10/18 Hx Evaluated Lois3Jerome Wiggins at [facility] - Primary 11/07 Care for acute migraine headache. Please excuse Ondansetron 10/18 Hx Tablets 8mg 30tabs 1 tab by G43.Chandan Wiggins Dispers mouth Justin DO - every 8 01/02 hours as needed nausea/mi graine Oxycodone HCL 10/18 Hx Capsules 5mg 30caps 1 cap by Lois3.Chandan Wiggins mouth Justin DO - every 4 10/21 hours needed migraine farfan ::: Reference #: [id number] Sumatriptan 10/18 Hx Tablets 100mg 9tabs one by Lois3Jerome Wiggins Succinate mouth at Justin DO - Onset of 08/15 headache, February repeat in 2 hours Diflucan 09/22 Hx Tablets 150mg 2tabs 1 tab by Pedro Wiggins mouth x 1 Justin DO - for yeast 10/18 vaginitis Anexsia 09/04 Hx Tablets 5-325mg 15tabs Every 4 Hours as - Needed 10/18 prn Pain Ondansetron HCL 09/04 Hx Tablets 4mg 15tabs Every 8 Hours as - Needed 10/18 prn Nausea Cephalexin 08/24 Hx Capsules 500mg 30caps 1 cap ( J01.90 Pedro Wiggins /2014 or tab) Justin DO - by mouth 09/22 times a day Mucinex 08/24 Hx Tablets ER 600mg 30tabs take two J01.90 Pedro Wiggins 12HR by mouth Justin DO - twice a 10/18 day congestio n Work Note 08/24 Hx Evaluated Pedro Wiggins for acute [facility] - illness 09/22 today at /2014 Primary Care. Please excuse Fluticasone 08/24 Hx Suspension 50mcg/Act 16units [place] 2 J01.90 Pedro Wiggins Propionate Sprays In [facility] - Each 05/19 Nostril /2016 Once Daily Neomycin/Polymyx 05/19 Hx Suspension 3.5-16143 7.500ml 3 drops 380.10 Pedro Wiggins in/Hydrocortison /2014 -1 to (L) [facility] e - ear four 08/24 times a day Cefuroxime 05/19 Hx Tablets 500mg 20tabs 1 tab by 380.10 Pedro Wiggins Axetil mouth [facility] - twice a Acetaminophen-Co 05/19 Hx Tablets 300-30mg 30tabs 1-2 by 380.10 Pedro Wiggins deine #3 mouth Justin DO - every 4 08/24 hours needed ... Nabumetone 04/06 Hx Tablets 750mg 30tabs take 2 789.07 Pedro Wiggins tablets Justin DO - by mouth 08/24 evening with food for abdl pain Azithromycin 03/23 Hx Tablets 250mg 6tabs 2 tabs by 786.2 Pedro Wiggins mouth [facility] today then one tab by mouth daily Benzonatate 03/23 Hx Capsules 200mg 30caps 1 cap by 786.2 Pedro Wiggins mouth [facility] three times a day as needed cough Fluticasone 02/20 Hx Suspension 50mcg/Act 2 sprays Katie Propionate intranasa Chiquita, - l every M.D. Lupron Depot 02/20 Hx Kit 30mg q 3 Katie months Chiquita, - per Dr Arellano 03/22 Reinoso /2014 Sumatriptan 02/20 Hx Tablets 100mg 1 tab by Katie Succinate mouth @ Chiquita, - start of M.D. 03/22 farfan, february repeat in 2 hours Escitalopram 02/20 Hx Tablets 10mg 30tabs Take One Katie Oxalate /2014 Tablet By Chiquita, - Mouth M.D. 03/22 Escitalopram 02/20 Hx Tablets 10mg 30tabs Take One Katie Oxalate /2014 Tablet By Chiquita, - Mouth M.D. 01/18 Omeprazole 02/20 Hx Capsules 20mg 30caps Take One Pedro Wiggins DR Milagros Anderson DO - By Mouth 04/03 Topiramate 02/20 Hx Tablets 25mg 90tabs take one Donato tab in Foster, the M.D. morning and three tablets by mouth at bedtime Flonase 11/16 Hx Suspension 50mcg/Act 16units 2 sprays Chiquita to each Katie, - nostril 03/22 Lupron Depot 10/12 Hx Kit 11.25mg per [place] Fluticasone Hx Suspension 50mcg/Act 2 sprays Unknown Propionate /0000 intranasa - l every Naproxen Sodium Hx Capsules 220mg as Needed Unknown /0000 - 10/18 Omeprazole Hx Capsules 20.6(20Ba 30caps Once Unknown Magnesium /0000 DR condon) mg Daily - 01/02 Calcium 600 + D Hx Tablets 600-200mg 2 by Unknown /0000 -Unit mouth - once 05/19 Hydrocodone Hx Solution 7.5-325mg Take 5 ML Unknown Bitartrate/Aceta /0000 /15ML By Mouth minophen - Every 6 01/23 Hours Pain Sore Throat Max Day 20ML Medications Administered in Office Medication Date Status Form Strength Qnty SIG Indications Ordering Provider Injection Administered Injection Jie Ketorolac 017 Brillion, Tromethamine 30 RPAC MG/mL (Toradol) Injection Administered Injection Jie Ketorolac 016 Brillion, Tromethamine 30 RPAC MG/mL (Toradol) Injection Administered Injection Jie Ketorolac 016 Brillion, Tromethamine 30 RPAC MG/mL (Toradol) Immunizations CPT Code Status Date Vaccine Lot # [id number] Given 08/15/2016 Tdap injection [id number] [id number] Given 11/07/2015 Influenza Vaccine (Fluzone) Age 3 And Older [id number] 88666 Given 07/25/2011 flu vaccination 08218 Given 10/19/2009 flu vaccination 44602 Given 10/19/2009 H1N1 Immuniation Adminstration 36754 Given 10/19/2009 H1N1 Immuniation Adminstration Vital Signs Date Vital Result Comment 04/10/2018 BP Systolic Sitting Right Arm 110 mmHg BP Diastolic Sitting Right Arm 74 mmHg Body Temperature 97.4 F Heart Rate 92 /min reg Respiratory Rate 18 /min Height 62.5 inches 5'2.50" Weight 180.00 lb BMI (Body Mass Index) 32.4 kg/m2 BSA (Body Surface Area) 1.84 m2 [place] body weight in kilograms 51 O2 % BldC Oximetry 98 % ra 12/29/2017 BP Systolic Sitting Right Arm 130 mmHg BP Diastolic Sitting Right Arm 82 mmHg Body Temperature 98.2 F Heart Rate 100 /min Height 62.5 inches 5'2.50" Weight 197.00 lb BMI (Body Mass Index) 35.5 kg/m2 BSA (Body Surface Area) 1.91 m2 [place] body weight in kilograms 51 11/26/2017 BP Systolic Sitting Right Arm 102 mmHg BP Diastolic Sitting Right Arm 60 mmHg Body Temperature 98.4 F Heart Rate 87 /min Height 62.5 inches 5'2.50" Weight 189.00 lb BMI (Body Mass Index) 34.0 kg/m2 BSA (Body Surface Area) 1.88 m2 [place] body weight in kilograms 51 O2 % BldC Oximetry 97 % ra 10/20/2017 BP Systolic Sitting Right Arm 118 mmHg BP Diastolic Sitting Right Arm 78 mmHg Heart Rate 92 /min Height 62.5 inches 5'2.50" Weight 195.00 lb BMI (Body Mass Index) 35.1 kg/m2 BSA (Body Surface Area) 1.90 m2 [place] body weight in kilograms 51 O2 % BldC Oximetry 97 % ra 10/07/2017 BP Systolic Sitting Right Arm 118 mmHg BP Diastolic Sitting Right Arm 68 mmHg Heart Rate 104 /min Height 62.5 inches 5'2.50" Weight 196.00 lb BMI (Body Mass Index) 35.3 kg/m2 BSA (Body Surface Area) 1.91 m2 [place] body weight in kilograms 51 O2 % BldC Oximetry 98 % 09/01/2017 Body Temperature 97.5 F Heart Rate 83 /min Respiratory Rate 18 /min Height 62.5 inches 5'2.50" Weight 189.00 lb BMI (Body Mass Index) 34.0 kg/m2 BSA (Body Surface Area) 1.88 m2 [place] body weight in kilograms 51 O2 % BldC Oximetry 98 % ra 05/19/2017 BP Systolic Sitting Right Arm 118 mmHg BP Diastolic Sitting Right Arm 82 mmHg Body Temperature 97.8 F Heart Rate 78 /min Respiratory Rate 18 /min Height 62.5 inches 5'2.50" Weight 192.00 lb BMI (Body Mass Index) 34.6 kg/m2 BSA (Body Surface Area) 1.89 m2 [place] body weight in kilograms 51 O2 % BldC Oximetry 98 % ra 04/03/2017 BP Systolic Sitting Right Arm 132 mmHg BP Diastolic Sitting Right Arm 72 mmHg Height 62.5 inches 5'2.50" Weight 192.00 lb BMI (Body Mass Index) 34.6 kg/m2 BSA (Body Surface Area) 1.89 m2 [place] body weight in kilograms 51 02/20/2017 BP Systolic Sitting Right Arm 128 mmHg BP Diastolic Sitting Right Arm 68 mmHg Body Temperature 97.8 F Height 62.5 inches 5'2.50" Weight 189.50 lb BMI (Body Mass Index) 34.1 kg/m2 BSA (Body Surface Area) 1.88 m2 [place] body weight in kilograms 51 01/23/2017 BP [...] Ketone NEGATIVE mg/dL Negative 1 Urine Specific [place] 1.020 1.010-1.030 1 Urine Blood NEGATIVE Negative [...] 6.5-7.5 Ua Blood negative Negative Ua Specific [place] 1.030 1.010-1.030 Ua Ketones trace Negative Ua [...] Ketone NEGATIVE mg/dL Negative 4 Urine Specific [place] >=1.030 1.010-1.030 4 Urine Blood NEGATIVE Negative [...] 4 Lymph % 32.0 % 20.0-42.0 4 [place] % 6.7 % 4.3-13.2 4 Eo% 1.6 % 0.0-6.6 4 Bas% 0.5 % 0.0-1.1 4 Neut# 4.96 K/uL 1.8-7.0 4 Lymph # 2.68 K/uL 1.0-4.0 4 [place] # 0.56 K/uL 0.3-0.9 4 Eos # [...] Color Ur 05/10/2017 Color Ur Yellow Yellow Basophils/leuk NFr Bld 05/10/2017 Basophils/leuk NFr Bld 0.5 0.0-1.1 Auto Auto Blood erythrocytes 05/10/2017 Blood erythrocytes 4.54 3.90-5.40 automated count automated count (number/volume) (number/volume) Blood hemoglobin 05/10/2017 Blood hemoglobin 13.7 11.6-15.8 measurement measurement (mass/volume) (mass/volume) Blood monocytes 05/10/2017 Blood monocytes 0.56 0.3-0.9 automated count automated count (number/volume) (number/volume) Co2 SerPl-sCnc 05/10/2017 Co2 SerPl-sCnc 26 21-32 Calcium SerPl-mCnc 05/10/2017 Calcium SerPl-mCnc 8.9 8.5-10.1 Chloride SerPl-sCnc 05/10/2017 Chloride SerPl-sCnc 107 98-107 Xray 02/28/2017 Foot, 2 Views, Left <pending> [...] 9 Lymph % 30.9 % 20.0-42.0 9 [place] % 6.2 % 4.3-13.2 9 Eo% 1.6 % 0.0-6.6 9 Bas% 0.3 % 0.0-1.1 9 Neut# 5.38 K/uL 1.8-7.0 9 Lymph # 2.73 K/uL 1.0-4.0 9 [place] # 0.55 K/uL 0.3-0.9 9 Eos # [...] 73-393 9 Amylase 63 U/L 25-115 9 Blood Culture 12/27/2015 Blood Culture Aerobic See Note 10 Blood Culture Anaerobic See Note 11 Laboratory test finding 12/27/2015 Aerobic Blood Culture No Growth: Final Report Anaerobic Blood Culture No Growth: Final Report Laboratory test 12/27/2015 Cryptosporidium Antigen Negative For finding Cryptosporidium Specific Antigen Giardia Antigen (Hal) Negative For Giardia Specific Antigen. Shiga Toxin Test Shiga Toxin 1 Not Detected Stool Culture Organism: No Enteric Pathogens Isolated Laboratory test finding 12/26/2015 Carbon Dioxide Level 28 21-32 RDW Coefficient of Variation 12.5 11.7-14.4 Sodium Level 139 136-145 Urine Bilirubin Negative Negative Urine Glucose (Ua) Negative Negative Urine Ketones Negative Negative Urine Leukocyte Esterase Negative Negative Urine Nitrite Negative Negative Urine Protein Negative Negative Urine Urobilinogen 0.2 0.2-1.0 Urine Screen 12/26/2015 Urine Color YELLOW Yellow Urine Clarity SL CLOUDY Clear Urine Glucose - Dipstick NEGATIVE mg/dL Negative Urine Bilirubin - Dipstick NEGATIVE Negative Urine Ketone NEGATIVE mg/dL Negative Urine Specific [place] >=1.030 1.010-1.030 Urine Blood NEGATIVE Negative Urine [...] U/L 12-78 Alkaline Phosphatase 95 U/L 45-117 Comprehensive Metabolic Panel 12/12/2015 Glucose 99 mg/dL [...] % 40.4-72.8 Lymph % 31.0 % 17.0-46.1 [place] % 5.9 % 4.3-13.2 Eo% 1.5 % 0.0-6.6 Bas% 0.4 % 0.0-1.1 Neut# 6.85 K/uL 1.8-7.0 Lymph # 3.47 K/uL 1.8-7.0 [place] # 0.66 K/uL 0.3-0.9 Eos # 0.17 [...] Urine Ketone NEGATIVE mg/dL Negative Urine Specific [place] >=1.030 1.010-1.030 Urine Blood LARGE High Negative [...] Urine Ketone NEGATIVE mg/dL Negative Urine Specific [place] 1.020 1.010-1.030 Urine Blood NEGATIVE Negative Urine [...] Urine Ketone NEGATIVE mg/dL Negative Urine Specific [place] 1.025 1.010-1.030 Urine Blood NEGATIVE Negative Urine [...] % 40.4-72.8 Lymph % 33.0 % 17.0-46.1 [place] % 5.5 % 4.3-13.2 Eo% 1.5 % 0.0-6.6 Bas% 0.7 % 0.0-1.1 Neut# 5.19 K/uL 1.8-7.0 Lymph # 2.88 K/uL 1.8-7.0 [place] # 0.48 K/uL 0.3-0.9 Eos # 0.13 K/uL 0.0-0.5 Baso # 0.06 K/uL 0.0-0.1 Laboratory test finding 12/04/2015 Basophils # (Auto) [...] Phosphatase 97 U/L 45-117 Laboratory test finding 11/23/2015 Thyroid Stim Hormone [...] % 40.4-72.8 Lymph % 38.3 % 17.0-46.1 [place] % 5.8 % 4.3-13.2 Eo% 1.5 % 0.0-6.6 Bas% 0.5 % 0.0-1.1 Neut# 5.01 K/uL 1.8-7.0 Lymph # 3.57 K/uL 1.8-7.0 [place] # 0.54 K/uL 0.3-0.9 Eos # 0.14 K/uL 0.0-0.5 Baso # 0.05 K/uL 0.0-0.1 Laboratory test finding 09/04/2015 Urine HCG (Qualitative) NEGATIVE Negative 19 Urinalysis With 09/04/2015 Urine Color YELLOW Yellow Microscopic Urine Clarity CLEAR Clear Urine Glucose - Dipstick NEGATIVE mg/dL Negative Urine Bilirubin - Dipstick NEGATIVE Negative Urine Ketone TRACE mg/dL High Negative Urine Specific [place] 1.025 1.010-1.030 Urine Blood LARGE High Negative [...] % 40.4-72.8 Lymph % 31.9 % 17.0-46.1 [place] % 5.5 % 4.3-13.2 Eo% 1.4 % 0.0-6.6 Bas% 0.4 % 0.0-1.1 Neut# 6.03 K/uL 1.0-7.0 Lymph # 3.17 K/uL 1.8-7.0 [place] # 0.55 K/uL 0.3-0.9 Eos # 0.14 [...] High 40.4-72.8 Lymph % 17.7 % 17.0-46.1 [place] % 6.0 % 4.3-13.2 Eo% 0.7 % 0.0-6.6 Bas% 0.2 % 0.0-1.1 Neut# 9.49 K/uL High 1.0-7.0 Lymph # 2.23 K/uL 1.8-7.0 [place] # 0.76 K/uL 0.3-0.9 Eos # 0.09 [...] Urine Ketone NEGATIVE mg/dL Negative Urine Specific [place] 1.025 1.010-1.030 Urine Blood NEGATIVE Negative Urine [...] % 40.4-72.8 Lymph % 32.0 % 17.0-46.1 [place] % 6.7 % 4.3-13.2 Eo% 1.5 % 0.0-6.6 Bas% 0.8 % 0.0-1.1 Neut# 4.40 K/uL 1.0-7.0 Lymph # 2.39 K/uL 1.8-7.0 [place] # 0.50 K/uL 0.3-0.9 Eos # 0.11 [...] - Dipstick Negative mg/dL Negative Urine Specific [place] >=1.030 1.010-1.030 Urine Urobilinogen - Dipstick 0.2 [...] 30.8-34.3 Mean Platelet Volume 10.0 fL 8.9-12.4 [place] # 0.69 K/uL 0.3-0.9 [place] % 5.8 % 4.3-13.2 Neut# 7.77 K/uL [...] 7 Method: Quidel QuickVue One-Step Immunoassay 8 Firebreak Cutter: [id number] DONNELL AMINAH 9 A09 10 NO GROWTH: FINAL REPORT [...] 20 09/04/15 LAB.DWM Deleted by [facility]lex [facility] [place] 21 Note: Persistent reduction for 3 months [...] and pharyngeal specimens. Performed at: RN - [facility] [id number] Textile Conversion Manager: Myesha Saab MD, Phone: [phone] FIRST MORNING SPECIMENS GENERALLY CONTAIN THE HIGHEST CONCENTRATION OF HCG AND ARE RECOMMENDED FOR EARLY DETECTION OF . 25 Acceptable specimens for this test are male urethral swab, endocervical swab and liquid based pap specimens, vaginal swabs in Aptima transports and first void urine. See online Directory of Services for test number for rectal and pharyngeal specimens. Performed at: RN - [facility] [place] [address], [place], [place] [id number] Textile Conversion Manager: Myesha Saab MD, Phone: [phone] 26 Please Note: A POSITIVE result for [...] developed and its performance characteristics determined by [facility]. It has not been cleared or approved by the Food and Drug Administration. Results of this test are for investigational purposes only. The result should not be used as a diagnostic procedure without confirmation of the diagnosis by another medically diagnostic product or procedure. Performed at: [address] [id number] Textile Conversion Manager: Myesha Saab MD, Phone: [phone] Note: Persistent reduction for 3 months [...] ! URETHRAL RYDER 32 [facility] [address] [place] [address], [address] [place] [address] AFFIRM VAGINOSIS / VAGINITIS REPORT Name: Lorraine Espinal : 1980 (Age: 33) Sex: F Location: [facility] Med. Rec. # Date Collected: 04/26/2014 Billing #: [id number] Date Received: 04/26/2014 Physician(s): ANUSHA ISNGH Source of Specimen: Vaginal Results: Lilia species DNA Probe NEGATIVE Gardnerella vaginalis DNA Probe NEGATIVE Trichomonas vaginalis DNA Probe NEGATIVE Reported: 04/27/2014 Electronic Signature alphonso Romo [facility] ICD-9 Codes: 616.10 33 RUN DATE: 04/04/14 [facility] LAB LIVE PAGE 1 RUN TIME: [address] [place] [id number] Specimen Inquiry ----- Name: LORRAINE ESPINAL : [address]: Gigi Khan DO Acct: [id number] Unit: [id number] AGE: 33 Location: [facility] Re04/02/14 SEX: F Status: DEP ER ----- SPEC: [id number] NERY: 04/02/14-58 [facility] DR: Gigi Khan DO REQ: [id number] RECD: 04/02/141242 STATUS: TRUMAN DOMINGUEZ DR: [facility] Jie KATZ _ SOURCE: THROAT SPDESC: ORDERED: Throat Beta Str ----- Procedure Result Verified Site ----- Throat Beta Strep Culture Final 04/04/14-918 ML Negative For Group A Beta Streptococcus ----- END OF REPORT * ML=Testing performed at Main Lab DEPARTMENT OF PATHOLOGY, [address] [place] [address] Jim Alatorre M.D. Director [facility] # [id number] SPECIMEN IS SLIGHTLY HEMOLYZED 35 Note: [...] for rectal and pharyngeal specimens. Performed at: CLAUDINE - [facility] [id number] Textile Conversion Manager: Myesha Saab MD, Phone: [phone] Procedures Date CPT Code Description Status 01/23/2017 78340 Theraputic Or Diagnostic Injection Completed 08/15/2016 53920 Theraputic Or Diagnostic Injection Completed 08/01/2016 87059 Theraputic Or Diagnostic Injection Completed Encounters Type Date Location Provider CPT E/M Dx Office Visit 12/29/2017 2:20p [place] [address] R30.0 B37.3 Office Visit 11/26/2017 9:00a Primary Care Office James Sloansteve, 36945 J11.1 M.Terrance R50.81 Office Visit 10/20/2017 2:30p Primary Care Office Jie Lilliam, 66857 M62.830 RPA G43.009 Office Visit 10/07/2017 9:00a Primary Care Office Jie Lilliam, 32397 J01.90 RPA R05 Office Visit 09/01/2017 2:30p Primary Care Office Jiejorge Vyas, 13477 R05 RPA Office Visit 05/19/2017 2:00p Primary Care Office Jie Brillion, 95303 J01.90 RPAC Office Visit 04/03/2017 2:45p Primary Care Office Jie Brillion, 29371 F43.23 RPA Office Visit 02/20/2017 10:00a Primary Care Office Jie Brillion, 88019 J02.9 RPAC J06.9 Office Visit 01/23/2017 1:30p Primary Care Office Jie Brillion, 87496 G43.009 RPA Office Visit 11/18/2016 9:45a Primary Care Office Jie Brillion, 17798 J01.90 RPAC Office Visit 10/21/2016 2:00p Primary Care Office Jie Brillion, 06529 A09 RPA Office Visit 08/15/2016 10:15a Primary Care Office Jie Brillion, 68590 G43.009 [facility] F43.23 Z23 Office Visit 08/01/2016 11:15a Primary Care Office Jie Lilliam, 06316 G43.009 RPAC F43.23 Office Visit 01/19/2016 9:45a Primary Care Office Jie Vyas [facility] 67679 N80.9 R10.84 Office Visit 12/27/2015 1:45p Primary Care Office Jie Vyas, 03407 R10.84 [facility] A09 Office Visit 11/07/2015 1:00p Primary Care Office Jie Vyas, [facility] 49587 Z23 R53.81 H81.10 Office Visit 10/18/2015 1:30p Primary Care Office Jie Vyas, 91739 G43.009 [facility] Office Visit 08/24/2015 10:15a Primary Care Office Jie Vyas, 40353 J01.90 [facility] Office Visit 05/19/2015 1:15p Primary Care Office Jie Vays, 39847 380.10 [facility] 780.60 Office Visit 04/06/2015 9:45a Primary Care Office Jie Vyas, 37849 789.07 [facility] Office Visit 03/23/2015 1:15p Primary Care Office Jie Vyas, [phone] [facility] Plan of Care 04/10/2018 - Adarsh Leon M.D.R35.0 Frequency of micturitionFollow up:f/u with Jie as per appt.R30.0 DysuriaNew Medication:Pyridium 200 mgCiprofloxacin HCL 250 mg
[2018-05-17 08:28] VITALS: BP 137/79
[2018-05-17] MEDS ORDERED: Albuterol 2.5 MG/3 ML NEB.SOL* (0.083%) INH ONE (08:38)
[2018-05-17] MEDS ORDERED: predniSONE TAB* 20 MG PO ONE (08:38)
--- NOTE | 2018-05-17 08:59 | RAD ---
INDICATION: Cough for one month. COMPARISON: Comparison is made with a prior study from August 09, 2014. TECHNIQUE: Dual-energy PA and lateral views of the chest were obtained. FINDINGS: The heart is within normal limits in size. Mediastinal and hilar contours appear within normal limits. The lungs are clear. No pleural effusion is present. IMPRESSION: NO EVIDENCE FOR ACTIVE CARDIOPULMONARY DISEASE.
--- NOTE | 2018-05-17 09:00 | UC ---
General HPI - HPI Summary HPI Summary: Patient reports being ill for the past month. This began in early April specifically April 10 she presented to her primary care with a fever and cough. Because the fever was high she was tested for the flu and it was positive. Since then, she's had ongoing issues with sinus congestion, chest congestion and cough. She has followed up with her primary care and has been treated on to separate occasions with antibiotics. One was for her sinuses and the second was for her lungs. Each time she got a little bit better but then her symptoms recurred. She was also treated with Tylenol with Codeine for the persistent cough. She presents to us today for worsening cough and some chest congestion. In addition, she has developed laryngitis and secondary sore throat from all the coughing both began yesterday. She denies associated shortness breath, wheezing, history of smoking and asthma. 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 Prior to this she had good health. - History of Current Complaint Chief Complaint: UCGeneralIllness Stated Complaint: SORE THROAT, COUGH Time Seen by Provider: 05/17/18 08:28 Hx Obtained From: Patient Hx Last Menstrual Period: n/a Onset/Duration: Gradual Onset Timing: Constant Pain Intensity: 2 Aggravating: nothing Associated Signs & Symptoms: Positive: Cough. Negative: Chest Pain, Diarrhea, Fever, Headache, Nausea, SOB, Vomiting, Wheezing - Allergy/Home Medications Allergies/Adverse Reactions: Allergies Allergy/AdvReac Type Severity Reaction Status Date / Time No Known Allergies Allergy Verified 05/17/18 08:25 Home Medications: Home Medications Cough Syrup With Codeine 10 ml PO ONCE 05/17/18 [History] Ibuprofen TAB* [Motrin TAB* 600 MG] 1,800 mg PO Q6H PRN 05/17/18 [History Confirmed 05/17/18] PMH/Surg Hx/FS Hx/Imm Hx - Additional Past Medical History Additional PMH: Influenza 04/10/18 - Surgical History Surgical History: Yes Surgery Procedure, Year, and Place: tubal ligation, cholecystectomy, hysterectomy - Family History Known Family History: Positive: Cardiac Disease - Social History Occupation: Employed Full-time Lives: With Family Alcohol Use: Occasionally Substance Use Type: None Smoking Status (MU): Never Smoked Tobacco Have You Smoked in the Last Year: No Household Exposure Type: Cigarettes - Immunization History Most Recent Influenza Vaccination: [id number] Vaccination Up to Date: Yes Review of Systems Constitutional: Negative Skin: Negative Eyes: Negative ENT: Negative Respiratory: Cough, Other - laryngitis Cardiovascular: Negative Gastrointestinal: Negative Genitourinary: Negative Motor: Negative Neurovascular: Negative Musculoskeletal: Negative Neurological: Negative Psychological: Negative Is Patient Immunocompromised?: No All Other Systems Reviewed And Are Negative: Yes Physical Exam Triage Information Reviewed: Yes Appearance: Well-Appearing Vital Signs: Initial Vital Signs Temp 98.6 F 05/17/18 08:22 Pulse 105 05/17/18 08:22 Resp 18 05/17/18 08:22 BP 137/79 05/17/18 08:22 Pulse Ox 98 05/17/18 08:22 Vital Signs Reviewed: Yes Eyes: Positive: Conjunctiva Clear ENT: Positive: Pharynx normal, TMs normal, Hoarse voice, Uvula midline. Negative: Nasal congestion, Nasal drainage, Tonsillar swelling, Tonsillar exudate, Trismus, Muffled voice Neck: Positive: Supple, Nontender, No Lymphadenopathy Respiratory: Positive: Lungs clear, No respiratory distress, Decreased breath sounds, Other: - frequent congested bronchospastic cough Cardiovascular: Positive: RRR, No Murmur Abdomen Description: Positive: Nontender, No Organomegaly, Soft Bowel Sounds: Positive: Present Musculoskeletal: Positive: ROM Intact, No Edema Neurological: Positive: Alert Psychological: Positive: Age Appropriate Behavior Skin Exam: Normal Diagnostics - Radiology No standard instances Radiology Interpretation Completed By: Radiologist - IMPRESSION: NO EVIDENCE FOR ACTIVE CARDIOPULMONARY DISEASE. Course/Dx - Course Course Of Treatment: non toxic. not hypoxic. cxr unremarkable. less cough, improved aeration and pt notes breathing seems easier post neb and po steroid. no indication for antibiotics. will tx with albuterol inhaler and po steroids plus close f/u for recheck. pt advised, go to ER for any changes or worsening. - Differential Dx - Multi-Symptom Provider Diagnoses: Laryngitis. Bronchospasm Discharge - Sign-Out/Discharge Documenting (check all that apply): Patient Departure - Discharge Plan Condition: Improved Disposition: HOME Prescriptions: Albuterol HFA INHALER* [Ventolin HFA Inhaler*] 2 puff INH Q6H #1 mdi predniSONE [Prednisone 20 MG TAB] 40 mg PO DAILY 5 Days #10 tablet Patient Education Materials: Laryngitis (ED), Bronchospasm (ED) Referrals: Jie Vyas PA [Primary Care Provider] - - Billing Disposition and Condition Condition: IMPROVED Disposition: Home
== END 2018-05-17 10:19 | disposition home or self-care (01) ==
LOC: UCCORT 08:14
DX: J04.0 Acute laryngitis (principal); J98.01 Acute bronchospasm; Z77.22 Contact with and (suspected) exposure to environmental tobacco smoke (acute) (chronic)
CPT/HCPCS: 71046; 99212; G0463; J7512